=== PATIENT | female | born 1930 | race Caucasian/White ===

== ENCOUNTER → 2016-11-25 | Outpatient (CLI) | payer OTHER ==
[~2016-11-25] MED LIST: ACET325T96 PO; ASPEC325 PO; CALCTAB7 PO; CLB200 PO; CLC100 PO; CLX20 PO; MCRK20 PO; RQP25 PO; WARF1TAB PO; vancomycin IV.
--- NOTE | 2016-11-25 12:09 | DIAGNOSTIC IMAGING REPORT ---
PET/CT SKULL-THIGH CLINICAL HISTORY: LUNG CANCER COMPARISON STUDY: No previous studies for comparison. FINDINGS: The patient was injected with 16 mCi of F 18 labeled FDG. Following the standard induction phase, PET/CT scanning was performed from the skull base to the upper thigh region. Within the neck, there is an FDG avid multinodular right lobe thyroid goiter. Significant left lobe thyroid tissue is not visualized and correlation with a history of prior surgery is advocated. The thyroid gland has FDG maximum of 5.9. Adjacent to the right lobe of the thyroid isn't FDG avid 11 mm lymph node with SUV maximum of 9.3. Within the chest, there is an FDG avid 1 cm right paratracheal lymph node with SUV maximum of 7.9. Additional smaller nonpathologically enlarged right paratracheal lymph nodes are also FDG avid. There are FDG avid nonpathologically enlarged AP window lymph nodes. There is an FDG avid nonpathologically enlarged subcarinal lymph node. There is a left-sided chest tube present. There is a loculated moderate left pleural effusion. The left pleural surface is FDG avid. In the absence of pleural cysts, this may indicate pleural metastatic disease. There is an 18 mm spiculated nodule within the anterior aspect of the left upper lobe. This is FDG avid with SUV maximum of 5.7. There are left lower lobe atelectatic changes. Within the abdomen, there is mild thickening of the left adrenal gland which is FDG avid with an FDG maximum of 3.3. There is no pathologic hepatic activity. There is cholelithiasis. There are postsurgical changes present within the lumbar spine and left hip.. IMPRESSION: 1. 18 mm spiculated nodule within the anterior aspect of the left upper lobe. This is FDG avid with SUV maximum of 5.7. Malignancy is suspected. 2. FDG avid mediastinal lymph nodes. 3. FDG avid right supraclavicular lymph node 4. FDG avid multinodular right lobe thyroid goiter. 5. Moderate loculated left pleural effusion. Left pleural drain. FDG avid pleural surface on the left. In the absence of a pleurodesis, the findings are viewed as suspicious for pleural metastasis. Electronically signed by: Manjit Ogden M.D. 11/25/2016 12:07 PM Dictated Date/Time: 11/25/2016 11:53 AM
== END | disposition home or self-care (01) ==
LOC: C.PET 08:49
PROVIDERS: ATTEND Internal Medicine Hematology & Oncology
DX: C34.90 Malignant neoplasm of unspecified part of unspecified bronchus or lung (principal)

== ENCOUNTER 2016-12-02 13:02 | Inpatient (IN) | payer OTHER ==
[~2016-12-02] VITALS: Ht 160 cm; Wt 52.4 kg
[~2016-12-02 13:02] MED LIST changes: -ACET325T96 PO; -CALCTAB7 PO; -CLC100 PO; -CLX20 PO; -MCRK20 PO; -RQP25 PO; -WARF1TAB PO; -vancomycin IV.
[2016-12-02] MEDS ORDERED: ONDANSETRON INJ 2 MG/ML 2 ML VIAL IV PRN (13:15)
[2016-12-02] MEDS ORDERED: ENOXAPARIN 40 MG/0.4 ML SYR SQ SCH (13:15)
[2016-12-02] MEDS ORDERED: ACETAMINOPHEN 325 MG TAB PO PRN (13:15)
[2016-12-02] MEDS ORDERED: BISACODYL 10 MG SUPP PR PRN (13:15)
[2016-12-02] MEDS ORDERED: SOD PHOSPHATE/SOD BIPHOSPHATE ENEMA 132 ML BTL PR PRN (13:15)
[2016-12-02 13:45] VITALS: BP 94/65; PULSE 93; TEMP 36.4; O2SAT 92; BMI 18.8
[2016-12-02] MEDS ORDERED: DORNASE ALFA 2.5MG 5 ML in SYRINGE 25 ML IPL ONE (13:45)
[2016-12-02] MEDS ORDERED: DORNASE ALFA (2500U) 2.5MG/2.5ML IPL ONE (13:45)
[2016-12-02] MEDS ORDERED: ALTEPLASE, RECOMBINANT 1 MG/ML 2 ML VIAL IPL ONE (13:45)
[2016-12-02] MEDS ORDERED: PATIENT'S HEIGHT AND/OR WEIGHT NEEDED SCH (14:15)
--- NOTE | 2016-12-02 14:31 | Progress Note ---
Progress Note Date of Service December 02, 2016. Progress Note spoke with ct surgery regarding pt, send in from office after eval for previous placed chest tube. reportedly, pt with h/o MRSA empyema, chest tube placed at another facility, not draining, admitted from office today. Plan is undergo additional procedure today to increase drainage. then will be admitted and placed on abx. Outside records reportedly + for MRSA empyema. Formal consult to follow, pt for procedure today Would suggest sending fluid for culture, would also obtain blood cultures Will review records, would suggest starting Vanco IV pending additional culture results await results
[2016-12-02] MEDS: SODIUM CHLORIDE 0.9% 1000ML 1,000 ML IV SCH (14:40)
[2016-12-02 14:45] VITALS: BP 92/62; PULSE 100; TEMP 36.2; O2SAT 92
[2016-12-02 14:56] LABS: BASO % 0.1 %; BASO ABS # 0.02 K/uL (0-0.2); EOS % 0.1 %; HEMATOCRIT 42.1 % (37-47); IG% 1.5 %; LYMPH % 4.4 %; LYMPH ABS # 0.76 K/uL (1.2-3.4); MEAN CELL VOLUME 87.5 fL (80-100); MEAN CORPUSCULAR HEMOGLOBIN 29.3 pg (25-34); MEAN PLATELET VOLUME 9.6 fL (7.4-10.4); MONO % 3.2 %; NEUT % 90.7 %; PLATELET COUNT 415 K/uL (130-400); RED BLOOD COUNT 4.81 M/uL (4.2-5.4)
[2016-12-02 14:58] LABS: COMPLETE YES; MEAN CORPUSCULAR HGB CONC 33.5 g/dl (32-36)
[2016-12-02 15:09] LABS: INR 1.1 (0.9-1.1); PARTIAL THROMBOPLASTIN RATIO 1.1; PROTHROMBIN TIME (PATIENT) 11.4 SECONDS (9.0-12.0)
[2016-12-02] MEDS ORDERED: VANCOMYCIN TROUGH ONE (15:30)
[2016-12-02 15:43] LABS: ALB/GLOB RATIO 0.5 (0.9-2); BUN/CREATININE RATIO 17.7 (10-20); CALCIUM 8.8 mg/dl (8.5-10.1); MAGNESIUM 2.3 mg/dl (1.8-2.4)
--- NOTE | 2016-12-02 15:47 | DIAGNOSTIC IMAGING REPORT ---
CHEST ONE VIEW PORTABLE CLINICAL HISTORY: empyema COMPARISON STUDY: PET/CT scan dated 11/25/2016 FINDINGS: The heart is enlarged. There is been interval insertion of a left-sided chest tube. There is a persistent left pleural effusion with associated left basilar atelectasis/consolidation. No pneumothorax is visualized. The right lung is clear[ IMPRESSION: 1. Interval insertion of a left-sided chest tube 2. Persistent left pleural effusion with associated left lower lobe atelectasis/consolidation Electronically signed by: Manjit Ogden M.D. 12/02/2016 3:45 PM Dictated Date/Time: 12/02/2016 3:43 PM
[2016-12-02] MEDS ORDERED: LIDOCAINE HCL 1% 20 ML VIAL ONE (16:04)
[2016-12-02 16:32] VITALS: O2SAT 92
[2016-12-02] MEDS ORDERED: VANCOMYCIN CONSULT ACTIVE PRN (16:45)
[2016-12-02] MEDS ORDERED: VANCOMYCIN INJ 1,350 MG in SODIUM CHLORIDE 0.9% 250ML 250 ML IV ONE (17:00)
--- NOTE | 2016-12-02 17:15 | HISTORY & PHYSICAL EXAMINATION ---
DATE OF ADMISSION: 12/02/2016 HISTORY OF PRESENT ILLNESS: Ms. Sanchez is an 86-year-old female who was found to have a large left pleural effusion and underwent insertion of a PleurX catheter down at [facility] at least 2-3 weeks ago. She underwent a PET scan on 11/25/2016 which showed hypermetabolic activity which was consistent with the adenocarcinoma which was seen on cytology of the pleural fluid. This PleurX catheter was directed towards the apex. There is not really any fluid. I was asked to see her today to help manage this catheter. We drained a few mL of pus and I am told by her machine learning intern that they have cultured methicillin-resistant Staph aureus. For this reason, we asked for her to be admitted, although she does not appear to be febrile, she was quite cachectic in appearance and was not as responsive as I would have liked. I had a long talk with the patient and her younger sister. We brought her into the hospital and I attempted to do MIST-2 protocol and then instilled tissue plasminogen activator into this tube, but we got very little and it simply would not go in. We got very little out. We then tried Pulmozyme and the same thing happened. I was concerned about her and after reviewing her CT which was done with her PET scan on 11/25/2016, I elected to insert another PleurX catheter. This was done at the patient's bedside and we drained about 1600 mL of clear yellow fluid with a pH of 7.41. It is unlikely that we are simply dealing with a loculated pleural effusion and she does not have an empyema. We are going to check a CT scan now. For specifics of my history and physical, please see the office note dated today.
[2016-12-02 17:52] LABS: PLEURAL FLUID TOTAL PROTEIN 4.5 g/dl
[2016-12-02 18:23] LABS: PLEURAL FLUID APPEARANCE CLEAR; PLEURAL FLUID COLOR YELLOW; PLEURAL FLUID MONONUC RELAT 87.3 %; PLEURAL FLUID POLYNUC 12.7 %; PLEURAL FLUID SOURCE LEFT LUNG; PLEURAL FLUID WBC (A) 334 /uL
[2016-12-02] MEDS: BUDESONIDE 0.5 MG/2 ML VIAL (PULMICORT) INH SCH (19:17)
[2016-12-02 19:24] VITALS: PULSE 92; O2SAT 93
[2016-12-02 20:21] VITALS: BP 99/66; PULSE 91; TEMP 36.6; O2SAT 95
--- NOTE | 2016-12-02 20:43 | Pharmacy Progress Note ---
Pharmacy Antibiotic Consult Date of Service: December 02, 2016. Pharmacy Dosing Scope Pharmacy is consulted to initiate Vancomycin IV dosing therapy, order appropriate labs and adjust drug dose/frequency. Subjective The patient is a 86 year old female admitted on December 02, 2016 at 13:31. Objective Height (Feet): 5 Height (Inches): 6.00 Weight (Kilograms): 52.900 Lab Results (24hrs): Laboratory Tests Test 12/02/16 14:35 BUN/Creatinine Ratio 17.7 Blood Urea Nitrogen 18 mg/dl Creatinine 1.00 mg/dl White Blood Count 17.40 K/uL Red Blood Count 4.81 M/uL Hemoglobin 14.1 g/dL Hematocrit 42.1 % Mean Corpuscular Volume 87.5 fL Mean Corpuscular Hemoglobin 29.3 pg Mean Corpuscular Hemoglobin Concent 33.5 g/dl Platelet Count 415 K/uL Mean Platelet Volume 9.6 fL Neutrophils (%) (Auto) 90.7 % Lymphocytes (%) (Auto) 4.4 % Monocytes (%) (Auto) 3.2 % Eosinophils (%) (Auto) 0.1 % Basophils (%) (Auto) 0.1 % Neutrophils # (Auto) 15.78 K/uL Lymphocytes # (Auto) 0.76 K/uL Monocytes # (Auto) 0.56 K/uL Eosinophils # (Auto) 0.02 K/uL Basophils # (Auto) 0.02 K/uL Micro Results: Item Value Date Time Blood Culture Received 12/02/16 1435 Blood Pending Blood Culture Received 12/02/16 1446 Blood Pending Gram Stain - Final Resulted 12/02/16 1630 Pleural Fluid (Thoracentesis) Left Acid Fast Stain Received 12/02/16 1630 Pleural Fluid (Thoracentesis) Left Pending Fungal Smear Received 12/02/16 1630 Pleural Fluid (Thoracentesis) Left Pending MRSA DNA Surveillance Screen - Final Complete 12/02/16 1800 Nasal Specimen Positive for MRSA by DNA Probe Assessment & Plan Assessment 86 yr old female admitted with MRSA empyema s/p PleurX catheter placement. Plan Vancomycin IV for treatment of MRSA empyema * Loading dose: 1350 mg IV X 1 * Maintenance dose: 800 mg IV every 24 hours * Goal trough level estimate for empyema: between 15 - 20 mcg/mL. * Trough level has been ordered for: . Pharmacy will continue to follow and will adjust dose/frequency as necessary. Thank you
[2016-12-02] MEDS: DOCUSATE SODIUM 100 MG CAP PO SCH (20:44)
[2016-12-02] MEDS: HEPARIN SOD 5000 UNIT/0.5 ML CARP SQ SCH (20:45)
--- NOTE | 2016-12-02 22:18 | DIAGNOSTIC IMAGING REPORT ---
CT SCAN OF THE CHEST WITHOUT IV CONTRAST CLINICAL HISTORY: Pleural effusion. History of lung cancer. COMPARISON STUDY: PET/CT dated 11/25/2016. Chest x-ray dated 12/02/2016. TECHNIQUE: CT scan of the thorax was performed from the thoracic inlet to the upper abdomen. Images are reviewed in the axial, sagittal, and coronal planes. IV contrast was not administered for this examination as per the referring clinician. Note that the examination was performed in suboptimal fashion without IV contrast. CT DOSE: 346.21 mGy.cm FINDINGS: Thyroid: The right lobe of the thyroid gland is markedly enlarged and heterogeneous. Numerous nodules are identified measuring up to at least 2 cm. The left lobe is diminutive versus surgically absent. Thoracic aorta: There is mild atherosclerotic calcification of the thoracic aorta, which is normal in caliber and demonstrates standard 3-vessel arch anatomy. Heart: The heart is normal in size and there is a small pericardial effusion. Lungs and pleural spaces: A chest tube terminates at the left apex, entering laterally between the seventh and eighth ribs. There is trace left-sided pneumothorax, largest at the left lung base as seen on image #192. There are moderate left and small right pleural effusions with associated atelectasis. Mild emphysema is noted. Patchy airspace opacities at the left lung base likely represent atelectasis. A 2.1 cm spiculated lesion in the anterior left upper lobe seen on image #163 is unchanged. Mediastinum: There are mildly enlarged mediastinal lymph nodes. A precarinal node on image #114 and measures 11 mm short axis. A mildly enlarged subcarinal node on image #144 measures 12 mm short axis. These are similar to the 11/25/2016 and PET examination. Inés: Not well assessed without IV contrast. Axillae: There is no axillary lymphadenopathy. Upper abdomen: There is a punctate nonobstructing calculus in the upper pole of the right kidney. A small hiatal hernia is identified. An indeterminant attenuation lesion in the right hepatic lobe on image #239 is unchanged and measures 2.7 cm. Calcified gallstones are identified. Skeletal structures: The skeletal structures are osteopenic. No lytic or blastic bony lesions are seen. Fusion hardware is partially imaged at the thoracal lumbar junction. There is a severe compression deformity of L2, only partially imaged. IMPRESSION: 1. A left-sided chest tube is in place. The tip terminates at the left apex. 2. There is a trace left pneumothorax. 3. There are moderate left and small right pleural effusions. 4. A spiculated lesion in the left upper lobe as well as mildly enlarged mediastinal lymph nodes are not significantly changed from the 11/25/2016 examination. 5. Patchy airspace opacities at the left lung base likely represent atelectasis. Correlated clinically for evidence of superimposed pneumonia/aspiration pneumonitis. 6. Cholelithiasis and right-sided nephrolithiasis. 7. Additional findings as above. Electronically signed by: Vincent Pitts M.D. 12/02/2016 10:17 PM Dictated Date/Time: 12/02/2016 10:09 PM
[2016-12-02 22:22] LABS: URINE APPEARANCE CLEAR (CLEAR); URINE BILIRUBIN NEG (NEG); URINE COLOR DK YELLOW; URINE NITRITE NEG (NEG); URINE PH 5.5 (4.5-7.5); URINE SPECIFIC GRAVITY 1.033 (1.000-1.030); UROBILINOGEN NEG (NEG)
[2016-12-02 22:26] LABS: MANUAL MICROSCOPIC REQUIRED? NO; REVIEW REQ? NO
[2016-12-03] VITALS (10 sets, daily range): BP systolic 96–114; BP diastolic 56–70; PULSE 83–96; TEMP 36.5–36.8; O2SAT 93–100; BMI 16.9
[2016-12-03] MEDS: SODIUM CHLORIDE 0.9% 1000ML 1,000 ML IV SCH ×2 (02:30→15:37)
--- NOTE | 2016-12-03 03:28 | OPERATIVE REPORT ---
DATE OF OPERATION: 12/02/2016 PREOPERATIVE DIAGNOSES: 1. Possible methicillin-resistant Staphylococcus aureus empyema left pleural cavity. 2. Left malignant pleural effusion. 3. Probable lung cancer. POSTOPERATIVE DIAGNOSES: Same. PROCEDURE: Insertion of a left PleurX catheter. SURGEON: Huang Coates MD AUTOMATION ANALYST: MARY Casanova ANESTHESIA: Local. SPECIFICS OF PROCEDURE: Under ultrasound guidance, an area was selected anterior and a bit posterior to the mid axillary line. After prepping and draping in usual sterile technique and calling appropriate timeout, a skin wheal was raised 25-gauge needle, 1% Xylocaine. A large bore needle was used to anesthetize the skin and subcutaneous tissues until we had free flowing clear fluid back. Guidewire was inserted through the needle and needle removed. This insertion site was enlarged to 1 cm at the site the guidewire was exiting. Approximately 10 cm anterior and inferior, no skin wheal was raised 25-gauge needle, 1% Xylocaine. A 1 cm incision was made. A long needle with 1% Xylocaine was used to anesthetize subcutaneous tissues between the 2 incision sites. A tunneler was attached to the PleurX catheter and dragged from the anterior to posterior site. A tunneler was removed. Then an introducer sheath was slid over the guidewire into the pleural cavity and the inner cannula and guidewire removed and then the PleurX catheter was inserted through the peel away sheath which was removed. Two separate 3-0 silk sutures were used to close the posterior incision and 3-0 silk suture was used to anchor the PleurX to the patient's skin anteriorly. 1600 mL of clear yellow fluid was drained. The pH was 7.41. We are going to send the patient down for a CT scan without contrast. I attest to the content of the Intraoperative Record and any orders documented therein. Any exceptio ns are noted below.
[2016-12-03 05:56] LABS: BASO % 0.4 %; BASO ABS # 0.04 K/uL (0-0.2); COMPLETE YES; EOS % 1.1 %; HEMATOCRIT 36.8 % (37-47); IG% 1.8 %; LYMPH % 9.6 %; LYMPH ABS # 1.09 K/uL (1.2-3.4); MEAN CELL VOLUME 87.4 fL (80-100); MEAN CORPUSCULAR HEMOGLOBIN 28.7 pg (25-34); MEAN CORPUSCULAR HGB CONC 32.9 g/dl (32-36); MEAN PLATELET VOLUME 9.2 fL (7.4-10.4); MONO % 7.3 %; NEUT % 79.8 %; PLATELET COUNT 342 K/uL (130-400); RED BLOOD COUNT 4.21 M/uL (4.2-5.4); WHITE BLOOD COUNT 11.31 K/uL (4.8-10.8)
[2016-12-03] MEDS ORDERED: DORNASE ALFA (2500U) 2.5MG/2.5ML INH ONE (06:30)
[2016-12-03] MEDS ORDERED: ALTEPLASE, RECOMBINANT 1 MG/ML 2 ML VIAL IPL ONE ×4 (06:30→15:00)
[2016-12-03] MEDS ORDERED: DORNASE ALFA (2500U) 2.5MG/2.5ML IPL ONE ×2 (06:30→15:00)
[2016-12-03] MEDS ORDERED: DORNASE ALFA 2.5MG 5 ML in SYRINGE 25 ML IPL ONE ×2 (06:30→15:00)
[2016-12-03] MEDS ORDERED: ALTEPLASE, RECOMBINANT 1 MG/ML 2 ML VIAL IV ONE (06:30)
[2016-12-03] MEDS: BUDESONIDE 0.5 MG/2 ML VIAL (PULMICORT) INH SCH ×2 (07:14→19:08)
--- NOTE | 2016-12-03 07:25 | DIAGNOSTIC IMAGING REPORT ---
CHEST ONE VIEW PORTABLE CLINICAL HISTORY: Empyema. COMPARISON STUDY: Chest CT December 02, 2016. FINDINGS: Lumbar spine fusion hardware is partially imaged. There is a trace left pneumothorax. A small residual left pleural effusion has significantly decreased in size since chest radiograph December 02, 2016. There is no evidence of pulmonary edema. Cardiac size is normal. Mediastinal contours are normal. Two left pleural drains remain in place. IMPRESSION: Two left pleural catheters in place. Trace left pneumothorax with small residual pleural effusion. Electronically signed by: Rito Hart M.D. 12/03/2016 7:24 AM Dictated Date/Time: 12/03/2016 7:21 AM
[2016-12-03] MEDS: HEPARIN SOD 5000 UNIT/0.5 ML CARP SQ SCH ×2 (07:33→20:33)
[2016-12-03] MEDS: CITALOPRAM 20 MG TAB PO SCH (07:34)
[2016-12-03] MEDS: DOCUSATE SODIUM 100 MG CAP PO SCH ×2 (07:35→20:28)
--- NOTE | 2016-12-03 08:28 | SURGERY PROGRESS NOTE ---
DATE: 12/03/2016 DATE: 12/03/2016. Ms. Sanchez was seen today and quite frankly looks quite good. Her pulse oximetry is 97% on room air and she had a comfortable night. I was actually in the hospital about 11:00 last night and she was soundly sleeping. Her x-ray today looks much improved. Her CT scan shows she does have some loculations. Her old PleurX catheter is going to be removed today. We are also going to institute the MIST-2 protocol through our new PleurX catheter. She was drained for about 650 mL today. She looks much better. She also feels better and is more awake and alert.
--- NOTE | 2016-12-03 11:36 | Progress Note ---
Progress Note Date of Service December 03, 2016. Progress Note ID Consult Dictated #[id number] A/P: 1. PATRICK empyema, newly diagnosed adeno ca 2. + blood culture 3. Leukocytosis - improving -continue vanco, follow cultures -repeat blood cultures -suggest echo -follow fluid culture, no growth to date -will follow, thank you
--- NOTE | 2016-12-03 12:08 | INFECT. DISEASE CONSULTATION ---
DATE OF CONSULTATION: 12/03/2016 REQUESTING PHYSICIAN: Dr. Coates. HISTORY OF PRESENT ILLNESS: This is an 86-year-old female who was admitted yesterday from CT surgery office after she was evaluated there for a left pleural effusion and a chest tube insertion. This was initially done at [facility] 2-3 weeks prior to admission. She did have a PET scan at the end of October on an outpatient basis which did show adenocarcinoma. This was also noted on cytology from pleural fluid per the H\T\P. Per the H\T\P, she does have a history of MRSA growing from the pleural fluid as well. She was subsequently admitted for treatment of this as well as a repeat procedure as she was not having a significant amount of drainage from the catheter. She did have a catheter exchange yesterday and 1.6 liters of clear yellow fluid was returned. She tolerated the procedure well. She denies any fevers or chills. She denies any shortness of breath. She was placed empirically on vancomycin and she is tolerating this well. All remaining review of systems is reviewed and is unremarkable. PAST MEDICAL HISTORY: She denies any other significant past medical history other than recently diagnosed adenocarcinoma. PAST SURGICAL HISTORY: Include back surgery as well as chest tube placement. ALLERGIES: She has no known drug allergies. FAMILY HISTORY: Noncontributory. CURRENT MEDICATIONS: Include vancomycin, Celexa, subQ heparin, Pulmicort, Colace, Tylenol, Zofran, Dulcolax, and Percocet. PHYSICAL EXAMINATION: VITAL SIGNS: She is afebrile, pulse 96, respiratory rate 20, blood pressure 100/56, oxygen saturation is 94-97% on room air. GENERAL: She is awake, alert and oriented x3. She is in no acute distress. HEENT: Mucous membranes are moist. She is overall cachectic appearing. HEART: Regular. LUNGS: Clear with decreased breath sounds bilaterally. A chest tube is in place on the left. ABDOMEN: Soft and nontender. There is no edema bilaterally. SKIN: Without rash. LABORATORY STUDIES: CBC today reveals a white blood cell count of 11.3 down from 17.4 yesterday, hemoglobin 12.1 and platelets are 342. Chemistry panel yesterday reveals a sodium of 138, potassium 4.0, chloride 103, bicarbonate 26, BUN 18, creatinine 1.0, glucose is 135. AST is 36, ALT is 56. Left lung fluid reveals a yellow clear fluid with 334 WBC's, the majority being neutrophils. A urine culture, fungal, AFB and routine cultures so far from the pleural fluid are negative. She did have blood cultures done yesterday upon admission and they are growing gram positive cocci in 1 of 2 sets. IMAGING DATA: Chest CT was performed yesterday which shows a chest tube in the left lung with trace pneumothorax. There is moderate left effusion with associated atelectasis, a spiculated lesion in the left upper lobe is unchanged from studies on November 25. Chest x-ray was obtained this morning which shows a trace pneumothorax. ASSESSMENT AND PLAN: 1. Positive blood cultures with gram positive cocci. 2. Reported empyema with history. At this time, blood cultures will be repeated and echocardiogram should be obtained. I will await cultures of both blood and pleural fluid. We will follow along with you. Thank you for this consultation.
--- NOTE | 2016-12-03 15:04 | Progress Note ---
Progress Note Date of Service December 03, 2016. Progress Note Through new pleurex catheter that was placed yesterday, 10 mg alteplase instilled (0800). Catheter drained 1 hour later for minimal drainage. 5 mg dornse subsequently instilled (0930) Old pleurex catheter was removed without difficulty. 10 mg alteplase placed in pleurex at 1530. Drained 1 hour later for 250 cc. 5 mg dornase placed at 1630. RN to drain in 2 hours
[2016-12-03] MEDS ORDERED: VANCOMYCIN INJ 800 MG in SODIUM CHLORIDE 0.9% 250ML 250 ML IV SCH (16:00)
[2016-12-04] VITALS (8 sets, daily range): BP systolic 92–102; BP diastolic 60–65; PULSE 80–93; TEMP 36.5–36.9; O2SAT 94–96; BMI 18.3
[2016-12-04] MEDS: SODIUM CHLORIDE 0.9% 1000ML 1,000 ML IV SCH ×2 (04:55→18:28)
[2016-12-04] MEDS ORDERED: ALTEPLASE, RECOMBINANT 1 MG/ML 2 ML VIAL IPL ONE ×3 (06:30→14:30)
[2016-12-04] MEDS ORDERED: DORNASE ALFA (2500U) 2.5MG/2.5ML INH ONE (06:30)
[2016-12-04] MEDS ORDERED: DORNASE ALFA (2500U) 2.5MG/2.5ML IPL ONE ×2 (06:30→14:30)
[2016-12-04] MEDS ORDERED: ALTEPLASE, RECOMBINANT 1 MG/ML 2 ML VIAL IV ONE ×2 (06:30→14:30)
[2016-12-04] MEDS ORDERED: DORNASE ALFA 2.5MG 5 ML in SYRINGE 25 ML IPL ONE (06:30)
[2016-12-04] MEDS: HEPARIN SOD 5000 UNIT/0.5 ML CARP SQ SCH ×2 (07:31→19:40)
[2016-12-04] MEDS: DOCUSATE SODIUM 100 MG CAP PO SCH ×2 (07:32→19:37)
[2016-12-04] MEDS: CITALOPRAM 20 MG TAB PO SCH (07:33)
--- NOTE | 2016-12-04 07:38 | DIAGNOSTIC IMAGING REPORT ---
CHEST ONE VIEW PORTABLE CLINICAL HISTORY: Effusion. History of lung cancer. COMPARISON STUDY: Chest radiograph December 03, 2016. FINDINGS: Lumbar spine hardware is partially imaged. One left pleural catheter remains in place. There is a trace left pneumothorax. There is a trace left pleural effusion. Bibasilar opacities favor atelectasis. Emphysema is noted. Cardiac size is normal. Mediastinal contours are normal. IMPRESSION: Left pleural catheter remains in place. Trace left hydropneumothorax. Electronically signed by: Rito Hart M.D. 12/04/2016 7:37 AM Dictated Date/Time: 12/04/2016 7:35 AM
[2016-12-04] MEDS: BUDESONIDE 0.5 MG/2 ML VIAL (PULMICORT) INH SCH ×2 (07:41→19:07)
--- NOTE | 2016-12-04 09:33 | SURGERY PROGRESS NOTE ---
DATE: 12/04/2016 DATE: 12/04/2016. Ms. Sanchez was seen today on 12/04/2016. We removed her superior left PleurX catheter, which appeared to be infected yesterday. We have been using the MIST protocol and have actually drained quite a bit of fluid from her. Initially, we did not drain much; however yesterday we drained a total of 1200 mL and this morning drained 275. We have been instilling the tissue plasminogen activator as well as Pulmozyme. I thought her x-ray looked quite good. She has a tiny area of hydropneumothorax but this is probably a result of injecting the TPA in this morning. At this point, she does have multiple blood cultures positive for staph aureus. It is important to note that her white count dropped from 17,400 on admission to 11,310. She is on room air 95% sat. She looks much better. She is much more lucid. She is sitting up eating breakfast. She feels much improved but really does not remember being in my office the other day. ASSESSMENT AND PLAN: Questionable right empyema/this could have been infection of the PleurX catheter itself. We see no growth in the pleural fluid we sent off. I thought her x-ray looked quite good today. We are going to continue the MIST-2 protocol through the weekend and repeat a CT scan on Wednesday.
--- NOTE | 2016-12-04 11:29 | Pharmacy Progress Note ---
Pharmacy Antibiotic Prog Note Date of Service December 04, 2016. Subjective The patient is currently receiving vancomycin 800 mg IV every 24 hours. The patient is currently on day # 3 of vancomycin IV therapy. Objective Height (Feet): 5 Height (Inches): 6.00 Weight (Kilograms): 51.500 Assessment & Plan Assessment * 86 yo F with empyema/possible PleurX catheter infection s/p removal today (12/04 ) now with confirmed 2/2 S. aureus in 12/02/16 blood cultures. 12/03/16 blood cultures pending. WBC trending down, but still elevated. Afebrile. * Goal vancomycin level 15-20 mcg/mL * Level was scheduled for tomorrow. However, due to confirmed bacteremia will move up level to today. Of note, this will be prior to steady state (and thus may be falsely low) but will allow for estimation of steady state level to help determine if a change in dose is necessary * Level was significantly subtherapeutic at 4.5 mcg/mL * Sent up one time 20 mg/kg re-load * Will shorten interval from q24h to q12h * SCr not drawn since admission. Will order for today, with trough level. * Still pending at this time. Not likely to be significantly elevated as the vancomycin level is very low. Will follow-up this evening to be sure. Plan * Increase vancomycin 1000 mg IV x1 now then 800 mg IV q12h * Vancomycin trough 12/06 @ 0330 * Follow-up SCr today to ensure not significantly elevated above baseline Pharmacy will continue to follow and will adjust dose/frequency as necessary. Thank you
--- NOTE | 2016-12-04 14:16 | Progress Note ---
Subjective Date of Service: December 04, 2016. Subjective pt initial blood cultures with S.aureus, final pending. No fevers overnight. pleural fluid cultures so far negative, reported MRSA from [facility] cultures. Repeat blood cultures pending,tolerating abx. wbc imrproving today. Objective Vital Signs Date Time Temp Pulse Resp B/P Pulse Ox O2 Delivery O2 Flow Rate FiO2 12/04/16 11:30 36.5 93 16 100/64 95 Room Air 12/04/16 08:00 Room Air 12/04/16 07:47 36.6 83 16 92/60 95 Room Air 12/04/16 07:10 85 16 94 Room Air 12/04/16 04:00 36.6 88 20 102/65 94 12/04/16 00:00 Room Air 12/03/16 23:44 36.7 83 19 99/62 95 Room Air 12/03/16 20:00 Room Air 12/03/16 19:13 36.8 88 20 105/69 100 Room Air 12/03/16 19:08 91 14 94 Room Air 12/03/16 16:17 36.7 83 14 110/70 94 Room Air 12/03/16 16:00 Room Air Laboratory Results Item Value Date Time Blood Culture - Preliminary Resulted 12/02/16 1435 Blood Staphylococcus Aureus Blood Culture - Preliminary Resulted 12/02/16 1446 Blood Staphylococcus Aureus Gram Stain - Final Resulted 12/02/16 1630 Pleural Fluid (Thoracentesis) Left Assessment and Plan (1) Staphylococcus aureus septicemia Assessment & Plan: follow repeat blood cultures, pending. continue vanco for now. reported h/o MRSA. Await final sensitivity. follow pleural cultures, negative to date. (2) Empyema lung (3) Leukocytosis
[2016-12-04] MEDS: DORNASE ALFA 2.5MG 5 ML in SYRINGE 25 ML IPL ONE (16:00)
[2016-12-04] MEDS ORDERED: VANCOMYCIN INJ 1,000 MG in SODIUM CHLORIDE 0.9% 250ML 250 ML IV STA (16:15)
--- NOTE | 2016-12-04 16:16 | Progress Note ---
Progress Note Date of Service December 04, 2016. Progress Note 10 mg alteplase placed in pleurex (0800) Was drainaed for 75 cc 1 hour later, then 5 mg dornase placed (0900) and drained 2 hours later for 75 cc. 10 mg TPA placed (1500) and drained 1 hour later for 150 cc. 5 mg dornase placed (1615)-- RN to drain in approx 2 hours.
[2016-12-04 16:34] LABS: CREATININE 0.58 mg/dl (0.60-1.20)
[2016-12-04] MEDS: OXYCODONE/ACETAMINOPHEN 5-325 TAB PO PRN (19:37)
[2016-12-05] VITALS (10 sets, daily range): BP systolic 101–116; BP diastolic 65–74; PULSE 84–91; TEMP 36.6–36.8; O2SAT 94–96; BMI 19.9
[2016-12-05] MEDS: VANCOMYCIN INJ 800 MG in SODIUM CHLORIDE 0.9% 250ML 250 ML IV SCH ×2 (04:02→16:43)
[2016-12-05 05:51] LABS: HEMATOCRIT 36.3 % (37-47); MEAN CELL VOLUME 88.8 fL (80-100); MEAN CORPUSCULAR HEMOGLOBIN 27.1 pg (25-34); MEAN CORPUSCULAR HGB CONC 30.6 g/dl (32-36); MEAN PLATELET VOLUME 9.2 fL (7.4-10.4); PLATELET COUNT 323 K/uL (130-400); RED BLOOD COUNT 4.09 M/uL (4.2-5.4); WHITE BLOOD COUNT 6.61 K/uL (4.8-10.8)
[2016-12-05 06:19] LABS: CREATININE 0.52 mg/dl (0.60-1.20)
[2016-12-05] MEDS ORDERED: ALTEPLASE, RECOMBINANT 1 MG/ML 2 ML VIAL IV ONE (06:30)
[2016-12-05] MEDS ORDERED: DORNASE ALFA (2500U) 2.5MG/2.5ML IPL ONE (06:30)
[2016-12-05] MEDS ORDERED: ALTEPLASE, RECOMBINANT 1 MG/ML 2 ML VIAL IPL ONE ×2 (06:30)
[2016-12-05] MEDS ORDERED: DORNASE ALFA (2500U) 2.5MG/2.5ML INH ONE (06:30)
[2016-12-05] MEDS ORDERED: DORNASE ALFA 2.5MG 5 ML in SYRINGE 25 ML IPL ONE (06:30)
--- NOTE | 2016-12-05 07:10 | DIAGNOSTIC IMAGING REPORT ---
CHEST ONE VIEW PORTABLE CLINICAL HISTORY: pleural effusion dyspnea COMPARISON STUDY: 12/04/2016 FINDINGS: Left basilar drainage tube unchanged in location. Mild left and to lesser extent right basilar atelectatic change. Minimal left apical pneumothorax unchanged. IMPRESSION: Unchanged evaluation of the chest. Stable appearance to left basilar drainage catheter. Very small left apical pneumothorax unchanged Electronically signed by: Macario Sterling M.D. 12/05/2016 7:09 AM Dictated Date/Time: 12/05/2016 7:08 AM
[2016-12-05] MEDS: BUDESONIDE 0.5 MG/2 ML VIAL (PULMICORT) INH SCH ×2 (07:43→19:13)
[2016-12-05] MEDS: DOCUSATE SODIUM 100 MG CAP PO SCH ×2 (08:44→20:24)
[2016-12-05] MEDS: CITALOPRAM 20 MG TAB PO SCH (08:44)
[2016-12-05] MEDS: SODIUM CHLORIDE 0.9% 1000ML 1,000 ML IV SCH ×2 (08:45→21:42)
[2016-12-05] MEDS: HEPARIN SOD 5000 UNIT/0.5 ML CARP SQ SCH ×2 (08:45→20:27)
--- NOTE | 2016-12-05 08:54 | SURGERY PROGRESS NOTE ---
DATE: 12/05/2016 DATE: 12/05/2016. SUBJECTIVE: Ms. Sanchez was seen today. She looks great. She is much more awake and oriented. She is 95% saturation on room air and she is not tachypneic. Her lungs sound great. She has no rhonchi, rales or decreased breath sounds. Her PleurX site is clean. Her white count is down to 6610. She did grow out a staph aureus from 2 blood cultures however her last 2 blood cultures are negative. Her x-ray looks quite good today. ASSESSMENT AND PLAN: 1. Loculated malignant right pleural effusion. 2. Questionable staph aureus sepsis. 3. Probable infection of initial superiorly oriented left PleurX catheter which has been removed. PLAN: We are going to continue the MIST protocol today through this afternoon. I am then going to check a CT scan tomorrow on 12/06/[address] scan of the chest will help me determine whether we go ahead and sclerose her with talc while she is here. It is also important to note that the fluid which we have drained through this PleurX catheter has not been infected.
--- NOTE | 2016-12-05 09:08 | OPERATIVE REPORT ---
DATE OF OPERATION: 12/05/2016 DATE OF PROCEDURE: 12/05/2016. PROCEDURE: Installation of thrombolytics via left PleurX catheter. SURGEON: Dr. Coates. SPECIFICS OF PROCEDURE: 10 mg of tissue plasminogen activator was mixed with 50 mL of normal of sterile water and injected sterilely through the tip of the PleurX catheter with a syringe and a sterile Angiocath. She tolerated this well. We will drain her again in the next 1-2 hours and then instill the dornase. I attest to the content of the Intraoperative Record and any orders documented therein. Any exceptio ns are noted below.
--- NOTE | 2016-12-05 11:50 | OPERATIVE REPORT ---
DATE OF OPERATION: 12/05/2016 PROCEDURE: Instillation of DNase via left PleurX catheter. SURGEON: Dr. Coates. SPECIFICS OF PROCEDURE: At the patient's bedside, her left PleurX catheter was sterilely prepped on the tip and 5 mg of Pulmozyme in 30 mL of normal saline was injected sterilely using IV catheter. She tolerated this very well. I re-capped it and we will drain her again in 2 hours. I attest to the content of the Intraoperative Record and any orders documented therein. Any exceptio ns are noted below.
[2016-12-05] MEDS ORDERED: VANCOMYCIN TROUGH ONE (15:30)
[2016-12-06] VITALS (9 sets, daily range): BP systolic 84–131; BP diastolic 54–79; PULSE 81–95; TEMP 36.2–36.8; O2SAT 95–100; BMI 19.3
[2016-12-06] MEDS ORDERED: VANCOMYCIN TROUGH ONE (03:30)
[2016-12-06] MEDS: VANCOMYCIN INJ 800 MG in SODIUM CHLORIDE 0.9% 250ML 250 ML IV SCH (03:54)
--- NOTE | 2016-12-06 07:36 | SURGERY PROGRESS NOTE ---
DATE: 12/06/2016 SUBJECTIVE: Ms. Sanchez was seen today, on 12/06/2016. She is afebrile. Her saturations are 96% on room air. Her PleurX catheter was drained for about 400 mL this morning. She looks and feels good. We are going to check a CT scan on her this morning. WINTER
[2016-12-06] MEDS: BUDESONIDE 0.5 MG/2 ML VIAL (PULMICORT) INH SCH ×2 (07:48→19:28)
[2016-12-06] MEDS: DOCUSATE SODIUM 100 MG CAP PO SCH ×2 (09:10→20:45)
[2016-12-06] MEDS: CITALOPRAM 20 MG TAB PO SCH (09:10)
[2016-12-06] MEDS: HEPARIN SOD 5000 UNIT/0.5 ML CARP SQ SCH ×2 (09:11→20:45)
[2016-12-06 09:30] LABS: CREATININE 0.43 mg/dl (0.60-1.20)
--- NOTE | 2016-12-06 10:11 | DIAGNOSTIC IMAGING REPORT ---
CT OF THE CHEST WITHOUT IV CONTRAST CLINICAL HISTORY: pleural effusion LUNG CARCINOMA. LEFT-SIDED EMPYEMA. COMPARISON STUDY: 12/02/2016 CT DOSE: 245.32 mGy.cm TECHNIQUE: CT of the thorax was performed from the thoracic inlet to the lung bases. Images are reviewed in the axial, sagittal, and coronal planes. IV contrast was not administered for this examination. FINDINGS: Thyroid: There is a multinodular right lobe thyroid goiter. Thoracic aorta: The thoracic aorta is normal in course and caliber, noting standard 3 vessel arch anatomy. Heart: There is a trace pericardial effusion Lungs and pleural spaces: There is no change in the position of the left-sided anterior chest tube. There are bilateral pleural effusions right greater than left. There is lower lobe bronchial wall thickening. There are bibasal airspace opacities, atelectatic versus inflammatory. There is an irregular marginated 19 mm left upper lobe pulmonary mass. Mediastinum: There is a mildly enlarged precarinal lymph node measuring 12 mm in short axis. Inés: Hilar structures are difficult to assess given the lack of intravenous contrast. Borderline enlarged left hilar lymph nodes are suspected Axilla: Clear. Upper abdomen: There is a stable right lobe hepatic hypodensity. There is cholelithiasis. There is mild fullness of the right renal collecting system. Two small upper pole right renal calculi are visualized. Skeletal structures: There are postsurgical changes of a spinal fusion. IMPRESSION: 1. No change in the orientation of the left-sided chest tube 2. Increasing right pleural effusion, and decreasing left pleural effusion 3. Bibasal or dependent airspace opacities, atelectatic versus inflammatory 4. 19 mm spiculated left upper lobe pulmonary mass 5. Mildly enlarged mediastinal lymph nodes 6. Cholelithiasis 7. Right-sided nephrolithiasis. Mild fullness the right renal collecting system 8. Stable nonspecific right lobe hepatic hypodensity Electronically signed by: Manjit Ogden M.D. 12/06/2016 10:09 AM Dictated Date/Time: 12/06/2016 10:02 AM
--- NOTE | 2016-12-06 10:33 | Pharmacy Progress Note ---
Pharmacy Antibiotic Prog Note Date of Service December 06, 2016. Subjective The patient is currently receiving Vanco 800 mg IV every 12 hours. Objective Height (Feet): 5 Height (Inches): 5.00 Weight (Kilograms): 52.500 Levels: Item Value Date Time Vancomycin Level Trough 11.7 mcg/ml 12/06/16 0330 Vancomycin Level Trough 4.5 mcg/ml 12/04/16 1535 Lab Results (24hrs): Test 12/06/16 03:30 12/06/16 08:58 Vancomycin Level Trough 11.7 mcg/ml (SEE COMMENT) Creatinine 0.43 mg/dl (0.60-1.20) Est Creatinine Clear Calc Drug Dose 77.8 ml/min Estimated GFR () 106.7 Estimated GFR (Non- 92.1 Micro Results: RUN DATE: 12/06/16 [facility] PAGE 1 RUN TIME: 951 Specimen Inquiry PATIENT: LAVELL WEEMS LOC: Diamond U # : [id number] AGE/SX: 86/F ROOM: E403 REG : 12/02/[address]: Huang Coates MD : 1930 BED: 1 DIS : STATUS: ADM IN TLOC: SPEC #: [id number] XU: 12/02/16 STATUS: COMP REQ #: [id number] RECD: 12/02/16 [facility] DR: Corey Lisa PA SOURCE: BLOOD ENTR: 12/02/16-[address] [facility] [address]: Kiko Perez M.D. [facility] Jennifer. Naranjo D.O. Whitlark, Huang Chavis MD ORDERED: BLOOD CULTURE Procedure Result Verified Site BLD CULT Final 12/06/16-0952 Organism 1 STAPHYLOCOCCUS AUREUS SENS SENSITIVITY TO FOLLOW SENSITIVITY RESULT INDICATES A METHICILLIN RESISTANT STAPH. AUREUS. PHONED TO [facility] (EBONY TAYLOR) ON 12/06/16 AT 0808 BY Ayad Cruz. Results were verbalized back to NANY. RESULTS WERE ALSO CALLED TO [facility] CONTROL ANSWERING MACHINE ON 12/06/16 BY NANY. Positive Blood Culture Gram Stain Report to ELLIE KEARNEY on 12/03/16 At 0959 [facility] Results were verbalized back to RYAN. 1. STAPHYLOCOCCUS AUREUS Target Route Dose RX AB Cost M.I.C. IQ ------ ----- ------ -- ------ -------- - ------ TRIMET/SULFA S <=0.5/ 9.5 * OXACILLIN R * >2 VANCOMYCIN S 1 ERYTHROMYCIN R >4 TETRACYCLINE S <=4 CLINDAMYCIN S <=0.5 DAPTOMYCIN S <=0.5 RIFAMPIN S <=1 S = SENSITIVE I = INTERMEDIATE R = RESISTANT END OF REPORT RUN DATE: 12/02/16 [facility] PAGE 1 RUN TIME: 1951 Specimen Inquiry PATIENT: LAVELL WEEMS LOC: Diamond U # : [id number] AGE/SX: 86/F ROOM: E403 REG : 12/02/[address]: WhitHuang reddy MD : 1930 BED: 1 DIS : STATUS: ADM IN TLOC: SPEC #: [id number] XU: 12/02/16 STATUS: COMP REQ #: [id number] RECD: 12/02/[address]: Corey Lisa PA SOURCE: NASAL ENTR: 12/02/[address]: Kiko Perez M.D. [facility]: Jennifer. Naranjo D.O. Whitlark, Joseph D., MD ORDERED: MRSA DNA COMMENTS: Has Specimen Been Obtained/Collected? Y Procedure Result Verified Site MRSA DNA (NASAL SWAB) Final 12/02/16-1951 Specimen Positive for MRSA by DNA Probe RESULTS WERE ALSO CALLED TO [facility] CONTROL ANSWERING MACHINE ON 12/02/16 BY THOMAS. Assessment & Plan Pt is currently receiving Vancomycin 800mg (15.5mg/kg) q12. Achieved a trough of 11.7mcg/mL prior to the third maintenance dose. I feel true Css may be close to 15mcg/mL. Ms. Weems is growing MRSA in 09/03 's with an MILTON of 1. Further, she has a MRSA positive nasal swab. Her renal fxn has steadily improved. For these reasons I have opted to increase the Vanco to 900mg (17mg/kg) q12 set to start at 1600 on 12/06/16. Lastly, her BMI is not indicative of Vanco accumulation. I have ordered a trough for 12/08/16 @ 0330 prior to the 4th MD to ensure therapeutic levels are being achieved. Thank you for consulting the pharmacy kinetic team and including us in the care of Ms. Weems. Pharmacy will continue to follow and will adjust dose/frequency as necessary. Thank you
[2016-12-06] MEDS: SODIUM CHLORIDE 0.9% 1000ML 1,000 ML IV SCH ×2 (11:00→23:49)
[2016-12-06] MEDS: VANCOMYCIN INJ 900 MG in SODIUM CHLORIDE 0.9% 250ML 250 ML IV SCH (16:00)
[2016-12-07] VITALS (8 sets, daily range): BP systolic 109–130; BP diastolic 70–79; PULSE 74–89; TEMP 36.6–36.8; O2SAT 92–96
[2016-12-07] MEDS ORDERED: ZOLPIDEM TARTRATE 5 MG TAB PO PRN (03:00)
[2016-12-07] MEDS: VANCOMYCIN INJ 900 MG in SODIUM CHLORIDE 0.9% 250ML 250 ML IV SCH ×2 (03:31→15:43)
[2016-12-07] MEDS: BUDESONIDE 0.5 MG/2 ML VIAL (PULMICORT) INH SCH ×2 (07:09→19:10)
[2016-12-07] MEDS: DOCUSATE SODIUM 100 MG CAP PO SCH ×2 (09:06→21:12)
[2016-12-07] MEDS: CITALOPRAM 20 MG TAB PO SCH (09:06)
[2016-12-07] MEDS: HEPARIN SOD 5000 UNIT/0.5 ML CARP SQ SCH ×2 (09:07→21:13)
--- NOTE | 2016-12-07 10:06 | Progress Note ---
Subjective Date of Service: December 07, 2016. Subjective Pt evaluation today including: conversation w/ patient, conversation w/ family , physical exam, chart review, lab review pt oob to chair, eating well, tolerating abx. denies pain, no sob, no fevers. family at bedside, asking what stage cancer pt has and what plans for chemo will be. upset that I am unable to give her treatment options regarding lung ca. explained + blood cultures with MRSA, likely secondary to previous lung infection. repeat cultures negative, remains on vanco. all remaining ros reviewed and are negative. chest tube remains in place. ct chest 12/06 with effusions no empyema12/03 cultures ngtd Objective Vital Signs Date Time Temp Pulse Resp B/P Pulse Ox O2 Delivery O2 Flow Rate FiO2 12/07/16 07:48 36.6 86 20 125/77 95 12/07/16 07:10 77 14 95 Room Air 12/07/16 04:00 36.6 89 20 130/79 96 Room Air 12/07/16 00:00 Room Air 12/06/16 22:57 36.8 81 20 119/70 97 Room Air 12/06/16 19:28 84 16 95 Room Air 12/06/16 19:17 36.8 93 18 84/54 95 Room Air 12/06/16 16:00 Room Air 12/06/16 15:15 36.7 86 18 92/61 96 Room Air 12/06/16 11:21 36.2 95 20 93/59 100 Room Air Physical Exam General Appearance: WD/WN, no apparent distress Eyes: normal inspection, EOMI Neck: supple Respiratory/Chest: + decreased breath sounds Cardiovascular: regular rate, rhythm, no edema Abdomen: soft Extremities: no pedal edema Neurologic/Psychiatric: alert, oriented x 3 Skin: normal color Laboratory Results Item Value Date Time Blood Culture - Final Complete 12/02/16 1435 Blood Staphylococcus Aureus Blood Culture - Preliminary Resulted 12/02/16 1446 Blood Staphylococcus Aureus Gram Stain - Final Resulted 12/02/16 1630 Pleural Fluid (Thoracentesis) Left Blood Culture - Preliminary Resulted 12/03/16 1210 Blood NO GROWTH TO DATE. Blood Culture - Preliminary Resulted 12/03/16 1217 Blood NO GROWTH TO DATE. Assessment and Plan (1) Staphylococcus aureus septicemia Assessment & Plan: continue vanco, will need min 21 days. would suggest echo r/ o veg. maintain vanco trough 15-20. will need weekly labs - cbc, chem 12 and vanco trough while on therapy. family concerned with alf goals. (2) Empyema lung (3) Leukocytosis
[2016-12-07] MEDS ORDERED: PERFLUTREN LIPID MICROSPHERE (DEFINITY) IV ONE (11:41)
--- NOTE | 2016-12-07 13:39 | ECHOCARDIOGRAM REPORT ---
*NOTICE TO RECEIVING [employer] This information is strictly Confidential and protected under [place] law. [place] law prohibits you from making any further disclosure of this information unless further disclosure is expressly permitted by the written consent of the person to whom it pertains or is authorized by law. A general authorization for the release of medical or other information is not sufficient for this purpose. Hospital accepts no responsibility if the information is made available to any other person, INCLUDING THE PATIENT. Interpretation Summary * Name: LAVELL WEEMS Study Date: 12/07/2016 11:00 AM BP: 125/77 mmHg * Patient Location: .4E\S\E403\S\1 HR: 82 * : 1930 (M/d/yyyy) Gender: Female Height: 65 in * Age: 86 yrs Ethnicity: [place] Weight: 114 lb * Ordering Physician: Alice Naranjo. * Referring Physician: Huang Coates * Performed By: Yuli Bowens [facility] * * Reason For Study: Eval for Endocarditis * BSA: 1.6 m2 * -- Conclusions -- * Technically Difficult study despite use of Definity contrast. * 1. Grossly normal LV size and function. LVEF 55-60%. * Regional wall motion abnormalities cannot be excluded due to limited visualization. * 2. RV not well visualized. RV function grossly normal. * 3. No significant valvular stenotic or regurgitant lesions. * 4. Limited visualization, but no clear evidence of endocarditis. * 5. Grade I diastolic dysfunction. * 6. No prior studies for comparison. Procedure Details * A complete two-dimensional transthoracic echocardiogram was performed (2D, M-mode, Doppler and color flow Doppler). * A contrast injection of Definity was performed to improve assessment of LV function. * Contrast was injected into an intravenous site in the right arm. * One vial of Definity ultrasound contrast was diluted in normal saline to a total volume of 10 ml. A total of '2' ml of solution was administered during imaging. * Lot # [id number] of Definity utilized for procedure. * Expiration date 1APR18. * The attending nurse who injected the contrast agent was Genia Galvan RN. Left Ventricle * The left ventricle is grossly normal size. * There is normal left ventricular wall thickness. * The basal septum is thickened and angulated consistent with sigmoid septum. * The left ventricular ejection fraction is grossly normal. * Ejection Fraction = 55-60%. * Regional wall motion abnormalities cannot be excluded due to limited visualization. Right Ventricle * The right ventricle is not well visualized. * The right ventricular systolic function is normal as assessed by tricuspid annular plane systolic excursion (TAPSE) (normal >1.5 cm). Atria * The left atrial size is normal. * Right atrium not well visualized. * There is no evidence of atrial septal defect, but resolution does not allow assessment for a patent foramen ovale. Mitral Valve * The mitral valve is grossly normal. * Mitral stenosis is absent. * Significant mitral regurgitation is absent. Tricuspid Valve * The tricuspid valve is not well visualized, but is grossly normal. * There is no tricuspid stenosis. * Significant tricuspid regurgitation is absent. Aortic Valve * The aortic valve is normal in structure and function. * No hemodynamically significant valvular aortic stenosis. * There is no significant aortic regurgitation. Pulmonic Valve * The pulmonary valve is inadequately visualized, but the Doppler data is adequate for interpretation. * Pulmonic stenosis is absent. * There is no pulmonic valvular regurgitation. Great Vessels * The aortic root and proximal ascending aorta are normal sized. Pericardium/Pleural * There is no pericardial effusion. Left Ventricular Diastolic Function * Grade I diastolic dysfunction, (abnormal relaxation pattern). MMode 2D Measurements and Calculations IVSd 1.0 cm IVSs 1.2 cm LVIDd 3.9 cm LVIDs 2.8 cm LVPWd 1.0 cm LVPWs 1.2 cm IVS/LVPW 0.98 FS 29.1 % EDV(Teich) 67.2 ml ESV(Teich) 29.2 ml EF(Teich) 56.5 % EDV(cubed) 60.8 ml ESV(cubed) 21.7 ml EF(cubed) 64.4 % % IVS thick 23.4 % % LVPW thick 12.3 % LV mass(C)d 127.3 grams LV mass(C)dI 81.7 grams/m\S\2 LV mass(C)s 99.0 grams LV mass(C)sI 63.5 grams/m\S\2 CO(Teich) 3.1 l/min CI(Teich) 2.0 l/min/m\S\2 SV(Teich) 38.0 ml SI(Teich) 24.4 ml/m\S\2 CO(cubed) 3.2 l/min CI(cubed) 2.1 l/min/m\S\2 SV(cubed) 39.1 ml SI(cubed) 25.1 ml/m\S\2 Ao root diam 3.5 cm Ao root area 9.9 cm\S\2 ACS 2.0 cm LA dimension 2.8 cm LA/Ao 0.78 LVAd ap4 27.3 cm\S\2 LVLd ap4 6.7 cm EDV(MOD-sp4) 89.0 ml LVAs ap4 16.9 cm\S\2 LVLs ap4 6.0 cm ESV(MOD-sp4) 41.0 ml EF(MOD-sp4) 53.9 % LVAd ap2 26.2 cm\S\2 LVLd ap2 6.6 cm EDV(MOD-sp2) 85.0 ml LVAs ap2 15.4 cm\S\2 LVLs ap2 5.3 cm ESV(MOD-sp2) 38.0 ml EF(MOD-sp2) 55.3 % CO(MOD-sp4) 3.9 l/min CI(MOD-sp4) 2.5 l/min/m\S\2 SV(MOD-sp4) 48.0 ml SI(MOD-sp4) 30.8 ml/m\S\2 CO(MOD-sp2) 3.9 l/min CI(MOD-sp2) 2.5 l/min/m\S\2 SV(MOD-sp2) 47.0 ml SI(MOD-sp2) 30.2 ml/m\S\2 Doppler Measurements and Calculations MV E max ana 65.6 cm/sec MV A max ana 73.5 cm/sec MV E/A 0.89 MV P1/2t max ana 69.9 cm/sec MV P1/2t 80.9 msec MVA(P1/2t) 2.7 cm\S\2 MV dec slope 253.1 cm/sec\S\2 MV dec time 0.30 sec Ao V2 max 75.1 cm/sec Ao max PG 2.3 mmHg Ao max PG (full) 0.78 mmHg LV V1 max PG 1.5 mmHg LV V1 max 60.7 cm/sec PA V2 max 71.0 cm/sec PA max PG 2.0 mmHg
[2016-12-07] MEDS: SODIUM CHLORIDE 0.9% 1000ML 1,000 ML IV SCH (13:41)
--- NOTE | 2016-12-07 16:22 | SURGERY PROGRESS NOTE ---
DATE: 12/07/2016 Ms. Sanchez is seen today. She looks great. She is sitting up and eating breakfast. She states that she is "getting better every day". She has been afebrile with stable vital signs. Saturations are 95-97% on room air. She did grow out methicillin-resistant Staph aureus in her blood cultures from 5 days ago; however, her blood cultures from 4 days ago were negative for growth. Her white count 2 days ago was only 6610 and she has not spiked a fever. We did drain 400 mL yesterday and 250 mL today from her PleurX. I did do a CT scan yesterday while she does have a small amount of pleural fluid left in the base and some of this is also consolidation and it is very small. I do not think that her chest is the source of her bacteremia. We will leave the catheter in until the drainage decreases. Dr Coates DICTATION ENDS HERE. [place]
[2016-12-08] VITALS (10 sets, daily range): BP systolic 98–116; BP diastolic 62–73; PULSE 79–87; TEMP 36.2–36.9; O2SAT 94–96; BMI 22.9
[2016-12-08] MEDS: SODIUM CHLORIDE 0.9% 1000ML 1,000 ML IV SCH ×2 (02:12→16:37)
[2016-12-08] MEDS ORDERED: VANCOMYCIN TROUGH ONE (03:30)
[2016-12-08 03:47] LABS: HEMATOCRIT 35.6 % (37-47); MEAN CELL VOLUME 88.6 fL (80-100); MEAN CORPUSCULAR HEMOGLOBIN 28.4 pg (25-34); MEAN PLATELET VOLUME 8.9 fL (7.4-10.4); PLATELET COUNT 278 K/uL (130-400); RED BLOOD COUNT 4.02 M/uL (4.2-5.4); WHITE BLOOD COUNT 5.47 K/uL (4.8-10.8)
[2016-12-08 04:04] LABS: CREATININE 0.59 mg/dl (0.60-1.20)
[2016-12-08] MEDS: VANCOMYCIN INJ 900 MG in SODIUM CHLORIDE 0.9% 250ML 250 ML IV SCH (04:15)
[2016-12-08] MEDS: BUDESONIDE 0.5 MG/2 ML VIAL (PULMICORT) INH SCH ×2 (06:55→19:26)
[2016-12-08] MEDS: CITALOPRAM 20 MG TAB PO SCH (08:46)
[2016-12-08] MEDS: DOCUSATE SODIUM 100 MG CAP PO SCH ×2 (08:46→20:08)
[2016-12-08] MEDS: HEPARIN SOD 5000 UNIT/0.5 ML CARP SQ SCH ×2 (08:49→20:10)
--- NOTE | 2016-12-08 09:31 | Pharmacy Progress Note ---
Pharmacy Antibiotic Prog Note Date of Service December 08, 2016. Subjective The patient is currently receiving vancomycin 900 mg iv q 12 hrs for MRSA bacteremia infection The patient is currently on day # 7 of IV therapy. Objective Height (Feet): 5 Height (Inches): 0.00 Weight (Kilograms): 53.300 Lab Results (24hrs): Test 12/08/16 03:30 White Blood Count 5.47 K/uL (4.8-10.8) Red Blood Count 4.02 M/uL (4.2-5.4) Hemoglobin 11.4 g/dL (12.0-16.0) Hematocrit 35.6 % (37-47) Mean Corpuscular Volume 88.6 fL (80-100) Mean Corpuscular Hemoglobin 28.4 pg (25-34) Mean Corpuscular Hemoglobin Concent 32.0 g/dl (32-36) RDW Standard Deviation 45.4 fL (36.4-46.3) RDW Coefficient of Variation 14.0 % (11.5-14.5) Platelet Count 278 K/uL (130-400) Mean Platelet Volume 8.9 fL (7.4-10.4) Creatinine 0.59 mg/dl (0.60-1.20) Est Creatinine Clear Calc Drug Dose 5.4 ml/min Estimated GFR () 96.2 Estimated GFR (Non- 83.0 Vancomycin Level Trough 12.9 mcg/ml (SEE COMMENT) Assessment & Plan Patient is currently on vancomycin for MRSA bacteremia, likely secondary to previous lung infection. ID is following the patient. Vancomycin: * Trough level this am was slightly subtherapeutic at ~13 mcg/ml (goal 15-20 mcg /ml for MRSA infection) * Will lincrease the dose to 1200 mg iv q 12 hrs to ensure trough is within goal * Scr remains stable today at ~0.6 mg/dL * Will plan to recheck trough prior to the 0400 dose on 12/10 to ensure therapeutic * Per ID note, patient to receive minimum of 21 days of abx Pharmacy will continue to follow and will adjust dose/frequency as necessary. Thank you
--- NOTE | 2016-12-08 14:31 | Progress Note ---
Subjective Date of Service: December 08, 2016. Subjective Pt echo negative for veg but limited. afebrile overnight. tolerating vanco. repeat blood cultures from 12/03 negative to date. no overnight events. Objective Vital Signs Date Time Temp Pulse Resp B/P Pulse Ox O2 Delivery O2 Flow Rate FiO2 12/08/16 11:21 36.2 85 20 108/71 95 12/08/16 08:30 96 Room Air 12/08/16 07:29 36.5 81 20 112/72 96 12/08/16 06:55 84 16 96 Room Air 12/08/16 04:07 36.7 87 16 106/73 94 Room Air 12/08/16 00:14 94 Room Air 12/07/16 23:04 36.7 74 16 123/75 95 Room Air 12/07/16 20:05 36.6 85 16 119/72 92 Room Air 12/07/16 19:10 83 14 96 Room Air 12/07/16 16:00 94 Room Air 12/07/16 15:35 36.8 87 18 109/70 94 Room Air Laboratory Results Item Value Date Time Blood Culture - Final Complete 12/02/16 1435 Blood Staphylococcus Aureus Blood Culture - Final Complete 12/02/16 1446 Blood Staphylococcus Aureus Blood Culture - Preliminary Resulted 12/03/16 1210 Blood NO GROWTH TO DATE. Blood Culture - Preliminary Resulted 12/03/16 1217 Blood NO GROWTH TO DATE. Last 24 Hours Test 12/08/16 03:30 White Blood Count 5.47 K/uL Red Blood Count 4.02 M/uL Hemoglobin 11.4 g/dL Hematocrit 35.6 % Mean Corpuscular Volume 88.6 fL Mean Corpuscular Hemoglobin 28.4 pg Mean Corpuscular Hemoglobin Concent 32.0 g/dl RDW Standard Deviation 45.4 fL RDW Coefficient of Variation 14.0 % Platelet Count 278 K/uL Mean Platelet Volume 8.9 fL Creatinine 0.59 mg/dl Est Creatinine Clear Calc Drug Dose 5.4 ml/min Estimated GFR () 96.2 Estimated GFR (Non- 83.0 Vancomycin Level Trough 12.9 mcg/ml Assessment and Plan (1) Staphylococcus aureus septicemia Assessment & Plan: continue vanco, will need min 21 days from first negative blood culture, tentative stop date 12/24. echo negative for veg. maintain vanco trough 15-20. will need weekly labs - cbc, chem 12 and vanco trough while on therapy. family concerned with long term care pharmacist goals.No new ID recs at this time, ok for d/c on IV vanco at current dose when otherwise stable for d/c. (2) Empyema lung (3) Leukocytosis
[2016-12-08] MEDS: VANCOMYCIN INJ 1,200 MG in SODIUM CHLORIDE 0.9% 250ML 250 ML IV SCH (16:37)
--- NOTE | 2016-12-08 21:38 | SURGERY PROGRESS NOTE ---
DATE: 12/08/2016 SUBJECTIVE: Ms. Sanchez was seen today on 12/08/2016. She looks great. Afebrile. She is on room air. She is draining between 215-400 mL of the serous fluid. This is not infected. We are going to have a PICC line inserted in Ms. Sanchez and give her antibiotics for her methicillin-resistant staph aureus bacteremia, per the recommendations of infectious disease. WINTER
[2016-12-09] VITALS (8 sets, daily range): BP systolic 97–148; BP diastolic 60–81; PULSE 72–88; TEMP 36.5–37.2; O2SAT 94–96; BMI 20.9
[2016-12-09] MEDS: OXYCODONE/ACETAMINOPHEN 5-325 TAB PO PRN (01:47)
[2016-12-09] MEDS: VANCOMYCIN INJ 1,200 MG in SODIUM CHLORIDE 0.9% 250ML 250 ML IV SCH ×2 (04:17→16:04)
[2016-12-09] MEDS: SODIUM CHLORIDE 0.9% 1000ML 1,000 ML IV SCH ×2 (04:47→18:03)
[2016-12-09] MEDS: BUDESONIDE 0.5 MG/2 ML VIAL (PULMICORT) INH SCH ×2 (07:14→19:55)
[2016-12-09] MEDS: CITALOPRAM 20 MG TAB PO SCH (07:54)
[2016-12-09] MEDS: HEPARIN SOD 5000 UNIT/0.5 ML CARP SQ SCH ×2 (07:58→20:54)
[2016-12-09] MEDS: DOCUSATE SODIUM 100 MG CAP PO SCH ×2 (08:35→20:45)
--- NOTE | 2016-12-09 16:47 | SURGERY PROGRESS NOTE ---
DATE: 12/09/2016 SUBJECTIVE: Ms. Sanchez looks quite good today. She is afebrile. Saturations are 96% on room air. Her PleurX catheter drained about 200 mL this morning. We are going to check a chest x-ray in the morning. She certainly sounds good. Her PleurX site is clean. ASSESSMENT AND PLAN: 1. Methicillin-resistant Staphylococcus aureus septicemia, probably from an infected PleurX catheter; however, I do not believe she had an empyema. 2. 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 PLAN: Continue to drain the PleurX catheter. Will have a PICC line placed for antibiotics. I think she should be able to be discharged on parenteral antibiotics when infectious disease feels that she is stable.
[2016-12-10] VITALS (8 sets, daily range): BP systolic 115–146; BP diastolic 68–83; PULSE 73–91; TEMP 36.7–36.9; O2SAT 92–95; BMI 20.9
[2016-12-10] MEDS ORDERED: VANCOMYCIN TROUGH ONE (03:30)
[2016-12-10] MEDS: VANCOMYCIN INJ 1,200 MG in SODIUM CHLORIDE 0.9% 250ML 250 ML IV SCH ×2 (04:24→15:58)
[2016-12-10] MEDS: BUDESONIDE 0.5 MG/2 ML VIAL (PULMICORT) INH SCH ×2 (07:23→19:12)
[2016-12-10] MEDS: SODIUM CHLORIDE 0.9% 1000ML 1,000 ML IV SCH ×2 (07:52→22:14)
[2016-12-10] MEDS: DOCUSATE SODIUM 100 MG CAP PO SCH ×2 (07:59→20:45)
[2016-12-10] MEDS: CITALOPRAM 20 MG TAB PO SCH (08:00)
[2016-12-10] MEDS: HEPARIN SOD 5000 UNIT/0.5 ML CARP SQ SCH ×2 (08:06→20:45)
--- NOTE | 2016-12-10 08:54 | DIAGNOSTIC IMAGING REPORT ---
CHEST 2 VIEWS ROUTINE CLINICAL HISTORY: pleural effusion COMPARISON STUDY: 12/05/2016, chest CT dated 12/06/2016 FINDINGS: There is been interval placement of a right-sided PICC catheter. The tip projects over the superior vena cava. The left sided chest tube remains unchanged in position. There are small bilateral pleural effusions. There are persistent left basilar airspace opacities. There is a vague left perihilar opacity, likely representing fluid within the fissure.[ IMPRESSION: 1. Interval insertion of a right-sided PICC catheter 2. Persistent small bilateral pleural effusions. 3. No change in the position of the left-sided chest tube. 4. Stable left basal airspace opacities Electronically signed by: Manjit Ogden M.D. 12/10/2016 8:52 AM Dictated Date/Time: 12/10/2016 8:50 AM
--- NOTE | 2016-12-10 10:52 | Pharmacy Progress Note ---
Pharmacy Abx Dose Progress Nt Date of Service December 10, 2016. Pharmacy Dosing Scope The patient is currently receiving the following antimicrobial agents per Pharmacy consult: Vancomycin 1200 mg IV every 12 hours Objective Height (Feet): 5 Height (Inches): 3.00 Weight (Kilograms): 53.500 Vital Signs (Past 12Hrs) Vital Signs Past 12 Hours Date Time Temp Pulse Resp B/P Pulse Ox O2 Delivery O2 Flow Rate FiO2 12/10/16 08:00 Room Air 12/10/16 07:24 78 16 93 Room Air 12/10/16 07:20 36.8 79 16 115/69 94 Room Air 12/10/16 03:23 36.7 91 18 146/83 92 Room Air 12/10/16 00:00 Room Air 12/09/16 23:19 36.9 88 20 148/74 94 Room Air Lab Results (24Hrs) Test 12/10/16 03:23 Vancomycin Level Trough 15.8 mcg/ml (SEE COMMENT) Micro Results Date/Time Source Procedure Growth Status 12/03/16 12:17 Blood Blood Culture - Final NO GROWTH Complete 12/03/16 12:10 Blood Blood Culture - Final NO GROWTH Complete 12/02/16 14:46 Blood Blood Culture - Final Staphylococcus Aureus Complete 12/02/16 14:35 Blood Blood Culture - Final Staphylococcus Aureus Complete 12/02/16 18:00 Nasal MRSA DNA Surveillance Screen - Final Specimen Positive for MRSA by DNA Probe Complete 12/04/16 03:15 Sputum Expectorated Sputum Gram Stain - Final Complete 12/04/16 03:15 Sputum Expectorated Sputum Sputum Culture - Final LIGHT NORMAL HERMANN. Complete 12/02/16 22:00 Urine , Clean Catch Urine Culture - Final NO GROWTH - LESS THAN 1,000 COLONIES/ML Complete 12/02/16 16:30 Pleural Fluid (Thoracentesis) Left Fungal Smear - Final Resulted 12/02/16 16:30 Pleural Fluid (Thoracentesis) Left Fungal Culture - Preliminary NO YEAST OR FUNGUS ISOLATED - REPORT ... Resulted 12/02/16 16:30 Pleural Fluid (Thoracentesis) Left Acid Fast Stain - Final Resulted 12/02/16 16:30 Pleural Fluid (Thoracentesis) Left Mycobacterial Culture - Preliminary NO ACID-FAST BACILLI ISOLATED - REPOR... Resulted 12/02/16 16:30 Pleural Fluid (Thoracentesis) Left Gram Stain - Final Complete 12/02/16 16:30 Pleural Fluid (Thoracentesis) Left Bacterial Culture - Final NO GROWTH Complete Assessment & Plan Assessment 86 year old female receiving vancomycin for treatment of MRSA empyema s/p PleurX catheter placement. Day # 9 of antimicrobial therapy - per ID, will need minimum of 21 days from 1st negative blood culture (on 12/03) Plan Vancomycin IV * Trough level of 15.8 mcg/mL is therapeutic * Continue dose of vancomycin 1200 mg IV every 12 hours * Goal trough level for MRSA empyema : 15 to 20 mcg/mL * Trough level ordered for: 12/13/16 prior to the 0400 dose to assess for any accumulation Pharmacy will continue to follow and will adjust dose/frequency as necessary. Thank you.
--- NOTE | 2016-12-10 14:10 | SURGERY PROGRESS NOTE ---
DATE: 12/10/2016 DATE: 12/10/2016. Ms. Sanchez now has her PICC line in the right upper extremity. She has been eating well. She has been ambulating. I was pretty happy with her x-ray today. Small bilateral effusions. Her PleurX catheter this morning was drained for about 150 mL and this has been coming down. ASSESSMENT AND PLAN: Malignant left pleural effusion. Her PleurX site is clean. I think she is stable for discharge from our standpoint. We are going to get her set up for transfer back to the extended care facility. I will see her back in a couple weeks to remove her PICC line in the office and to check an x-ray. We will also keep up with the drainage from her PleurX catheter.
[2016-12-11] MEDS: VANCOMYCIN INJ 1,200 MG in SODIUM CHLORIDE 0.9% 250ML 250 ML IV SCH (03:46)
[2016-12-11 04:17] VITALS: BP 131/77; PULSE 86; TEMP 36.8; O2SAT 96
[2016-12-11 06:18] LABS: HEMATOCRIT 36.2 % (37-47); MEAN CELL VOLUME 88.3 fL (80-100); MEAN CORPUSCULAR HEMOGLOBIN 27.3 pg (25-34); MEAN CORPUSCULAR HGB CONC 30.9 g/dl (32-36); MEAN PLATELET VOLUME 8.7 fL (7.4-10.4); PLATELET COUNT 256 K/uL (130-400); WHITE BLOOD COUNT 4.92 K/uL (4.8-10.8)
[2016-12-11 06:26] VITALS: Ht 160 cm; Wt 52.4 kg
[2016-12-11 07:04] LABS: CREATININE 0.31 mg/dl (0.60-1.20)
[2016-12-11 07:31] VITALS: BP 107/65; PULSE 77; PULSE 79; TEMP 36.9; O2SAT 94; O2SAT 95
[2016-12-11] MEDS: BUDESONIDE 0.5 MG/2 ML VIAL (PULMICORT) INH SCH (07:31)
[2016-12-11] MEDS ORDERED: CLC100 PO (07:35)
--- NOTE | 2016-12-11 07:38 | Discharge Instructions ---
Discharge Instructions Date of Service December 11, 2016. Admission Reason for Admission: Left Empyema, Lung Cancer Discharge Discharge Diagnosis / Problem: Left Empyema, Lung Cancer Discharge Goals Goal(s): Learn about illness Activity Recommendations Activity Level: Up Ad Chelsie, Assistance Required Therapies: Physical Therapy, Weight Bearing Status (as tolerated), Occupational Therapy Lifting Limitations: none . Additional Information Patient informed of condition: Yes Advance Directives: No DNR: No Level of Care: Skilled Communicable Disease: No Prognosis: Stable Oxygen at (LPM): N/A Simon Catheter: No Instructions / Follow-Up Instructions / Follow-Up 1. Appointment with Dr. Coates in 1-2 weeks. You will need a chest x-ray prior to appointment. Office will call with date and time of appointment. 2. Appointment with Dr. Alice Naranjo of [facility] infectious Disease--call office for appointment Current Hospital Diet Patient's current hospital diet: Regular Diet Discharge Diet Recommended Diet: Regular Diet Pending Studies Studies pending at discharge: no Physician Orders On Transfer Dressing Changes: Change dressing over Pleurex catheter joleen 3 days. Use materials in pleurex drainage kit to do so. IV Therapy: Flush PICC line daily and as needed. Additional Orders: 1. Please obtain the following labs each Wednesday: Vancomycin trough, CBC, CMP-- send results to Dr. Asif Coates and Alice Naranjo 2. Please drain pleurex catheter daily and record amounts. Call Dr. Coates' s office with drainage amounts every . Medical Emergencies . Who to Call and When: Medical Emergencies: If at any time you feel your situation is an emergency, please call 911 immediately. . Non-Emergent Contact Non-Emergency issues call your: Primary Care Provider, Surgeon Call Non-Emergent contact if: temperature is above 101.5, your pain is not controlled . . "Provider Documentation" section prepared by Corey Lisa. . Core Measure Problem Core Measures: None
[2016-12-11] MEDS ORDERED: vancomycin IV. (07:41)
[2016-12-11] MEDS: CITALOPRAM 20 MG TAB PO SCH (07:48)
[2016-12-11] MEDS: DOCUSATE SODIUM 100 MG CAP PO SCH (07:48)
[2016-12-11] MEDS ORDERED: ACET325T96 PO (08:03)
[2016-12-11] MEDS ORDERED: CLX20 PO (08:03)
[2016-12-11] MEDS: HEPARIN SOD 5000 UNIT/0.5 ML CARP SQ SCH (08:20)
[2016-12-11 08:30] VITALS: O2SAT 95
[2016-12-11 09:20] VITALS: BP 107/65; PULSE 77; TEMP 36.9; O2SAT 95
--- NOTE | 2016-12-11 23:49 | DISCHARGE SUMMARY ---
DISCHARGE DIAGNOSES: 1. Methicillin-resistant Staphylococcus aureus septicemia. 2. Infected left PleurX catheter. 3. Malignant left pleural effusion. 4. Metastatic lung carcinoma. HOSPITAL COURSE: This is a very nice 86-year-old that had a PleurX catheter placed for a malignant pleural effusion down at [facility]. The patient presented to me because there was purulence coming from this tube. I looked at it and I was actually quite concerned when I saw her in the office and I admitted her directly to the hospital. I am concerned enough about her that I would admit her and put her on IV antibiotics and we instituted the MIST-2 protocol; however, she did not respond well to this. Looking at her films, I was concerned about the amount of fluid in her chest, so I placed another PleurX catheter, removed the one that she had come in with, that we were concerned about. This drained her fluid nicely. She has a loculated effusion, and using the MIST-2 protocol, this broke up nicely. She grew out methicillin-resistant Staph aureus in 2 sets of blood cultures; however, she was afebrile with a normal white count, and through the course of her hospitalization, really looked quite good. She was quite concerning upon her first admission, she was quite confused and appeared to be very weak. She improved tremendously and was eating well, ambulating with assistance, and had no complaints and was awake and alert. Finally on 12/11/2016, on postoperative day #9, we transferred her back to her extended care facility. Infectious disease saw her and Dr. Alice Naranjo set her up to get vancomycin which she had been on for her methicillin-resistant Staph aureus septicemia. We did culture the pleural fluid from our new tube, it did not grow any organisms, and it did not appear to me that we were dealing with an empyema. At any rate, she looked quite good and was discharged to home. We will see her back in the office in 2 weeks with an x-ray. It should be noted that her chest tube is being drained on a daily basis by the home care nurses. She has an indwelling pleural catheter on the left and the site looks quite good. The site of her old PleurX catheter has healed up nicely.
[2016-12-13] MEDS ORDERED: VANCOMYCIN TROUGH ONE (03:30)
[2016-12-23] MEDS ORDERED: CALCTAB7 PO (12:07)
[2016-12-23] MEDS ORDERED: WARF1TAB PO (12:07)
[2016-12-23] MEDS ORDERED: RQP25 PO (12:07)
[2016-12-23] MEDS ORDERED: MCRK20 PO (12:07)
== END 2016-12-11 13:15 | DRG 919 ==
LOC: C.4E 13:31
PROVIDERS: ADMIT Surgery; ATTEND Surgery
PROC: 0W9B30Z Drainage of Left Pleural Cavity with Drainage Device, Percutaneous Approach (ICD-10-PCS; principal; 2016-12-02)
PROC: 3E0L3TZ Introduction of Destructive Agent into Pleural Cavity, Percutaneous Approach (ICD-10-PCS; 2016-12-04)
PROC: 0BPQX0Z Removal of Drainage Device from Pleura, External Approach (ICD-10-PCS; 2016-12-05)
PROC: 3E0L3GC Introduction of Other Therapeutic Substance into Pleural Cavity, Percutaneous Approach (ICD-10-PCS; 2016-12-05)
PROC: 3E0L3TZ Introduction of Destructive Agent into Pleural Cavity, Percutaneous Approach (ICD-10-PCS; 2016-12-05)
DX: T85.79XA Infection and inflammatory reaction due to other internal prosthetic devices, implants and grafts, initial encounter (principal); A41.01 Sepsis due to Methicillin susceptible Staphylococcus aureus; J91.0 Malignant pleural effusion; C34.90 Malignant neoplasm of unspecified part of unspecified bronchus or lung; Z79.899 Other long term (current) drug therapy; Y83.1 Surgical operation with implant of artificial internal device as the cause of abnormal reaction of the patient, or of later complication, without mention of misadventure at the time of the procedure

== ENCOUNTER 2016-12-16 15:06 | Inpatient (IN) | payer OTHER ==
[~2016-12-16] VITALS: Ht 167.6 cm; Wt 52.9 kg
[~2016-12-16 15:06] MED LIST changes: +ACET325T96 PO; +CLC100 PO; +CLX20 PO; +vancomycin IV.
[2016-12-16 15:53] LABS: BASO % 0.1 %; BASO ABS # 0.01 K/uL (0-0.2); COMPLETE YES; EOS % 6.3 %; HEMATOCRIT 30.9 % (37-47); IG% 0.6 %; LYMPH % 10.8 %; LYMPH ABS # 0.75 K/uL (1.2-3.4); MEAN CORPUSCULAR HEMOGLOBIN 28.7 pg (25-34); MEAN PLATELET VOLUME 9.3 fL (7.4-10.4); MONO % 11.1 %; NEUT % 71.1 %; PLATELET COUNT 183 K/uL (130-400); RED BLOOD COUNT 3.55 M/uL (4.2-5.4); WHITE BLOOD COUNT 6.96 K/uL (4.8-10.8)
[2016-12-16 16:04] LABS: URINE APPEARANCE CLOUDY (CLEAR); URINE BILIRUBIN NEG (NEG); URINE COLOR YELLOW; URINE EPITHELIAL CELL AUTO >30 /lpf (0-5); URINE NITRITE NEG (NEG); URINE PH 5.5 (4.5-7.5); URINE SPECIFIC GRAVITY 1.024 (1.000-1.030); UROBILINOGEN NEG (NEG); ZZUR CULT IF INDIC CLEAN CATCH YES
[2016-12-16 16:12] LABS: ALT/SGPT 20 U/L (12-78); AST/SGOT 18 U/L (15-37); BLOOD UREA NITROGEN 32 mg/dl (7-18); BUN/CREATININE RATIO 14.6 (10-20); CALCIUM 7.7 mg/dl (8.5-10.1); CARBON DIOXIDE 24 mmol/L (21-32); CHLORIDE 111 mmol/L (98-107); GLUCOSE 95 mg/dl (70-99); POTASSIUM 3.3 mmol/L (3.5-5.1); SODIUM 142 mmol/L (136-145)
[2016-12-16 16:13] LABS: MANUAL MICROSCOPIC REQUIRED? NO; REVIEW REQ? YES
[2016-12-16 16:15] LABS: ALKALINE PHOSPHATASE 69 U/L (45-117)
[2016-12-16 16:32] LABS: URINE PATH CASTS 1-5 GRANULAR CASTS /lpf (0)
[2016-12-16] MEDS ORDERED: SODIUM CHLORIDE 0.9% 1000ML 1,000 ML IV STA (16:47)
[2016-12-16] MEDS ORDERED: SODIUM CHLORIDE 0.9% 500ML 500 ML IV STA (16:47)
--- NOTE | 2016-12-16 17:54 | DIAGNOSTIC IMAGING REPORT ---
CT SCAN OF THE ABDOMEN AND PELVIS WITHOUT IV CONTRAST CLINICAL HISTORY: Acute renal insufficiency. COMPARISON STUDY: Abdominal CT from [facility] dated 11/04/2016. TECHNIQUE: CT scan of the abdomen and pelvis is performed from the lung bases to the proximal femora. Images are reviewed in the axial, sagittal, and coronal planes. IV contrast was not administered for this examination. The Examination is suboptimal without IV contrast. The examination is significantly degraded by streak artifact from spinal rods. The Examination is also significantly degraded by motion artifact. Automated dose control exposure was utilized. CT DOSE: 261.94 mGy.cm FINDINGS: Lung bases: The heart is enlarged and there is trace pericardial effusion. A chest tube terminates at the anterior left lung base from a posterior approach. There are small pleural effusions, right larger than left with associated bibasilar consolidation. Loculated fluid is noted along the left major fissure. A spiculated lesion in the left upper lobe is partially imaged on image #1. This measures up to 2.3 cm. Liver: The unenhanced liver is normal in size, contour, and attenuation. A parenchymal defect is again seen in the posterior right lobe of liver in segment VII on image #55. There is no intrahepatic biliary ductal dilatation. Gallbladder: Contracted versus surgically absent. Spleen: Normal in size and attenuation. Pancreas: The unenhanced pancreas is moderately atrophic and grossly unremarkable. Adrenal glands: Unremarkable. Kidneys: The unenhanced kidneys demonstrate cortical atrophy and are without hydronephrosis. A punctate nonobstructing calculus is present in the right upper pole. Bilateral parapelvic cysts are observed. Exophytic cysts arising from the left kidney measure up to 2 cm. Abdominal vasculature: The abdominal aorta is normal in course and caliber noting mild to moderate atherosclerotic calcification. Bowel: The small bowel and colon are normal in course and caliber. The appendix is not clearly identified. Peritoneum: There is no intraperitoneal free air or abdominal ascites. Lymphadenopathy: None. Pelvic viscera: Evaluation of the pelvis is severely degraded by streak artifact from a left hip arthroplasty. The bladder is grossly unremarkable but not well visualized. Calcified uterine fibroids are suspected. There is no adnexal lesion clearly seen. A fat-containing inguinal hernia is seen on the right. Skeletal structures: The skeletal structures are osteopenic. Advanced spondylotic change is observed. Spinal rods transfix the thoracolumbar spine. There is a chronic compression deformity of L2 with near complete bony fusion of L1 and L2. No lytic or blastic lesions are seen. There has likely been resection of the left posterior 11th and 12th ribs. A left hip arthroplasty is in place. IMPRESSION: 1. Severely degraded examination due to motion artifact and streak artifact. The examination is also suboptimal without IV contrast. 2. No acute infectious or inflammatory findings are identified in the abdomen or pelvis. 3. Nonobstructing right renal calculus. 4. Small pleural effusions, right larger than left with associated bibasilar consolidation. 5. A pleural drain is seen at the left lung base. 6. There is a parenchymal defect in the right lobe of the liver, possibly on a postsurgical basis. Clinical correlation required. 7. Cardiomegaly. 8. A spiculated pulmonary lesion is partially imaged in the left upper lobe. Correlation with the patient's oncologic history will be required. 9. Additional findings as above. Electronically signed by: Vincent Pitts M.D. 12/16/2016 5:52 PM Dictated Date/Time: 12/16/2016 5:43 PM
[2016-12-16] MEDS ORDERED: POTASSIUM CHLORIDE 10 MEQ TABCR PO STA (18:24)
[2016-12-16] MEDS ORDERED: ACETAMINOPHEN 325 MG TAB PO PRN (18:30)
[2016-12-16] MEDS: SODIUM CHLORIDE 0.9% 1000ML 1,000 ML IV SCH (18:30)
[2016-12-16] MEDS ORDERED: ONDANSETRON INJ 2 MG/ML 2 ML VIAL IV PRN (18:30)
--- NOTE | 2016-12-16 19:29 | History and Physical ---
History & Physical Date & Time of Service: December 16, 2016 at 18:40 Chief Complaint: Abnormal Labs Primary Care Physician: Kiko Perez M.D. History of Present Illness Source: patient, family, clinic records, hospital records This is an 86 year old female with PMH listed below who was sent to the ED from [facility] for abnormal labs. History not obtainable from patient due to baseline Alzheimer's dementia. Patient was recently admitted to [facility] under Dr. Coates's service for MRSA bacteremia, infected left PleurX catheter which was replaced, malignant left pleural effusion. She was seen by ID, had echo negative for vegetation, and was discharged on vancomycin via PICC line on . On patient's creat increased from 0.7 to 2.1. She was seen at SNF by Claudine Mejia PA-C. Vancomycin was held and patient was given 1 liter of IVF' s per his note, however remained in renal failure today with creat of 2.2. Patient's vancomycin trough was elevated to approximately 40 on 12/14 and today. Patient was noted to have decreased PO intake at SNF. Patient is unable to recall any recent events. She is oriented to person and place but disoriented to date. Family states her mentation is at baseline. Pt's sister Jessica and nephew Dajuan state patient was previously healthy before dx of lung cancer after presenting to PCP in September 2016 with cough and SOB. She was seen by PCP Dr. Darshan Hudson in [place] and was placed on abx. She then presented to [facility] where she had thoracentesis and PleurX catheter placed on the left for malignant pleural effusion. She was placed in SNF, then directly admitted by Dr. Coates for infected PleurX catheter. Family saw patient yesterday and their impression was she was doing well yesterday, up in chair, eating. Patient admits to fatigue and occasional nonproductive cough. No reported fever at SNF. Patient denies chills, dizziness, MATTHEWS, SOB, chest pain, abdominal pain, N/V, diarrhea, dysuria, frequency, urgency. Past Medical/Surgical History Medical Problems: (1) Adenocarcinoma of left lung Status: Chronic (2) S/p pleural catheter placement Status: Chronic Surgical Problems: (1) History of lumbar surgery Status: Chronic (2) History of total hip replacement Status: Chronic (3) S/P thoracentesis Status: Chronic Family History Noncontributory due to age. Social History Smoking Status: Never Smoker Alcohol Use: none Housing status: fdc Multi-Drug Resistant Organisms History of MDRO: Yes Type of MDRO: MRSA Allergies Coded Allergies: No Known Allergies (Unverified , 10/25/14) Home Medications Scheduled Aspirin (Aspirin), 325 MG PO BID Celecoxib (Celebrex), 1 CAP PO BID Citalopram (Citalopram Hydrobromide), 10 MG PO QAM Docusate Sodium (Docusate Sodium), 100 MG PO BID [vancomycin], 1,200 MG IV. Q12 Scheduled PRN Acetaminophen Tab (Tylenol), 650 MG PO Q6H PRN for Pain or Fever Review of Systems Constitutional: + fatigue, No chills, No fever, No weight loss (no weight loss as per family) Eyes: No worsening of vision ENT: No nasal symptoms, No sore throat Respiratory: + cough, No shortness of breath, No sputum Cardiovascular: No chest pain Abdomen: No diarrhea, No nausea, No pain, No vomiting Musculoskeletal: No joint pain, No muscle pain Genitourinary - Female: No dysuria, No urinary frequency, No urinary urgency Neurologic: + memory loss (chronic), No numbness/tingling, No problem reported (no dizziness), No weakness Integumentary: No new/changing skin lesions Physical Exam Vital Signs Date Time Temp Pulse Resp B/P Pulse Ox O2 Delivery O2 Flow Rate FiO2 12/16/16 15:15 82 12/16/16 15:10 36.5 80 20 125/63 97 Room Air General Appearance: no apparent distress, + thin, + pertinent finding ( pleasantly demented elderly female) Head: normocephalic, atraumatic Eyes: normal inspection, PERRL, EOMI ENT: pharynx normal, + pertinent finding (right ear hearing aid. slightly dry oral mucosa. ) Neck: supple, trachea midline Respiratory/Chest: lungs clear, no respiratory distress, + crackles ( crackles left base. pleural catheter in place draining clear fluid) Cardiovascular: regular rate, rhythm, no murmur Abdomen/GI: normal bowel sounds, non tender, soft Back: no CVA tenderness Extremities/Musculoskelatal: no calf tenderness, + pertinent finding (1+ pedal edema bilaterally. PICC line RUE. ) Neurologic/Psych: alert, normal mood/affect, + disoriented (oriented to person and place only. disoriented to year. ), + pertinent finding (moves all extremities strength 5/5) Skin: normal color, warm/dry, + pertinent finding (mild skin tenting) Diagnostics Laboratory Results Results Past 24 Hours Test 12/16/16 15:33 12/16/16 15:40 12/16/16 18:37 Range/Units White Blood Count 6.96 4.8-10.8 K/uL Red Blood Count 3.55 4.2-5.4 M/uL Hemoglobin 10.2 12.0-16.0 g/dL Hematocrit 30.9 37-47 % Mean Corpuscular Volume 87.0 80-100 fL Mean Corpuscular Hemoglobin 28.7 25-34 pg Mean Corpuscular Hemoglobin Concent 33.0 32-36 g/dl Platelet Count 183 130-400 K/uL Mean Platelet Volume 9.3 7.4-10.4 fL Neutrophils (%) (Auto) 71.1 % Lymphocytes (%) (Auto) 10.8 % Monocytes (%) (Auto) 11.1 % Eosinophils (%) (Auto) 6.3 % Basophils (%) (Auto) 0.1 % Neutrophils # (Auto) 4.95 1.4-6.5 K/uL Lymphocytes # (Auto) 0.75 1.2-3.4 K/uL Monocytes # (Auto) 0.77 0.11-0.59 K/uL Eosinophils # (Auto) 0.44 0-0.5 K/uL Basophils # (Auto) 0.01 0-0.2 K/uL RDW Standard Deviation 48.6 36.4-46.3 fL RDW Coefficient of Variation 15.3 11.5-14.5 % Immature Granulocyte % (Auto) 0.6 % Immature Granulocyte # (Auto) 0.04 0.00-0.02 K/uL Sodium Level 142 136-145 mmol/L Potassium Level 3.3 3.5-5.1 mmol/L Chloride Level 111 98-107 mmol/L Carbon Dioxide Level 24 21-32 mmol/L Anion Gap 7.0 3-11 mmol/L Blood Urea Nitrogen 32 7-18 mg/dl Creatinine 2.20 0.60-1.20 mg/dl Estimated GFR () 22.8 Estimated GFR (Non- 19.6 BUN/Creatinine Ratio 14.6 10-20 Random Glucose 95 70-99 mg/dl Calcium Level 7.7 8.5-10.1 mg/dl Total Bilirubin 0.3 0.2-1 mg/dl Direct Bilirubin < 0.1 0-0.2 mg/dl Aspartate Amino Transf (AST/SGOT) 18 15-37 U/L Alanine Aminotransferase (ALT/SGPT) 20 12-78 U/L Alkaline Phosphatase 69 45-117 U/L Total Protein 5.2 6.4-8.2 gm/dl Albumin 1.9 3.4-5.0 gm/dl Lipase 165 73-393 U/L Urine Color YELLOW Urine Appearance CLOUDY CLEAR Urine pH 5.5 4.5-7.5 Urine Specific [place] 1.024 1.000-1.030 Urine Protein 1+ NEG Urine Glucose (UA) NEG NEG Urine Ketones NEG NEG Urine Occult Blood TRACE NEG Urine Nitrite NEG NEG Urine Bilirubin NEG NEG Urine Urobilinogen NEG NEG Urine Leukocyte Esterase SMALL NEG Urine WBC (Auto) 10-30 0-5 /hpf Urine RBC (Auto) 0-4 0-4 /hpf Urine Hyaline Casts (Auto) 5-10 0-5 /lpf Urine Epithelial Cells (Auto) >30 0-5 /lpf Urine Bacteria (Auto) NEG NEG Urine Renal Epithelial Cells 5-10 0-5 /lpf Urine Pathogenic Casts 1-5 GRANULAR CASTS 0 /lpf Urine Yeast (Auto) PRESENT NONE PRSENT Microbiology Results 12/16/16 Urine Culture, Received Pending Diagnostic Radiology CT SCAN OF THE ABDOMEN AND PELVIS WITHOUT IV CONTRAST CLINICAL HISTORY: Acute renal insufficiency. COMPARISON STUDY: Abdominal [facility] from [facility] dated 11/04/2016. TECHNIQUE: CT scan of the abdomen and pelvis is performed from the lung bases to the proximal femora. Images are reviewed in the axial, sagittal, and coronal planes. IV contrast was not administered for this examination. The Examination is suboptimal without IV contrast. The examination is significantly degraded by streak artifact from spinal rods. The Examination is also significantly degraded by motion artifact. Automated dose control exposure was utilized. CT DOSE: 261.94 mGy.cm FINDINGS: Lung bases: The heart is enlarged and there is trace pericardial effusion. A chest tube terminates at the anterior left lung base from a posterior approach. There are small pleural effusions, right larger than left with associated bibasilar consolidation. Loculated fluid is noted along the left major fissure. A spiculated lesion in the left upper lobe is partially imaged on image #1. This measures up to 2.3 cm. Liver: The unenhanced liver is normal in size, contour, and attenuation. A parenchymal defect is again seen in the posterior right lobe of liver in segment VII on image #55. There is no intrahepatic biliary ductal dilatation. Gallbladder: Contracted versus surgically absent. Spleen: Normal in size and attenuation. Pancreas: The unenhanced pancreas is moderately atrophic and grossly unremarkable. Adrenal glands: Unremarkable. Kidneys: The unenhanced kidneys demonstrate cortical atrophy and are without hydronephrosis. A punctate nonobstructing calculus is present in the right upper pole. Bilateral parapelvic cysts are observed. Exophytic cysts arising from the left kidney measure up to 2 cm. Abdominal vasculature: The abdominal aorta is normal in course and caliber noting mild to moderate atherosclerotic calcification. Bowel: The small bowel and colon are normal in course and caliber. The appendix is not clearly identified. Peritoneum: There is no intraperitoneal free air or abdominal ascites. Lymphadenopathy: None. Pelvic viscera: Evaluation of the pelvis is severely degraded by streak artifact from a left hip arthroplasty. The bladder is grossly unremarkable but not well visualized. Calcified uterine fibroids are suspected. There is no adnexal lesion clearly seen. A fat-containing inguinal hernia is seen on the right. Skeletal structures: The skeletal structures are osteopenic. Advanced spondylotic change is observed. Spinal rods transfix the thoracolumbar spine. There is a chronic compression deformity of L2 with near complete bony fusion of L1 and L2. No lytic or blastic lesions are seen. There has likely been resection of the left posterior 11th and 12th ribs. A left hip arthroplasty is in place. IMPRESSION: 1. Severely degraded examination due to motion artifact and streak artifact. The examination is also suboptimal without IV contrast. 2. No acute infectious or inflammatory findings are identified in the abdomen or pelvis. 3. Nonobstructing right renal calculus. 4. Small pleural effusions, right larger than left with associated bibasilar consolidation. 5. A pleural drain is seen at the left lung base. 6. There is a parenchymal defect in the right lobe of the liver, possibly on a postsurgical basis. Clinical correlation required. 7. Cardiomegaly. 8. A spiculated pulmonary lesion is partially imaged in the left upper lobe. Correlation with the patient's oncologic history will be required. 9. Additional findings as above. Impression Assessment and Plan ACUTE RENAL FAILURE Creat increased from 0.7 to 2.2 Possible etiologies include dehydration from poor PO intake, NSAID use (on Celebrex and full dose ASA), s/e of vancomycin No evidence of ureteral obstruction on CT a/p UA clean catch- dirty, check UA cath, urine culture cath Check urine random sodium, urine random creat Received 500 mL bolus then 125/hour maintenance in ER Continue IVF's at 80 mL/ hour Hold vancomycin (trough level 40.7 today 12/16) Avoid nephrotoxins including NSAIDs Recheck PRP in am HYPOKALEMIA Likely from poor PO intake Check magnesium PO replacement ordered Recheck PRP in am PLEURAL EFFUSIONS Has PleurX catheter for malignant pleural effusion on the left S/p recent infected left pleurX catheter which was replaced on last admission CT a/p- small pleural effusions R >L, bibasilar consolidation Reports of nonproductive cough Afebrile, no leukocytosis Check CXR [address] Coates RECENT MRSA BACTEREMIA Blood cultures x 2 positive for MRSA on 12/02/16; repeat cultures negative on Had echo negative for vegetation last admission Supposed to be on vancomycin through 12/24/16 per ID note Hold vancomycin for ARF Consult infectious disease Isolation/ contact precautions ADENOCARCINOMA LEFT LUNG Recently diagnosed after presenting in September 2016 with cough/ SOB Following with Dr. Pollack; family unaware of staging- had PET scan done and planned to see Dr. Pollack for results 12/17 PET scan 11/25/16- IMPRESSION: 1. 18 mm spiculated nodule within the anterior aspect of the left upper lobe. This is FDG avid with SUV maximum of 5.7. Malignancy is suspected. 2. FDG avid mediastinal lymph nodes. 3. FDG avid right supraclavicular lymph node 4. FDG avid multinodular right lobe thyroid goiter. 5. Moderate loculated left pleural effusion. Left pleural drain. FDG avid pleural surface on the left. In the absence of a pleurodesis, the findings are viewed as suspicious for pleural metastasis. Consider oncology consult during hospitalization ANEMIA Hg 10.2; trended down from 13-14 last month to 9-10 over past week Monitor CBC HYPOCALCEMIA Calcium level 7.7, corrected Ca for hypoalbuminemia is 8.9 DVT PROPHYLAXIS Heparin SQ CODE STATUS DNR per my discussion with the patient's sister Jessica who is POA. Her home phone number is [phone]. She requests to be updated at this number. Alternate contact is marian Graff [phone]. DISPOSITION Admission to med/ surg Followed with Dr. Darshan Hudson in [place] in the past, now under care of Dr. Perez at [facility] Patient seen in collaboration with Dr. Lehman. Please see his addendum. VTE Prophylaxis VTE Risk Assessment Done? Y/N: Yes Risk Level: High Given or contraindicated: Unfractionated heparin SQ Note ATTENDING ADDENDUM Record reviewed. Patient interviewed and examined in ED. Care coordinated with Alice Meyers PA-C. Please refer to her documentation for patient's history. Briefly, 86 yo female with history of adenocarcinoma of lung with metastatic pleural effusion. PleurX catheter placed in October. Purulent drainage was noted from the catheter and cultures reportedly grew MRSA. Admitted to [facility] on 12/02/16. Blood cultures grew MRSA. Transthoracic echo did not show any evidence of endocarditis. ID consulted. Course of IV vancomycin recommended. Transferred to [facility] on 12/11/16. Labs at [facility] demonstrated creatinine rising from 0.7 to 2.1. PO intake reportedly poor. EXAM: General- elderly female who appears to be chronically ill but in no acute distress VS- as noted Lungs- few bibasilar rales Heart- RRR, no murmur appreciated Thorax- left-sided chest tube Abdomen- + BS, soft, nontender Extremities- no pretibial edema or calf tenderness Neuro- alert, confused DATA: Hgb 10.2, WBC 6960, plts 183,000. BUN 32, creat 2.2, K 3.3, alb 1.9. Other lab studies as noted. CXR- PATRICK lesion, small bilat pleural effusions, left pleural drain. CT abdomen + pelvis- nonobstructing calculus right kidney, no hydronephrosis. ASSESSMENT AND PLAN: ACUTE KIDNEY INJURY Serum creatinine 3.2 compared to recent baseline of 0.7. No apparent urinary tract obstruction per CT. RAFAELA could be secondary to vancomycin, volume depletion, or combination of the two. Check FE Na. IV fluids. Hold vancomycin. Consult Nephrology. RECENT MRSA EMPYEMA + BACTEREMIA Hold vancomycin due to RAFAELA. Consult ID for further recommendations. ADENOCARCINOMA LUNG Management per Hematology / Oncology. VTE PROPHYLAXIS SQ heparin. Please refer to MARY Meyers's documentation for discussion of other issues. Dalton Lehman MD .
[2016-12-16 20:23] VITALS: BP 151/73; PULSE 90; TEMP 36.8; Ht 167.6 cm; Wt 52.9 kg
--- NOTE | 2016-12-16 20:24 | DIAGNOSTIC IMAGING REPORT ---
TWO VIEW CHEST CLINICAL HISTORY: Pleural effusion. FINDINGS: PA and lateral chest radiographs are compared to study dated 12/10/2016 correlation is made with chest CT dated 12/06/2016. The PA view is degraded by patient rotation. A right PICC line is unchanged in position. A pleural drain is present at the left lung base The heart is mildly enlarged and there is atherosclerotic calcification of the thoracic aorta. The pulmonary vasculature is noncongested. There are small pleural effusions, right larger left with bibasilar airspace opacities. Loculated fluid is present along the left major fissure at the left lung base. An irregular airspace opacity in the left upper lung is unchanged. There is no pneumothorax. The skeletal structures are osteopenic. Fusion hardware is seen in the upper lumbar spine. Degenerative change is noted in the thoracic spine. Metallic foreign bodies are again seen in the right neck. IMPRESSION: 1. Small pleural effusions, right larger than left with bibasilar airspace opacities. These were better characterized on today's abdominal CT. 2. A pleural drain is again noted at the left lung base. 3. A left upper lobe irregular opacity is unchanged. Correlation the patient's oncological history. Electronically signed by: Vincent Pitts M.D. 12/16/2016 8:22 PM Dictated Date/Time: 12/16/2016 8:19 PM
--- NOTE | 2016-12-16 20:45 | EMERGENCY ROOM VISIT NOTE ---
History Report prepared by Susanne: Daniel Hope Under the Supervision of: Dr. Dalton Medina M.D. First contact with patient: 15:10 Chief Complaint: ABNORMAL LABS Stated Complaint: ABNORMAL LABS History of Present Illness The patient is an 86 year old female who presents to the Emergency Room with abnormal labs found this morning. The states the she feels well currently and does not know why she is here. She notes that she currently lives at [facility]. The patient reports that she has a history of lung cancer. She states that she has a PICC line but does not know why. The nurses report says that she is here because of abnormal lab results. Pt denies LOC, headache, fevers, chills , diaphoresis, visual changes, neck pain, chest pain, breathing difficulties, nausea, vomiting, abdominal pain, back pain, melena, hematochezia, urinary symptoms, numbness, weakness, lymphadenopathy, rash, or other complaints. The patients out-patient Creatinine levels were 2.2 and this was the same as before. Source of History: patient Onset: prior to arrival Position: other (global) Quality: other (abnormal labs) Timing: constant Review of Systems See HPI for pertinent positives and negatives. A total of ten systems were reviewed and were otherwise negative. Past Medical & Surgical Medical Problems: (1) Acute renal failure (2) Adenocarcinoma of left lung (3) Empyema (4) Empyema lung (5) Leukocytosis (6) S/p pleural catheter placement (7) Staphylococcus aureus septicemia Surgical Problems: (1) History of lumbar surgery (2) History of total hip replacement (3) S/P thoracentesis Family History No pertinent family history stated. Social History Smoking Status: Never Smoker Marital Status: single Occupation Status: retired Current/Historical Medications Scheduled Aspirin (Aspirin), 325 MG PO BID Celecoxib (Celebrex), 1 CAP PO BID Citalopram (Citalopram Hydrobromide), 10 MG PO QAM Docusate Sodium (Docusate Sodium), 100 MG PO BID [vancomycin], 1,200 MG IV. Q12 Scheduled PRN Acetaminophen Tab (Tylenol), 650 MG PO Q6H PRN for Pain or Fever Allergies Coded Allergies: No Known Allergies (Unverified , 10/25/14) Physical Exam Vital Signs Date Time Temp Pulse Resp B/P Pulse Ox O2 Delivery O2 Flow Rate FiO2 12/16/16 17:06 78 22 12/16/16 17:01 116/61 12/16/16 16:36 79 12/16/16 16:31 128/66 12/16/16 16:06 79 23 12/16/16 16:00 120/62 12/16/16 15:15 82 12/16/16 15:10 125/63 95 12/16/16 15:10 36.5 80 20 125/63 97 Room Air Physical Exam GENERAL: Awake, alert, well-appearing, in no distress HENT: Normocephalic, atraumatic. Oropharynx unremarkable. EYES: Normal conjunctiva. Sclera non-icteric. NECK: Supple. No nuchal rigidity. FROM. No JVD. RESPIRATORY: Clear to auscultation. CARDIAC: Regular rate, normal rhythm. Extremities warm and well perfused. Pulses equal. ABDOMEN: Soft, non-distended. No tenderness to palpation. No rebound or guarding. No masses. RECTAL: Deferred. MUSCULOSKELETAL: Chest examination reveals no tenderness. The back is symmetrical on inspection without obvious abnormality. There is no CVA tenderness to palpation. No joint edema. Pleur-X catheter in the left chest, PICC line in right arm LOWER EXTREMITIES: Calves are equal size bilaterally and non-tender. 2+ pedal edema. No discoloration. NEURO: Normal sensorium. No sensory or motor deficits noted. SKIN: No rash or jaundice noted. Medical Decision & Procedures ER Provider Diagnostic Interpretation: Radiology results as stated below per my review and radiologist interpretation CT SCAN OF THE ABDOMEN AND PELVIS WITHOUT IV CONTRAST CLINICAL HISTORY: Acute renal insufficiency. COMPARISON STUDY: Abdominal CT from [facility] dated 11/04/2016. TECHNIQUE: CT scan of the abdomen and pelvis is performed from the lung bases to the proximal femora. Images are reviewed in the axial, sagittal, and coronal planes. IV contrast was not administered for this examination. The Examination is suboptimal without IV contrast. The examination is significantly degraded by streak artifact from spinal rods. The Examination is also significantly degraded by motion artifact. Automated dose control exposure was utilized. CT DOSE: 261.94 mGy.cm FINDINGS: Lung bases: The heart is enlarged and there is trace pericardial effusion. A chest tube terminates at the anterior left lung base from a posterior approach. There are small pleural effusions, right larger than left with associated bibasilar consolidation. Loculated fluid is noted along the left major fissure. A spiculated lesion in the left upper lobe is partially imaged on image #1. This measures up to 2.3 cm. Liver: The unenhanced liver is normal in size, contour, and attenuation. A parenchymal defect is again seen in the posterior right lobe of liver in segment VII on image #55. There is no intrahepatic biliary ductal dilatation. Gallbladder: Contracted versus surgically absent. Spleen: Normal in size and attenuation. Pancreas: The unenhanced pancreas is moderately atrophic and grossly unremarkable. Adrenal glands: Unremarkable. Kidneys: The unenhanced kidneys demonstrate cortical atrophy and are without hydronephrosis. A punctate nonobstructing calculus is present in the right upper pole. Bilateral parapelvic cysts are observed. Exophytic cysts arising from the left kidney measure up to 2 cm. Abdominal vasculature: The abdominal aorta is normal in course and caliber noting mild to moderate atherosclerotic calcification. Bowel: The small bowel and colon are normal in course and caliber. The appendix is not clearly identified. Peritoneum: There is no intraperitoneal free air or abdominal ascites. Lymphadenopathy: None. Pelvic viscera: Evaluation of the pelvis is severely degraded by streak artifact from a left hip arthroplasty. The bladder is grossly unremarkable but not well visualized. Calcified uterine fibroids are suspected. There is no adnexal lesion clearly seen. A fat-containing inguinal hernia is seen on the right. Skeletal structures: The skeletal structures are osteopenic. Advanced spondylotic change is observed. Spinal rods transfix the thoracolumbar spine. There is a chronic compression deformity of L2 with near complete bony fusion of L1 and L2. No lytic or blastic lesions are seen. There has likely been resection of the left posterior 11th and 12th ribs. A left hip arthroplasty is in place. IMPRESSION: 1. Severely degraded examination due to motion artifact and streak artifact. The examination is also suboptimal without IV contrast. 2. No acute infectious or inflammatory findings are identified in the abdomen or pelvis. 3. Nonobstructing right renal calculus. 4. Small pleural effusions, right larger than left with associated bibasilar consolidation. 5. A pleural drain is seen at the left lung base. 6. There is a parenchymal defect in the right lobe of the liver, possibly on a postsurgical basis. Clinical correlation required. 7. Cardiomegaly. 8. A spiculated pulmonary lesion is partially imaged in the left upper lobe. Correlation with the patient's oncologic history will be required. 9. Additional findings as above. Electronically signed by: Vincent Pitts M.D. 12/16/2016 5:52 PM Dictated Date/Time: 12/16/2016 5:43 PM Laboratory Results 12/16/16 15:33 Red Blood Count 3.55, Mean Corpuscular Volume 87.0, Mean Corpuscular Hemoglobin 28.7, Mean Corpuscular Hemoglobin Concent 33.0, Mean Platelet Volume 9.3, Neutrophils (%) (Auto) 71.1, Lymphocytes (%) (Auto) 10.8, Monocytes (%) (Auto) 11.1, Eosinophils (%) (Auto) 6.3, Basophils (%) (Auto) 0.1, Neutrophils # (Auto ) 4.95, Lymphocytes # (Auto) 0.75, Monocytes # (Auto) 0.77, Eosinophils # (Auto ) 0.44, Basophils # (Auto) 0.01 12/16/16 15:33 Test 12/16/16 15:33 12/16/16 15:40 White Blood Count 6.96 K/uL (4.8-10.8) Red Blood Count 3.55 M/uL (4.2-5.4) Hemoglobin 10.2 g/dL (12.0-16.0) Hematocrit 30.9 % (37-47) Mean Corpuscular Volume 87.0 fL (80-100) Mean Corpuscular Hemoglobin 28.7 pg (25-34) Mean Corpuscular Hemoglobin Concent 33.0 g/dl (32-36) Platelet Count 183 K/uL (130-400) Mean Platelet Volume 9.3 fL (7.4-10.4) Neutrophils (%) (Auto) 71.1 % Lymphocytes (%) (Auto) 10.8 % Monocytes (%) (Auto) 11.1 % Eosinophils (%) (Auto) 6.3 % Basophils (%) (Auto) 0.1 % Neutrophils # (Auto) 4.95 K/uL (1.4-6.5) Lymphocytes # (Auto) 0.75 K/uL (1.2-3.4) Monocytes # (Auto) 0.77 K/uL (0.11-0.59) Eosinophils # (Auto) 0.44 K/uL (0-0.5) Basophils # (Auto) 0.01 K/uL (0-0.2) RDW Standard Deviation 48.6 fL (36.4-46.3) RDW Coefficient of Variation 15.3 % (11.5-14.5) Immature Granulocyte % (Auto) 0.6 % Immature Granulocyte # (Auto) 0.04 K/uL (0.00-0.02) Anion Gap 7.0 mmol/L (3-11) Estimated GFR () 22.8 Estimated GFR (Non- 19.6 BUN/Creatinine Ratio 14.6 (10-20) Calcium Level 7.7 mg/dl (8.5-10.1) Magnesium Level 2.1 mg/dl (1.8-2.4) Total Bilirubin 0.3 mg/dl (0.2-1) Direct Bilirubin < 0.1 mg/dl (0-0.2) Aspartate Amino Transf (AST/SGOT) 18 U/L (15-37) Alanine Aminotransferase (ALT/SGPT) 20 U/L (12-78) Alkaline Phosphatase 69 U/L (45-117) Total Protein 5.2 gm/dl (6.4-8.2) Albumin 1.9 gm/dl (3.4-5.0) Lipase 165 U/L (73-393) Urine Color YELLOW Urine Appearance CLOUDY (CLEAR) Urine pH 5.5 (4.5-7.5) Urine Specific Hubbard 1.024 (1.000-1.030) Urine Protein 1+ (NEG) Urine Glucose (UA) NEG (NEG) Urine Ketones NEG (NEG) Urine Occult Blood TRACE (NEG) Urine Nitrite NEG (NEG) Urine Bilirubin NEG (NEG) Urine Urobilinogen NEG (NEG) Urine Leukocyte Esterase SMALL (NEG) Urine WBC (Auto) 10-30 /hpf (0-5) Urine RBC (Auto) 0-4 /hpf (0-4) Urine Hyaline Casts (Auto) 5-10 /lpf (0-5) Urine Epithelial Cells (Auto) >30 /lpf (0-5) Urine Bacteria (Auto) NEG (NEG) Urine Renal Epithelial Cells 5-10 /lpf (0-5) Urine Pathogenic Casts 1-5 GRANULAR CASTS /lpf (0) Urine Yeast (Auto) PRESENT (NONE PRSENT) Laboratory results reviewed by me Medications Administered Medications (Trade) Dose Ordered Sig/Yfn Route Start Time Stop Time Status Last Admin Dose Admin Sodium Chloride 500 ml @ 999 mls/hr Q31M STAT IV 12/16/16 16:47 12/16/16 17:17 DC 12/16/16 17:07 999 MLS/HR Sodium Chloride (Nss 1000ml) 1,000 ml @ 125 mls/hr Q8H STAT IV 12/16/16 16:47 12/16/16 19:22 DC 12/16/16 18:02 125 MLS/HR ED Course 1551: The patient was evaluated in room C7. A complete history and physical exam was performed. 1647: Ordered Sodium Chloride 1000 ml @ 125 mls/hr IV, Sodium Chloride 500 ml @ 999 mls/hr IV. 1701: I reevaluated the patient and discussed her treatment plan. She verbalized complete understanding. 1706: I discussed the patient's case with Peter Pressley Hospitalist. The patient will be further evaluated for treatment. Medical Decision Triage Nursing notes reviewed. The patient's presentation and history were concerning for possible renal failure. Etiologies such as obstructive, Metabolic, infection, hypo/hyperglycemia, electrolyte abnormalities, cardiac sources, intracerebral event, toxicologic, neurologic, as well as others were entertained. the patient was evaluated. Outpatient blood work revealed a creatinine of 2.2 which is significantly elevated from her normal baseline. Blood work was obtained as the patient had minimal symptoms. A CBC showed a mild anemia. Creatinine was 2.2 on chemical panel consistent with renal failure. LFTs, lipase, and urinalysis were unremarkable. CT scan as above. A consultation was made with internal medicine. Hydration was initiated. The patient was evaluated in the Emergency Room for further management. The chart was completed utilizing [employer] Speech voice recognition software. Grammatical errors, random word insertions, pronoun errors, and incomplete sentences are an occasional consequence of this system due to software limitations, ambient noise, and hardware issues. Any formal questions or concerns about the content, text, or information contained within the body of this dictation should be directly addressed to the physician for clarification. Consults Time Called: 1651 Consulting Physician: Peter Pressley Returned Call: 1706 I discussed the patient's case with Peter Pressley Hospitalist. The patient will be further evaluated for treatment. Impression Primary Impression: Acute renal failure Scribe Attestation The scribe's documentation has been prepared under my direction and personally reviewed by me in its entirety. I confirm that the note above accurately reflects all work, treatment, procedures, and medical decision making performed by me. Departure Information Dispostion Being Evaluated By Hospitalist Referrals Kiko Perez M.D. (PCP) Patient Instructions My [facility]
[2016-12-16] MEDS ORDERED: ASPIRIN 325 MG ECTAB PO SCH (21:00)
[2016-12-16] MEDS: DOCUSATE SODIUM 100 MG CAP PO SCH (21:00)
[2016-12-16] MEDS ORDERED: HEPARIN SOD 5000 UNIT/0.5 ML CARP SQ ONE (21:21)
[2016-12-16] MEDS ORDERED: HEPARIN SOD 5000 UNIT/0.5 ML CARP SQ SCH (22:00)
[2016-12-16 22:06] LABS: URINE APPEARANCE TURBID (CLEAR); URINE BILIRUBIN NEG (NEG); URINE COLOR YELLOW; URINE EPITHELIAL CELL AUTO >30 /lpf (0-5); URINE NITRITE NEG (NEG); URINE SPECIFIC GRAVITY 1.018 (1.000-1.030); UROBILINOGEN NEG (NEG)
[2016-12-16 22:07] LABS: MANUAL MICROSCOPIC REQUIRED? NO; REVIEW REQ? YES
[2016-12-16 22:23] LABS: URINE PATH CASTS 1-5 GRANULAR CASTS /lpf (0)
[2016-12-16 22:58] VITALS: BP 117/65; PULSE 86; TEMP 36.9; O2SAT 95
[2016-12-17] MEDS: SODIUM CHLORIDE 0.9% 1000ML 1,000 ML IV SCH ×2 (05:10→14:11)
[2016-12-17 05:40] LABS: HEMATOCRIT 32.8 % (37-47); MEAN CORPUSCULAR HEMOGLOBIN 27.3 pg (25-34); MEAN CORPUSCULAR HGB CONC 31.4 g/dl (32-36); MEAN PLATELET VOLUME 9.2 fL (7.4-10.4); PLATELET COUNT 192 K/uL (130-400); RED BLOOD COUNT 3.77 M/uL (4.2-5.4); WHITE BLOOD COUNT 5.01 K/uL (4.8-10.8)
[2016-12-17 06:16] LABS: BUN/CREATININE RATIO 13.5 (10-20); CALCIUM 7.4 mg/dl (8.5-10.1); MAGNESIUM 1.9 mg/dl (1.8-2.4); POTASSIUM 3.7 mmol/L (3.5-5.1)
[2016-12-17] MEDS: CITALOPRAM 20 MG TAB PO SCH (07:50)
[2016-12-17] MEDS: DOCUSATE SODIUM 100 MG CAP PO SCH ×2 (07:50→20:56)
[2016-12-17 07:55] VITALS: BP 149/77; PULSE 99; TEMP 37.1; O2SAT 96
[2016-12-17 08:00] VITALS: O2SAT 96
[2016-12-17] MEDS: HEPARIN SOD 5000 UNIT/0.5 ML CARP SQ SCH ×2 (08:28→20:56)
--- NOTE | 2016-12-17 09:26 | NEPHROLOGY CONSULTATION ---
DATE OF CONSULTATION: 12/17/2016 DATE OF CONSULTATION: 12/17/2016. ATTENDING OF RECORD: Dr. Masters. REASON FOR CONSULTATION: RAFAELA. HISTORY OF PRESENT ILLNESS: This is an 86-year-old female with underlying dementia who resides at [facility] who was diagnosed with lung cancer in September of this year presented with cough and shortness of breath. The patient had a thoracentesis with a PleurX catheter placed on the left for malignant pleural effusion. The patient's PleurX catheter became infected. The PleurX catheter was replaced. There were not any signs for endocarditis. The patient had a PICC line placed in the middle of November and was discharged on vancomycin. The patient's creatinine worsened from 0.7 to low 2's. Attempted to stop the vancomycin and give IV fluids; however, her kidney function was not improving and the patient was brought into the hospital for further evaluation. The patient is comfortable on normal saline at 100 mL an hour. With her underlying dementia difficult to get a good history from her. However, the patient denies any pain, ate her breakfast relatively well and is urinating well per the nurse. PAST MEDICAL HISTORY: Adenocarcinoma of the lung, PleurX catheter with recent infection requiring PleurX catheter replacement. PAST SURGICAL HISTORY: Back surgery and hip replacement. FAMILY HISTORY: No renal disease in family. SOCIAL HISTORY: No smoking, no alcohol, no drugs. Resides in a residential. MEDICATIONS: Home meds were significant for Celebrex 1 cap b.i.d. as well as p.o. b.i.d. as well as IV vancomycin. REVIEW OF SYSTEMS: Unable to obtain secondary to patient's underlying dementia. CURRENT MEDICATIONS: Celexa 10 mg a day, heparin 5000 units subQ q. 12, Colace 100 mg p.o. b.i.d., normal saline 100 mL an hour. PHYSICAL EXAMINATION: VITAL SIGNS: Temperature 37.1, pulse 99, respiratory rate is 20, blood pressure 149/77, satting 96% on room air. GENERAL: Awake, alert, oriented x2. EYES: No scleral icterus. EARS, NOSE, THROAT: Mucous membranes are dry. NECK: Supple. PULMONARY: Mild rales at the left base with left PleurX catheter. CARDIAC: Distant heart sounds. ABDOMEN: Bowel sounds positive, soft, nontender. EXTREMITIES: No clubbing, cyanosis or edema. NEUROLOGICALLY: Nonfocal with some underlying dementia. LABORATORIES: Sodium level as 145, potassium 3.7, chloride is 115, bicarbonate is 22, BUN is 27, creatinine is 2 down from 2.2, glucose is 79, calcium 7.4 with a mag of 1.9 and albumin of 1.9. White count is 5. H\T\H 10 and 32, platelet count 192. Urine random sodium was 64. UA shows a pH of 5, specific gravity 1.018, 1+ blood, 5-10 WBCs, 5-10 RBCs, greater than 30 epis. Urine culture is pending. Chest x-ray shows small pleural effusions, pleural drain in the left lung base. Left upper lobe irregular opacity suggestive of adenocarcinoma, abdominal pelvis CT shows unenhanced kidneys showing cortical atrophy without hydro with a nonobstructing kidney stone. ASSESSMENT AND PLAN: Acute kidney injury, nonoliguric in the setting of NSAIDs and vancomycin. Vancomycin has been stopped as well as NSAIDs, Giving IV fluids, does not appear to have hydronephrosis. No role for emergent dialysis at this time. I would continue the IV fluids and tolerating them well. Hopefully creatinine eventually improves back down to baseline. We will follow volume status and electrolytes closely. I feel this is ATN which will likely slowly recover hopefully back to baseline. Appreciate consultation. WINTER
--- NOTE | 2016-12-17 11:15 | Progress Note ---
Progress Note Date of Service December 17, 2016. Progress Note ID Consult Dictated #[id number] A/P: 1. MRSA sepsis -continue to hold vanco -check level in am -stop date 12/24 -will follow, thank you
--- NOTE | 2016-12-17 11:44 | INFECT. DISEASE CONSULTATION ---
DATE OF CONSULTATION: 12/17/2016 DATE OF CONSULTATION: 12/17/2016. REQUESTING PHYSICIAN: Dr. Masters. HISTORY OF PRESENT ILLNESS: This is an 86-year-old female who was recently discharged from the hospital after she was found to have MRSA bacteremia and pleural effusion. She reportedly had a chest tube placed at an outside facility and cultures from that grew MRSA as well. She did have a catheter change and repeat studies which did not appear consistent with infected fluid, however he blood cultures were positive for MRSA. Her repeat blood cultures were negative and her echocardiogram was unremarkable for endocarditis. She was discharged from the hospital on vancomycin with a tentative stop date of 12/24/2016. She had tolerated vancomycin during her last hospital stay. Her last vancomycin trough during that admission was on the 10 of December was was 15.8. Her creatinine on the was 0.4. She was subsequently transferred to her assisted living facility and continued with vancomycin therapy. I was informed yesterday that her trough returned elevated in the 40s and her creatinine had increased. For this reason, she was sent to hospital for further evaluation and nephrology consultation. Urinalysis was unremarkable. Urine cultures are pending. Her creatinine yesterday on admission was 2.2, which is improved to 2 today. She is afebrile overnight. She has no leukocytosis. Her vancomycin has been held. No vancomycin trough has been obtained during this hospital stay. On my examination, she is resting comfortably and offers no complaints, but she does have an underlying history of dementia. Chest tube remains in place. REVIEW OF SYSTEMS: Limited, but unremarkable. PAST MEDICAL HISTORY: Significant for: 1. Newly diagnosed lung cancer. 2. Alzheimer dementia. 3. Recent MRSA bacteremia. PAST SURGICAL HISTORY: Significant for chest tube placement, lumbar surgery, total hip replacement. FAMILY HISTORY: Noncontributory. SOCIAL HISTORY: Negative for tobacco use, alcohol use or drug use. She currently lives in a long-term. ALLERGIES: She has no known drug allergies. CURRENT MEDICATIONS: Include Celexa, subQ heparin, Colace, Tylenol and Zofran. PHYSICAL EXAMINATION: VITAL SIGNS: She is afebrile, pulse 99, respiratory rate 20, blood pressure 149/77, oxygen saturation is 96% on room air. GENERAL: She is awake and comfortable. She offers no complaints. HEAD, EYES, EARS, NOSE, AND THROAT: Mucous membranes are moist. Breath sounds are decreased. Chest tube remains in place. There is no edema. SKIN: Without rash. ABDOMEN: Nondistended. LABORATORY STUDIES: CBC today reveals a white blood cell count of 5.0. Hemoglobin 10.3 and platelets of 192. Chemistry panel reveals a sodium of 145, potassium 3.7, chloride 115, BUN is 27, creatinine 2.0, glucose is 79. Imaging of the abdomen was unremarkable for infectious process. Chest x-ray did show a chest tube in place and spiculated lesion as seen previously. ASSESSMENT AND PLAN: Methicillin-resistant staphylococcus aureus bacteremia on vancomycin until 12/24/2016. She was tolerating vancomycin well during her inpatient stay; however, she has had elevated troughs reportedly and no vancomycin is on hold. I will check a random level tomorrow and if it is under 15, she can be resumed on antibiotics and alternative agent certainly would be daptomycin if feasible at her long-term secondary to cost. Her stop date 12/24/2016 will remain unchanged. Thank you for this consultation.
--- NOTE | 2016-12-17 14:25 | SURGICAL CONSULTATION ---
DATE OF CONSULTATION: 12/17/2016 HISTORY OF PRESENT ILLNESS: Ms. Sanchez is an 86-year-old female with a malignant left pleural effusion who has lung cancer. The patient had a PleurX catheter inserted at [facility] that came and appeared to be infected. She had methicillin-resistant Staph aureus in her blood. This was a few weeks ago. The PleurX catheter was removed and another PleurX catheter was placed and did not appear that she had an empyema, but she was probably infected from this catheter. At any rate, she looked good upon discharge but was placed on parenteral vancomycin. Her levels have been high and her creatinine has risen and she was admitted to the hospital for stabilization. We were asked to see her for her PleurX catheter. The patient is on room air. She states her breathing has been "fine." She will need to be drained daily. Her site is clean. Her x-ray shows very little in the way of fluid. For specifics of this patient, please refer to my history and physical, which was done on her admission, a few weeks ago. She looks clinically stable to me. WINTER
[2016-12-17 15:45] VITALS: BP 156/79; PULSE 100; TEMP 37; O2SAT 95
[2016-12-17 15:50] VITALS: O2SAT 96
--- NOTE | 2016-12-17 22:28 | Progress Note ---
Internal Med Progress Note Date of Service: December 17, 2016. Provider Documentation: SUBJECTIVE: no complain of chest pain or SOB ' feels fine no fever or chills feels constipated , asking for stool softener OBJECTIVE: Vital Signs-as noted below Exam: General-no sign of distress Eyes-sclera non icteric Lungs-diminished Heart-regular S1/S2 Abdomen-soft, non tender Extremities-no rash or deformity Neuro-AAO x3, no focal deficit Lab data as noted below. 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 Coates -appreciate input stable form respiratory stand point RECENT MRSA BACTEREMIA Blood cultures x 2 positive for MRSA on 12/02/16; repeat cultures negative on Had echo negative for vegetation last admission Supposed to be on vancomycin through 12/24/16 per ID note Hold vancomycin for ARF ID consulted ADENOCARCINOMA LEFT LUNG Recently diagnosed after presenting in September 2016 with cough/ SOB Following with Dr. Pollack; family unaware of staging- had PET scan done and planned to see Dr. Pollack for results 12/17 PET scan 11/25/16- IMPRESSION: 1. 18 mm spiculated nodule within the anterior aspect of the left upper lobe. This is FDG avid with SUV maximum of 5.7. Malignancy is suspected. 2. FDG avid mediastinal lymph nodes. 3. FDG avid right supraclavicular lymph node 4. FDG avid multinodular right lobe thyroid goiter. 5. Moderate loculated left pleural effusion. Left pleural drain. FDG avid pleural surface on the left. In the absence of a pleurodesis, the findings are viewed as suspicious for pleural metastasis. oncology consult requested ANEMIA Hg 10.2; trended down from 13-14 last month to 9-10 over past week Monitor CBC HYPOCALCEMIA Calcium level 7.7, corrected Ca for hypoalbuminemia is 8.9 DVT PROPHYLAXIS Heparin SQ CODE STATUS DNR DISPOSITION Followed with Dr. Darshan Hudson in [place] in the past, now under care of Dr. Perez at [facility] PT/OT eval prior to discharge return to [facility] for continued rehab Vital Signs: Date Time Temp Pulse Resp B/P Pulse Ox O2 Delivery O2 Flow Rate FiO2 12/17/16 15:50 96 Room Air 12/17/16 15:45 37.0 100 18 156/79 95 Room Air 12/17/16 08:00 96 Room Air 12/17/16 07:55 37.1 99 20 149/77 96 Room Air 12/17/16 00:00 Room Air Lab Results: Results Past 24 Hours Test 12/17/16 05:30 Range/Units White Blood Count 5.01 4.8-10.8 K/uL Red Blood Count 3.77 4.2-5.4 M/uL Hemoglobin 10.3 12.0-16.0 g/dL Hematocrit 32.8 37-47 % Mean Corpuscular Volume 87.0 80-100 fL Mean Corpuscular Hemoglobin 27.3 25-34 pg Mean Corpuscular Hemoglobin Concent 31.4 32-36 g/dl RDW Standard Deviation 48.1 36.4-46.3 fL RDW Coefficient of Variation 15.4 11.5-14.5 % Platelet Count 192 130-400 K/uL Mean Platelet Volume 9.2 7.4-10.4 fL Sodium Level 145 136-145 mmol/L Potassium Level 3.7 3.5-5.1 mmol/L Chloride Level 115 98-107 mmol/L Carbon Dioxide Level 22 21-32 mmol/L Anion Gap 8.0 3-11 mmol/L Blood Urea Nitrogen 27 7-18 mg/dl Creatinine 2.00 0.60-1.20 mg/dl Est Creatinine Clear Calc Drug Dose 16.9 ml/min Estimated GFR () 25.6 Estimated GFR (Non- 22.0 BUN/Creatinine Ratio 13.5 10-20 Random Glucose 79 70-99 mg/dl Calcium Level 7.4 8.5-10.1 mg/dl Magnesium Level 1.9 1.8-2.4 mg/dl
[2016-12-17] MEDS ORDERED: BISACODYL 5 MG TABEC PO PRN (23:15)
[2016-12-18 00:20] VITALS: BP 150/69; PULSE 94; TEMP 37.2; O2SAT 95
[2016-12-18] MEDS: SODIUM CHLORIDE 0.9% 1000ML 1,000 ML IV SCH ×4 (00:24→21:17)
--- NOTE | 2016-12-18 07:37 | Nephrology Progress Note ---
Nephrology Progress Note Date of Service: December 18, 2016. Subjective 86 yo female seen for follow up of andrea in setting of vanco and nsaids. pt comfortable. has underlying dementia but knows her name, the location and the year. pt not hungry but otherwise doing well. no pain. Objective Date Time Temp Pulse Resp B/P Pulse Ox O2 Delivery O2 Flow Rate FiO2 12/18/16 00:20 37.2 94 18 150/69 95 Room Air 12/18/16 00:00 Room Air 12/17/16 15:50 96 Room Air 12/17/16 15:45 37.0 100 18 156/79 95 Room Air 12/17/16 08:00 96 Room Air 12/17/16 07:55 37.1 99 20 149/77 96 Room Air Physical Exam: General-aaox3 with underlying dementia Eyes-no scleral icterus ENT-mmm Neck-supple Lungs-cta Heart-rrr Abdomen-bs+ s/nt/nd Extremities-no c/c/e Neuro-nonfocal Current Inpatient Medications Medications (Trade) Dose Ordered Sig/Yfn Route Start Time Stop Time Status Last Admin Dose Admin Acetaminophen (Tylenol Tab) 650 mg Q4H PRN PO 12/16/16 18:30 01/15/17 18:29 Ondansetron HCl 4 mg 4 mg Q6H PRN IV 12/16/16 18:30 01/15/17 18:29 Sodium Chloride (Nss 1000ml) 1,000 ml @ 100 mls/hr Q10H IV 12/16/16 18:30 12/18/16 00:24 100 MLS/HR Citalopram Hydrobromide (celeXA TAB) 10 mg QAM PO 12/17/16 09:00 01/16/17 08:59 12/17/16 07:50 10 MG Docusate Sodium (coLACE CAP) 100 mg BID PO 12/16/16 21:00 01/15/17 20:59 12/17/16 20:56 100 MG Heparin Sodium (Porcine) (Heparin Sq 5000 Unit/0.5ml) 5,000 unit Q12 SQ 12/17/16 09:00 01/16/17 08:59 12/17/16 20:56 5,000 UNIT Heparin Sodium (Porcine) (Heparin 10 Unit/ ml 5 ml Flush) 5 ml PRN PRN FLUSH 12/17/16 02:00 01/16/17 01:59 Polyethylene (Miralax Powder Packet) 17 gm DAILY PO 12/18/16 09:00 01/17/17 08:59 Bisacodyl (Dulcolax Tab) 5 mg DAILY PRN PO 12/17/16 23:15 01/16/17 23:14 Senna (Senokot Tab) 17.2 mg HS PO 12/18/16 21:00 01/17/17 20:59 Last 24 Hours Test 12/18/16 07:10 Assessment & Plan [id number] in setting of nsaids and vanco. hopefully creatinine will improve back to baseline. tolerating the iv fluids. creatinine marginally improved from 2.2 to 2. labs pending for today. no obstruction/hydo on ct scan. hypokalemia-k improved from 3.3 to 3.7, follow k levels and replete prn.
[2016-12-18 07:41] VITALS: BP 147/77; PULSE 88; TEMP 36.9; O2SAT 96
[2016-12-18 07:51] LABS: BUN/CREATININE RATIO 9.8 (10-20); CALCIUM 7.1 mg/dl (8.5-10.1); POTASSIUM 3.4 mmol/L (3.5-5.1)
[2016-12-18 08:00] VITALS: O2SAT 96
[2016-12-18] MEDS: CITALOPRAM 20 MG TAB PO SCH (08:10)
[2016-12-18] MEDS: DOCUSATE SODIUM 100 MG CAP PO SCH ×2 (08:11→20:43)
[2016-12-18] MEDS: POLYETHYLENE (MIRALAX) 17 GM PACK PO SCH (08:11)
[2016-12-18] MEDS: HEPARIN SOD 5000 UNIT/0.5 ML CARP SQ SCH ×2 (08:16→20:47)
--- NOTE | 2016-12-18 08:29 | Surgery Progress Note ---
Subjective Date of Service: December 18, 2016. Pt. resting in bed. She denies SOB or other complains. Objective Vitals Date Time Temp Pulse Resp B/P Pulse Ox O2 Delivery O2 Flow Rate FiO2 12/18/16 07:41 36.9 88 20 147/77 96 12/18/16 00:20 37.2 94 18 150/69 95 Room Air 12/18/16 00:00 Room Air 12/17/16 15:50 96 Room Air 12/17/16 15:45 37.0 100 18 156/79 95 Room Air Physical Exam General: No distress Pulmonary: + pertinent finding (decreased at bases), No accessory muscle use, No respiratory distress Neurologic: + alert & oriented x 3 Drains / Tubes pleurex (drained for 30 cc of fluid this am) Assessment & Plan 86 year old female with lung CA -pt. previously admitted with non-functioning pleurx: -this was removed and new pleurx placed -continue daily drainage of pleurx catheter
--- NOTE | 2016-12-18 10:42 | Progress Note ---
Subjective Date of Service: December 18, 2016. Subjective vanco level 23 today, unclear when last dose was given at nursing facility, has been held since admission. no new cultures to review. remains afebrile. chest tube remains in place. creat remains at 2 today. no overnight events. Objective Vital Signs Date Time Temp Pulse Resp B/P Pulse Ox O2 Delivery O2 Flow Rate FiO2 12/18/16 07:41 36.9 88 20 147/77 96 12/18/16 00:20 37.2 94 18 150/69 95 Room Air 12/18/16 00:00 Room Air 12/17/16 15:50 96 Room Air 12/17/16 15:45 37.0 100 18 156/79 95 Room Air Laboratory Results Item Value Date Time Random Vancomycin Level 23.1 mcg/ml 12/18/16 0710 Last 24 Hours Test 12/18/16 07:10 Sodium Level 144 mmol/L Potassium Level 3.4 mmol/L Chloride Level 114 mmol/L Carbon Dioxide Level 23 mmol/L Anion Gap 7.0 mmol/L Blood Urea Nitrogen 20 mg/dl Creatinine 2.00 mg/dl Est Creatinine Clear Calc Drug Dose 16.9 ml/min Estimated GFR () 25.6 Estimated GFR (Non- 22.0 BUN/Creatinine Ratio 9.8 Random Glucose 74 mg/dl Calcium Level 7.1 mg/dl Random Vancomycin Level 23.1 mcg/ml Assessment and Plan (1) Staphylococcus aureus septicemia Assessment & Plan: pt to remain on vanco until 12/24. vanco level remains elevated at 23. continue to hold until <15. follow levels. would hold through weekend and allow creat to improve, would suggest random vanco level on Wednesday and restart if <15. This can be done as outpt if pt to be d/c prior to Wednesday. will follow levels. Alternative would be daily Dapto but unsure if nursing facility will accept pt on dapto due to cost. (2) Empyema lung
[2016-12-18 14:53] VITALS: BP 133/75; PULSE 80; TEMP 36.3; O2SAT 97
[2016-12-18] MEDS ORDERED: VANCOMYCIN CONSULT ACTIVE PRN (15:00)
--- NOTE | 2016-12-18 15:42 | Pharmacy Progress Note ---
Pharmacy Antibiotic Consult Date of Service: December 18, 2016. Pharmacy Dosing Scope Pharmacy is consulted to initiate vancomycin IV dosing therapy, order appropriate labs and adjust drug dose/frequency. Ms Sanchez was previously admitted in early November for a MRSA empyema and bacteremia. She was discharged to a skilled facility on vancomycin 1200 mg IV q12 hours. Last dose appears to be on 12/14 @ 1600. Subjective The patient is a 86 year old female admitted on December 16, 2016 at 17:24 with acute kidney injury secondary to NSAIDs and vancomycin. Objective Height (Feet): 5 Height (Inches): 6.00 Weight (Kilograms): 52.900 Lab Results (24hrs): Test 12/18/16 07:10 Sodium Level 144 mmol/L (136-145) Potassium Level 3.4 mmol/L (3.5-5.1) Chloride Level 114 mmol/L (98-107) Carbon Dioxide Level 23 mmol/L (21-32) Anion Gap 7.0 mmol/L (3-11) Blood Urea Nitrogen 20 mg/dl (7-18) Creatinine 2.00 mg/dl (0.60-1.20) Est Creatinine Clear Calc Drug Dose 16.9 ml/min Estimated GFR () 25.6 Estimated GFR (Non- 22.0 BUN/Creatinine Ratio 9.8 (10-20) Random Glucose 74 mg/dl (70-99) Calcium Level 7.1 mg/dl (8.5-10.1) Random Vancomycin Level 23.1 mcg/ml Assessment & Plan Recheck random on 12/19 with AM labs and dose according to levels. Pharmacy will continue to follow and will adjust dose/frequency as necessary. Thank you
[2016-12-18] MEDS ORDERED: NURSING VERBAL MED ORDER ONE (19:15)
--- NOTE | 2016-12-18 19:20 | Progress Note ---
Internal Med Progress Note Date of Service: December 18, 2016. Provider Documentation: SUBJECTIVE: sitting up on chair , feels much better today , no complain of chest pain or SOB sister and Nephew at bedside concerned about pt's legs and elbow being swollen OBJECTIVE: Vital Signs-as noted below Exam: General-no sign of distress Eyes-sclera non icteric Lungs-diminished Heart-regular S1/S2 Abdomen-soft, non tender Extremities-+ 1- 2 edema on bilat ankles and lower ext, edema on elbow and arms Neuro-AAO x3, no focal deficit Lab data as noted below. 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 Coates -appreciate input stable form respiratory stand point Cont daily plurex catheter drainage RECENT MRSA BACTEREMIA Blood cultures x 2 positive for MRSA on 12/02/16; repeat cultures negative on Had echo negative for vegetation last admission Supposed to be on vancomycin through 12/24/16 per ID note Hold vancomycin for ARF ID consulted -appreciate input random level ~23 ( goal < 15 ) ordered to repeat Random level on Wednesday continue to hold Vancomycin as level remains elevated ADENOCARCINOMA LEFT LUNG Recently diagnosed after presenting in September 2016 with cough/ SOB Following with Dr. Pollack; had PET scan done and planned to see Dr. Pollack for results 12/17 PET scan 11/25/16- IMPRESSION: 1. 18 mm spiculated nodule within the anterior aspect of the left upper lobe. This is FDG avid with SUV maximum of 5.7. Malignancy is suspected. 2. FDG avid mediastinal lymph nodes. 3. FDG avid right supraclavicular lymph node 4. FDG avid multinodular right lobe thyroid goiter. 5. Moderate loculated left pleural effusion. Left pleural drain. FDG avid pleural surface on the left. In the absence of a pleurodesis, the findings are viewed as suspicious for pleural metastasis. pt will continue to have out pt follow up with Oncology ANEMIA Hg 10.2; trended down from 13-14 last month to 9-10 over past week Monitor CBC HYPOCALCEMIA Calcium level 7.7, corrected Ca for hypoalbuminemia is 8.9 DVT PROPHYLAXIS Heparin SQ CODE STATUS DNR DISPOSITION Followed with Dr. Darshan Hudson in [place] in the past, now under care of [facility] PT/OT eval prior to discharge return to [facility] for continued rehab Update given to patient's sister Jessica who is POA. home phone number is [phone]. She requests to be updated at this number. Alternate contact is marian Graff . Vital Signs: Date Time Temp Pulse Resp B/P Pulse Ox O2 Delivery O2 Flow Rate FiO2 12/18/16 14:53 36.3 80 20 133/75 97 12/18/16 08:00 96 Room Air 12/18/16 07:41 36.9 88 20 147/77 96 12/18/16 00:20 37.2 94 18 150/69 95 Room Air 12/18/16 00:00 Room Air Lab Results: Results Past 24 Hours Test 12/18/16 07:10 Range/Units Sodium Level 144 136-145 mmol/L Potassium Level 3.4 3.5-5.1 mmol/L Chloride Level 114 98-107 mmol/L Carbon Dioxide Level 23 21-32 mmol/L Anion Gap 7.0 3-11 mmol/L Blood Urea Nitrogen 20 7-18 mg/dl Creatinine 2.00 0.60-1.20 mg/dl Est Creatinine Clear Calc Drug Dose 16.9 ml/min Estimated GFR () 25.6 Estimated GFR (Non- 22.0 BUN/Creatinine Ratio 9.8 10-20 Random Glucose 74 70-99 mg/dl Calcium Level 7.1 8.5-10.1 mg/dl Random Vancomycin Level 23.1 mcg/ml
[2016-12-18] MEDS: SENNA 8.6 MG TAB PO SCH (20:43)
[2016-12-18 23:59] VITALS: BP 151/74; PULSE 95; TEMP 36.5; O2SAT 95
[2016-12-19] VITALS (7 sets, daily range): BP systolic 134–144; BP diastolic 60–80; PULSE 84–89; TEMP 36.2–36.8; O2SAT 95–96
[2016-12-19 04:39] LABS: HEMATOCRIT 30.6 % (37-47); MEAN CELL VOLUME 86.2 fL (80-100); MEAN CORPUSCULAR HEMOGLOBIN 28.5 pg (25-34); MEAN PLATELET VOLUME 8.7 fL (7.4-10.4); PLATELET COUNT 213 K/uL (130-400); RED BLOOD COUNT 3.55 M/uL (4.2-5.4); WHITE BLOOD COUNT 4.55 K/uL (4.8-10.8)
[2016-12-19 04:55] LABS: BUN/CREATININE RATIO 9.2 (10-20); CALCIUM 7.2 mg/dl (8.5-10.1); CREATININE 1.8 mg/dl (0.60-1.20); POTASSIUM 3.2 mmol/L (3.5-5.1)
--- NOTE | 2016-12-19 07:33 | Surgery Progress Note ---
Subjective Date of Service: December 19, 2016. Pt. states she feels well thia and and is currently not SOB. Objective Vitals Date Time Temp Pulse Resp B/P Pulse Ox O2 Delivery O2 Flow Rate FiO2 12/19/16 00:00 96 Room Air 12/18/16 23:59 36.5 95 18 151/74 95 12/18/16 20:00 Room Air 12/18/16 14:53 36.3 80 20 133/75 97 12/18/16 08:00 96 Room Air 12/18/16 07:41 36.9 88 20 147/77 96 Physical Exam General: No distress CV: + RRR Pulmonary: + pertinent finding (decreased BS at bases), No accessory muscle use, No respiratory distress Drains / Tubes pleurex (left--drained for 50 cc this am of yellow fluid) Assessment & Plan 86 year old female with lung CA -pt. previously admitted with non-functioning pleurx: -this was removed and new pleurx placed -continue daily drainage of pleurx catheter -will check CXR tomorrow
[2016-12-19] MEDS: POLYETHYLENE (MIRALAX) 17 GM PACK PO SCH (09:08)
[2016-12-19] MEDS: DOCUSATE SODIUM 100 MG CAP PO SCH ×2 (09:10→20:30)
[2016-12-19] MEDS: CITALOPRAM 20 MG TAB PO SCH (09:11)
[2016-12-19] MEDS: HEPARIN SOD 5000 UNIT/0.5 ML CARP SQ SCH (09:14)
--- NOTE | 2016-12-19 11:25 | Pharmacy Progress Note ---
Pharmacy Antibiotic Prog Note Date of Service December 19, 2016. Subjective The patient was receiving IV Vancomycin prior to admission, treatment to continue through 12/24/16 for MRSA bacteremia from 12/02/16 BCx2. Treatment currently on hold due to ARF. Objective Height (Feet): 5 Height (Inches): 6.00 Weight (Kilograms): 52.900 Levels: Item Value Date Time Random Vancomycin Level 19.6 mcg/ml 12/19/16 0430 Random Vancomycin Level 23.1 mcg/ml 12/18/16 0710 Lab Results (24hrs): Test 12/19/16 04:30 White Blood Count 4.55 K/uL (4.8-10.8) Red Blood Count 3.55 M/uL (4.2-5.4) Hemoglobin 10.1 g/dL (12.0-16.0) Hematocrit 30.6 % (37-47) Mean Corpuscular Volume 86.2 fL (80-100) Mean Corpuscular Hemoglobin 28.5 pg (25-34) Mean Corpuscular Hemoglobin Concent 33.0 g/dl (32-36) RDW Standard Deviation 47.8 fL (36.4-46.3) RDW Coefficient of Variation 15.2 % (11.5-14.5) Platelet Count 213 K/uL (130-400) Mean Platelet Volume 8.7 fL (7.4-10.4) Sodium Level 145 mmol/L (136-145) Potassium Level 3.2 mmol/L (3.5-5.1) Chloride Level 112 mmol/L (98-107) Carbon Dioxide Level 23 mmol/L (21-32) Anion Gap 10.0 mmol/L (3-11) Blood Urea Nitrogen 17 mg/dl (7-18) Creatinine 1.80 mg/dl (0.60-1.20) Est Creatinine Clear Calc Drug Dose 18.7 ml/min Estimated GFR () 29.0 Estimated GFR (Non- 25.0 BUN/Creatinine Ratio 9.2 (10-20) Random Glucose 78 mg/dl (70-99) Calcium Level 7.2 mg/dl (8.5-10.1) Random Vancomycin Level 19.6 mcg/ml Micro Results: Item Value Date Time Blood Culture - Final Complete 12/02/16 1435 Blood Staphylococcus Aureus Blood Culture - Final Complete 12/02/16 1446 Blood Staphylococcus Aureus RUN DATE: 12/06/16 [facility] LAB PAGE 1 RUN TIME: 951 Specimen Inquiry PATIENT: LAVELL WEEMS LOC: [facility] U # : [id number] AGE/SX: 86/F ROOM: [facility] REG : 12/02/[address]: Huang Coates MD : [id number] BED: 1 DIS : STATUS: ADM IN TLOC: SPEC #: [id number] XU: 12/02/16-1435 STATUS: COMP REQ #: [id number] RECD: 12/02/16-[address]: Corey Lisa PA SOURCE: BLOOD ENTR: 12/02/16-1308 [facility] DR: Kiko Perez M.D. SPDESC: Jennifer. Naranjo D.O. Whitlark, Joseph D., MD ORDERED: BLOOD CULTURE Procedure Result Verified Site BLD CULT Final 12/06/16-0952 Organism 1 STAPHYLOCOCCUS AUREUS SENS SENSITIVITY TO FOLLOW SENSITIVITY RESULT INDICATES A METHICILLIN RESISTANT STAPH. AUREUS. PHONED TO [facility] ([facility]) ON 12/06/16 AT 0808 BY Ayad Cruz. Results were verbalized back to NANY. RESULTS WERE ALSO CALLED TO [facility] CONTROL ANSWERING MACHINE ON 12/06/16 BY NANY. Positive Blood Culture Gram Stain Report to ELLIE KEARNEY on 12/03/16 At 0959 By [facility]. Results were verbalized back to [facility]. 1. STAPHYLOCOCCUS AUREUS Target Route Dose RX AB Cost M.I.C. IQ ------ ----- ------ -- ------ -------- - ------ TRIMET/SULFA S <=0.5/ 9.5 * OXACILLIN R * >2 VANCOMYCIN S 1 ERYTHROMYCIN R >4 TETRACYCLINE S <=4 CLINDAMYCIN S <=0.5 DAPTOMYCIN S <=0.5 RIFAMPIN S <=1 S = SENSITIVE I = INTERMEDIATE R = RESISTANT Item Value Date Time Blood Culture Received 12/19/16 0430 Blood Pending Blood Culture Received 12/19/16 0520 Blood Pending Assessment & Plan Vancomycin * Vancomycin IV for MRSA bacteremia (12/02/16) on hold due to ARF * Goal trough level: 15-20mcg/mL * AM level still elevated at 19.5mcg/mL * Will continue to hold Vanco * Random level ordered for: 12/20/16 AM Labs Pharmacy will continue to follow and will adjust dose/frequency as necessary. Thank you
--- NOTE | 2016-12-19 16:47 | DIAGNOSTIC IMAGING REPORT ---
CHEST ONE VIEW PORTABLE CLINICAL HISTORY: PICC line placement COMPARISON STUDY: 12/16/2016 FINDINGS: PICC catheter place in superior vena cava. No evidence of pneumothorax. Progressive findings of congestive failure and left basilar infiltrative change. IMPRESSION: PICC catheter place in superior vena cava. No evidence pneumothorax. Electronically signed by: Macario Sterling M.D. 12/19/2016 4:46 PM Dictated Date/Time: 12/19/2016 4:45 PM
--- NOTE | 2016-12-19 17:26 | DIAGNOSTIC IMAGING REPORT ---
VENOUS DOPPLER RIGHT ARM UPPER EXTREMITY VENOUS DOPPLER HISTORY: Pain. Edema. To Rule out DVT Right COMPARISON STUDY: None. FINDINGS: Study is positive for deep venous thrombosis within the subclavian vein, components of the axillary vein, and basilic. May been a structures are intact. The catheter is noted. Components of the PICC catheter is surrounded by thrombus proximally. IMPRESSION: Findings consistent with acute deep venous thrombosis primarily involving the basilic, axillary, and proximal subclavian veins. Electronically signed by: Macario Sterling M.D. 12/19/2016 5:24 PM Dictated Date/Time: 12/19/2016 5:22 PM
--- NOTE | 2016-12-19 18:00 | Progress Note ---
Progress Note Date of Service December 19, 2016. Progress Note ATTENDING NOTE : pt has pain and swelling in rt upper arm has PICC Line USG of rt upper ext : IMPRESSION: Findings consistent with acute deep venous thrombosis primarily involving the basilic, axillary, and proximal subclavian veins. acute DVT due to PICC line ordered to DC PICC line started on IV heparin wt based protocol HB 10 , no contraindication for anticoagulation Cxray shows progressive pulmonary vascular congestion Cr improved to 1.8 IVF D/charbel updated Family regarding USG finding and acute Rt upper ext DVT
[2016-12-19] MEDS ORDERED: HEPARIN IV LOW DOSE NO BOLUS SCH (18:04)
[2016-12-19 19:30] LABS: HEMATOCRIT 31.8 % (37-47); MEAN CELL VOLUME 86.4 fL (80-100); MEAN CORPUSCULAR HEMOGLOBIN 28.5 pg (25-34); MEAN PLATELET VOLUME 8.6 fL (7.4-10.4); PLATELET COUNT 211 K/uL (130-400); RED BLOOD COUNT 3.68 M/uL (4.2-5.4); WHITE BLOOD COUNT 5.05 K/uL (4.8-10.8)
[2016-12-19] MEDS: HEPARIN 25,000 UNIT/500ML D5W 500 ML IV PRN (19:33)
[2016-12-19 19:40] LABS: INR 1.1 (0.9-1.1); PARTIAL THROMBOPLASTIN RATIO 1.1; PROTHROMBIN TIME (PATIENT) 11.4 SECONDS (9.0-12.0)
--- NOTE | 2016-12-19 19:54 | Progress Note ---
Internal Med Progress Note Date of Service: December 19, 2016. Provider Documentation: SUBJECTIVE: no complain of SOB or orthopnea complain of bilat leg discomfort /pain has + 1-2 swelling bilat lower ext PICC line removed from RT upper ext no pain or discomfort at PICC line removal site, still has significant swelling started on IV Heparin OBJECTIVE: Vital Signs-as noted below Exam: General-elderly female , no sign of distress Eyes-sclera non icteric Lungs-diminished Heart-regular S1/S2 Abdomen-soft, non tender Extremities-+ 1- 2 edema on bilat ankles and lower ext, swelling on rt upper ext -PICC line removed Neuro-AAO x3, no focal deficit Lab data as noted below. ASSESSMENT & PLAN: RT UPPER ARM DVT /PICC LINE REMOVED : pt complained of pain and swelling of rt upper arm /PICC Line site USG of rt upper ext : IMPRESSION: Findings consistent with acute deep venous thrombosis primarily involving the basilic, axillary, and proximal subclavian veins. acute DVT due to PICC line PICC Lined discontinued started on IV heparin wt based protocol HB 10 , no contraindication for anticoagulation updated Family -Sister Jessica -regarding USG finding and acute Rt upper ext DVT pt complains of pain and discomfort on bilateral leg Venous Doppler of bilat lower ext ordered already on full anticoagulation with IV heparin ACUTE CHF : Cxray shows progressive pulmonary vascular congestion Cr improved to 1.8 IVF D/charbel No Lasix ordered for ATN ACUTE RENAL FAILURE/ATN Possible etiologies include dehydration from poor PO intake, NSAID use (on Celebrex and full dose ASA), IV Vancomycin No evidence of ureteral obstruction on CT a/p Vancomycin been kept on hold since admission ( random level 23 ) cr improved to 1.8 today , IVF D/charbel for concern for vol overload appreciate Nephrology eval MALIGNANT PLEURAL EFFUSIONS Has PleurX catheter for 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 Coates -appreciate input stable form respiratory stand point Cont daily plurex catheter drainage repeat CXray in AM RECENT MRSA BACTEREMIA Blood cultures x 2 positive for MRSA on 12/02/16; repeat cultures negative on Had echo negative for vegetation last admission Supposed to be on vancomycin through 12/24/16 per ID note Hold vancomycin for ARF ID consulted -appreciate input random level ~23 -> 19 ( goal < 15 ) ordered to repeat Random level on Wednesday continue to hold Vancomycin as level remains elevated ADENOCARCINOMA LEFT LUNG Recently diagnosed after presenting in September 2016 with cough/ SOB Following with Dr. Pollack; had PET scan done and planned to see Dr. Pollack for results 12/17 PET scan 11/25/16- IMPRESSION: 1. 18 mm spiculated nodule within the anterior aspect of the left upper lobe. This is FDG avid with SUV maximum of 5.7. Malignancy is suspected. 2. FDG avid mediastinal lymph nodes. 3. FDG avid right supraclavicular lymph node 4. FDG avid multinodular right lobe thyroid goiter. 5. Moderate loculated left pleural effusion. Left pleural drain. FDG avid pleural surface on the left. In the absence of a pleurodesis, the findings are viewed as suspicious for pleural metastasis. pt will continue to have out pt follow up with Oncology ANEMIA Hg 10.2; trended down from 13-14 last month to 9-10 over past week Monitor CBC while on IV anticoagulation HYPOCALCEMIA Calcium level 7.7, corrected Ca for hypoalbuminemia is 8.9 DVT PROPHYLAXIS IV Heparin CODE STATUS DNR DISPOSITION Followed with Dr. Darshan Hudson in [place] in the past, now under care of Dr. Perez at [facility] PT/OT eval prior to discharge return to [facility] for continued rehab Update given to patient's sister Jessica who is POA. home phone number is . She requests to be updated at this number. Alternate contact is marian Graff . Vital Signs: Date Time Temp Pulse Resp B/P Pulse Ox O2 Delivery O2 Flow Rate FiO2 12/19/16 16:00 95 Room Air 12/19/16 15:24 36.2 84 16 144/80 95 Room Air 12/19/16 10:23 96 Room Air 12/19/16 09:39 96 Room Air 12/19/16 07:45 36.8 86 16 134/72 96 Room Air 12/19/16 00:00 96 Room Air 12/18/16 23:59 36.5 95 18 151/74 95 12/18/16 20:00 Room Air Lab Results: Results Past 24 Hours Test 12/19/16 04:30 12/19/16 19:23 Range/Units White Blood Count 4.55 5.05 4.8-10.8 K/uL Red Blood Count 3.55 3.68 4.2-5.4 M/uL Hemoglobin 10.1 10.5 12.0-16.0 g/dL Hematocrit 30.6 31.8 37-47 % Mean Corpuscular Volume 86.2 86.4 80-100 fL Mean Corpuscular Hemoglobin 28.5 28.5 25-34 pg Mean Corpuscular Hemoglobin Concent 33.0 33.0 32-36 g/dl RDW Standard Deviation 47.8 48.4 36.4-46.3 fL RDW Coefficient of Variation 15.2 15.3 11.5-14.5 % Platelet Count 213 211 130-400 K/uL Mean Platelet Volume 8.7 8.6 7.4-10.4 fL Sodium Level 145 136-145 mmol/L Potassium Level 3.2 3.5-5.1 mmol/L Chloride Level 112 98-107 mmol/L Carbon Dioxide Level 23 21-32 mmol/L Anion Gap 10.0 3-11 mmol/L Blood Urea Nitrogen 17 7-18 mg/dl Creatinine 1.80 0.60-1.20 mg/dl Est Creatinine Clear Calc Drug Dose 18.7 ml/min Estimated GFR () 29.0 Estimated GFR (Non- 25.0 BUN/Creatinine Ratio 9.2 10-20 Random Glucose 78 70-99 mg/dl Calcium Level 7.2 8.5-10.1 mg/dl Random Vancomycin Level 19.6 mcg/ml Prothrombin Time 11.4 9.0-12.0 SECONDS Prothromb Time International Ratio 1.1 0.9-1.1 Activated Partial Thromboplast Time 27.9 21.0-31.0 SECONDS Partial Thromboplastin Ratio 1.1 Microbiology Results 12/19/16 Blood Culture, Received Pending 12/19/16 Blood Culture, Received Pending
[2016-12-19] MEDS: SENNA 8.6 MG TAB PO SCH (20:30)
[2016-12-19] MEDS: ROPINIROLE HCL 0.25 MG TAB PO SCH (20:31)
[2016-12-20 01:51] LABS: PARTIAL THROMBOPLASTIN RATIO 1.5
[2016-12-20] MEDS ORDERED: HEPARIN IV BOLUS 4,000 UNIT in SYRINGE 0 ML IV STA (02:03)
--- NOTE | 2016-12-20 06:48 | DIAGNOSTIC IMAGING REPORT ---
BILATERAL LOWER EXTREMITY VENOUS DOPPLER HISTORY: pain and swelling bilat lower ext R/O DVT COMPARISON STUDY: None. FINDINGS: There is normal compressibility, flow, and augmentation within the bilateral lower extremity deep venous systems. IMPRESSION: No DVT within the right or left lower extremity. Electronically signed by: Lexa Collins M.D. 12/20/2016 6:47 AM Dictated Date/Time: 12/20/2016 6:46 AM
[2016-12-20 07:02] LABS: CALCIUM 7.9 mg/dl (8.5-10.1); CREATININE 1.9 mg/dl (0.60-1.20); POTASSIUM 2.8 mmol/L (3.5-5.1)
[2016-12-20] MEDS: CITALOPRAM 20 MG TAB PO SCH (07:33)
[2016-12-20] MEDS: DOCUSATE SODIUM 100 MG CAP PO SCH ×2 (07:33→21:30)
[2016-12-20] MEDS: POLYETHYLENE (MIRALAX) 17 GM PACK PO SCH (07:34)
--- NOTE | 2016-12-20 07:35 | Surgery Progress Note ---
Subjective Date of Service: December 20, 2016. Pt. state she feels good with no complaints today Objective Vitals Date Time Temp Pulse Resp B/P Pulse Ox O2 Delivery O2 Flow Rate FiO2 12/20/16 07:25 Room Air 12/19/16 23:59 Room Air 12/19/16 23:26 36.2 89 18 136/60 96 Room Air 12/19/16 16:00 95 Room Air 12/19/16 15:24 36.2 84 16 144/80 95 Room Air 12/19/16 10:23 96 Room Air 12/19/16 09:39 96 Room Air 12/19/16 07:45 36.8 86 16 134/72 96 Room Air Physical Exam General: No distress Radiology CXR shows only small bilateral pleural effusions Drains / Tubes pleurex (drained for 25 cc this am) Assessment & Plan 86 year old female with lung CA -pt. previously admitted with non-functioning pleurx: -this was removed and new pleurx placed -continue daily drainage of pleurx catheter
--- NOTE | 2016-12-20 07:40 | DIAGNOSTIC IMAGING REPORT ---
CHEST 2 VIEWS ROUTINE HISTORY: effusion COMPARISON: Chest 12/19/2016. FINDINGS: There is a left basilar pleural catheter. Spinal rods within the lumbar region. Small amount of gas and fluid persists at the left lung base. There is a trace right pleural effusion. The heart remains enlarged. Left perihilar hazy airspace opacity persists. Mild congestive change has improved. IMPRESSION: 1. No change in the small left basilar hydropneumothorax. The left basilar pleural catheter is unchanged in position. 2. Mild congestive change has improved. 3. Left perihilar hazy airspace opacity persists. This may represent the layering pleural fluid. Electronically signed by: Lexa Collins M.D. 12/20/2016 7:39 AM Dictated Date/Time: 12/20/2016 7:37 AM
[2016-12-20] MEDS ORDERED: POTASSIUM CHLORIDE 10 MEQ TABCR PO STA (08:04)
[2016-12-20 08:06] VITALS: BP 147/75; PULSE 84; TEMP 36.9; O2SAT 95
[2016-12-20 08:47] LABS: PARTIAL THROMBOPLASTIN RATIO 1.9
[2016-12-20] MEDS ORDERED: POTASSIUM CHLORIDE 20 MEQ TABCR PO SCH (09:00)
--- NOTE | 2016-12-20 11:08 | Nephrology Progress Note ---
Nephrology Progress Note Date of Service: December 20, 2016. Subjective 86 yo female seen for follow up of andrea in setting of vanco and nsaids. pt complaining of upset stomach this morning. pts memory not good. comfortable though and sitting in her chair. Objective Date Time Temp Pulse Resp B/P Pulse Ox O2 Delivery O2 Flow Rate FiO2 12/20/16 08:06 36.9 84 16 147/75 95 Room Air 12/20/16 07:25 Room Air 12/19/16 23:59 Room Air 12/19/16 23:26 36.2 89 18 136/60 96 Room Air 12/19/16 16:00 95 Room Air 12/19/16 15:24 36.2 84 16 144/80 95 Room Air Physical Exam: General-aaox3 with underlying dementia Eyes-no scleral icterus ENT-mmm Neck-supple Lungs-decreased breath sounds at left base with left pleurx catheter Heart-regular Abdomen-bs+ s/nt/nd Extremities-+1 edema Neuro-nonfocal with underlying dementia Current Inpatient Medications Medications (Trade) Dose Ordered Sig/Yfn Route Start Time Stop Time Status Last Admin Dose Admin Acetaminophen (Tylenol Tab) 650 mg Q4H PRN PO 12/16/16 18:30 01/15/17 18:29 12/19/16 16:47 650 MG Ondansetron HCl (Zofran Inj) 4 mg Q6H PRN IV 12/16/16 18:30 01/15/17 18:29 Citalopram Hydrobromide (celeXA TAB) 10 mg QAM PO 12/17/16 09:00 01/16/17 08:59 12/20/16 07:33 10 MG Docusate Sodium (coLACE CAP) 100 mg BID PO 12/16/16 21:00 01/15/17 20:59 12/20/16 07:33 100 MG Heparin Sodium (Porcine) (Heparin 10 Unit/ ml 5 ml Flush) 5 ml PRN PRN FLUSH 12/17/16 02:00 01/16/17 01:59 12/19/16 07:51 5 ML Polyethylene (Miralax Powder Packet) 17 gm DAILY PO 12/18/16 09:00 01/17/17 08:59 12/20/16 07:34 17 GM Bisacodyl (Dulcolax Tab) 5 mg DAILY PRN PO 12/17/16 23:15 01/16/17 23:14 Senna (Senokot Tab) 17.2 mg HS PO 12/18/16 21:00 01/17/17 20:59 12/19/16 20:30 17.2 MG Vancomycin HCl 1 ea 1 ea UD PRN N/A 12/18/16 15:00 01/17/17 14:59 Heparin Sodium/ Dextrose (Heparin 25,000 Unit/500ml D5W) 500 ml @ 15 mls/hr Q24H PRN IV 12/19/16 19:15 01/18/17 19:14 12/19/16 19:33 13 MLS/HR Ropinirole HCl (Requip Tab) 0.25 mg HS PO 12/19/16 21:00 01/18/17 20:59 12/19/16 20:31 0.25 MG Potassium Chloride (Klor-Con Tab) 20 meq QAM PO 12/21/16 09:00 01/20/17 08:59 Last 24 Hours Test 12/19/16 19:23 12/20/16 01:32 12/20/16 05:17 12/20/16 08:19 White Blood Count 5.05 K/uL Red Blood Count 3.68 M/uL Hemoglobin 10.5 g/dL Hematocrit 31.8 % Mean Corpuscular Volume 86.4 fL Mean Corpuscular Hemoglobin 28.5 pg Mean Corpuscular Hemoglobin Concent 33.0 g/dl RDW Standard Deviation 48.4 fL RDW Coefficient of Variation 15.3 % Platelet Count 211 K/uL Mean Platelet Volume 8.6 fL Prothrombin Time 11.4 SECONDS Prothromb Time International Ratio 1.1 Activated Partial Thromboplast Time 27.9 SECONDS 38.5 SECONDS 50.0 SECONDS Partial Thromboplastin Ratio 1.1 1.5 1.9 Sodium Level 145 mmol/L Potassium Level 2.8 mmol/L Chloride Level 109 mmol/L Carbon Dioxide Level 25 mmol/L Anion Gap 11.0 mmol/L Blood Urea Nitrogen 15 mg/dl Creatinine 1.90 mg/dl Est Creatinine Clear Calc Drug Dose 17.7 ml/min Estimated GFR () 27.2 Estimated GFR (Non- 23.5 BUN/Creatinine Ratio 8.0 Random Glucose 76 mg/dl Calcium Level 7.9 mg/dl Random Vancomycin Level 13.2 mcg/ml Assessment & Plan [id number] in setting of nsaids and vanco. creatinine has not significantly improved despite iv fluids. iv fluids were stopped secondary to signs of fluid overload. edema is improving now. vanco has been restarted-blood and urine cultures negative except for yeast in the urine. vanco levels are appropriate. kidneys are atrophic but no hydro. no dialysis indicated at this time. hold off on diuretics despite edema since appears improved compared to yesterday and pt comfortable. trying to aid in renal preservation. hypokalemia-k has been trending down. no significant diarrhea noted. pt is urinating well. perhaps losing potassium in the urine secondary to the atn. more common with post-atn diuresis and creatinine not improving significantly to feel this is post atn diuresis. will replete potassium and follow mag levels. given 40 po this morning and 20meq daily starting tomorrow. mag was good at 1.9 at last check. to recheck k and mag this afternoon along with phos to be thorough to follow electrolytes. will also check an ionized calcium to be thorough. calcium corrects to normal with albumin.
[2016-12-20 13:56] LABS: URINE APPEARANCE CLEAR (CLEAR); URINE BILIRUBIN NEG (NEG); URINE COLOR YELLOW; URINE EPITHELIAL CELL AUTO 20-30 /lpf (0-5); URINE NITRITE NEG (NEG); URINE PH 5.5 (4.5-7.5); URINE SPECIFIC GRAVITY 1.012 (1.000-1.030); UROBILINOGEN NEG (NEG)
[2016-12-20 14:03] LABS: MANUAL MICROSCOPIC REQUIRED? NO; REVIEW REQ? NO
[2016-12-20] MEDS ORDERED: VANCOMYCIN INJ 1,000 MG in SODIUM CHLORIDE 0.9% 250ML 250 ML IV SCH (14:30)
--- NOTE | 2016-12-20 14:34 | Pharmacy Progress Note ---
Pharmacy Antibiotic Prog Note Date of Service December 20, 2016. Subjective The patient was receiving IV Vancomycin prior to admission, treatment to continue through 12/24/16 for MRSA bacteremia from 12/02/16 BCx2. Treatment currently on hold due to ARF. Objective Height (Feet): 5 Height (Inches): 6.00 Weight (Kilograms): 52.900 Levels: Item Value Date Time Random Vancomycin Level 13.2 mcg/ml 12/20/16 0819 Random Vancomycin Level 19.6 mcg/ml 12/19/16 0430 Random Vancomycin Level 23.1 mcg/ml 12/18/16 0710 Lab Results (24hrs): Test 12/19/16 19:23 12/20/16 01:32 12/20/16 05:17 12/20/16 08:19 White Blood Count 5.05 K/uL (4.8-10.8) Red Blood Count 3.68 M/uL (4.2-5.4) Hemoglobin 10.5 g/dL (12.0-16.0) Hematocrit 31.8 % (37-47) Mean Corpuscular Volume 86.4 fL (80-100) Mean Corpuscular Hemoglobin 28.5 pg (25-34) Mean Corpuscular Hemoglobin Concent 33.0 g/dl (32-36) RDW Standard Deviation 48.4 fL (36.4-46.3) RDW Coefficient of Variation 15.3 % (11.5-14.5) Platelet Count 211 K/uL (130-400) Mean Platelet Volume 8.6 fL (7.4-10.4) Prothrombin Time 11.4 SECONDS (9.0-12.0) Prothromb Time International Ratio 1.1 (0.9-1.1) Activated Partial Thromboplast Time 38.5 SECONDS (21.0-31.0) 50.0 SECONDS (21.0-31.0) Partial Thromboplastin Ratio 1.5 1.9 Sodium Level 145 mmol/L (136-145) Potassium Level 2.8 mmol/L (3.5-5.1) Chloride Level 109 mmol/L (98-107) Carbon Dioxide Level 25 mmol/L (21-32) Anion Gap 11.0 mmol/L (3-11) Blood Urea Nitrogen 15 mg/dl (7-18) Creatinine 1.90 mg/dl (0.60-1.20) Est Creatinine Clear Calc Drug Dose 17.7 ml/min Estimated GFR () 27.2 Estimated GFR (Non- 23.5 BUN/Creatinine Ratio 8.0 (10-20) Random Glucose 76 mg/dl (70-99) Calcium Level 7.9 mg/dl (8.5-10.1) Random Vancomycin Level 13.2 mcg/ml Test 12/20/16 13:10 Urine Color YELLOW Urine Appearance CLEAR (CLEAR) Urine pH 5.5 (4.5-7.5) Urine Specific [place] 1.012 (1.000-1.030) Urine Protein NEG (NEG) Urine Glucose (UA) NEG (NEG) Urine Ketones TRACE (NEG) Urine Occult Blood 1+ (NEG) Urine Nitrite NEG (NEG) Urine Bilirubin NEG (NEG) Urine Urobilinogen NEG (NEG) Urine Leukocyte Esterase TRACE (NEG) Urine WBC (Auto) 5-10 /hpf (0-5) Urine RBC (Auto) 5-10 /hpf (0-4) Urine Hyaline Casts (Auto) 1-5 /lpf (0-5) Urine Epithelial Cells (Auto) 20-30 /lpf (0-5) Urine Bacteria (Auto) NEG (NEG) Micro Results: Item Value Date Time Urine Culture - Final Complete 12/16/16 1540 Urine , Clean Catch Diptheroids Urine Culture - Final Complete 12/16/16 2155 Urine,Catheterized NO GROWTH - LESS THAN 1,000 COLONIES/ML Blood Culture - Preliminary Resulted 12/19/16 0430 Blood NO GROWTH TO DATE. Blood Culture Received 12/19/16 0520 Blood Pending Item Value Date Time Blood Culture - Final Complete 12/02/16 1435 Blood Staphylococcus Aureus Blood Culture - Final Complete 12/02/16 1446 Blood Staphylococcus Aureus RUN DATE: 12/06/16 [facility] LAB PAGE 1 RUN TIME: 951 Specimen Inquiry PATIENT: LAVELL WEEMS LOC: Diamond # : [id number] AGE/SX: 86/F ROOM: [facility] REG : 12/02/[address]: Huang Coates MD : [id number] BED: 1 DIS : STATUS: ADM IN TLOC: SPEC #: [id number] XU: 12/02/16-143 STATUS: COMP REQ #: [id number] RECD: 12/02/16-[address]: Corey Lisa PA SOURCE: BLOOD ENTR: 12/02/16-13[address] [facility] DR: Kiko Perez M.D. SPDESC: Jennifer. Naranjo D.O. Whitlark, Joseph D., MD ORDERED: BLOOD CULTURE Procedure Result Verified Site BLD CULT Final 12/06/16-0952 Organism 1 STAPHYLOCOCCUS AUREUS SENS SENSITIVITY TO FOLLOW SENSITIVITY RESULT INDICATES A METHICILLIN RESISTANT STAPH. AUREUS. PHONED TO [facility] (EBONY TAYLOR) ON 12/06/16 AT 0808 BY Ayad Cruz. Results were verbalized back to NANY. RESULTS WERE ALSO CALLED TO [facility] INFECTION CONTROL ANSWERING MACHINE ON 12/06/16 BY NANY. Positive Blood Culture Gram Stain Report to ELLIE KEARNEY on 12/03/16 At 0959 By [facility]. Results were verbalized back to [facility]. 1. STAPHYLOCOCCUS AUREUS Target Route Dose RX AB Cost M.I.C. IQ ------ ----- ------ -- ------ -------- - ------ TRIMET/SULFA S <=0.5/ 9.5 * OXACILLIN R * >2 VANCOMYCIN S 1 ERYTHROMYCIN R >4 TETRACYCLINE S <=4 CLINDAMYCIN S <=0.5 DAPTOMYCIN S <=0.5 RIFAMPIN S <=1 S = SENSITIVE I = INTERMEDIATE R = RESISTANT Assessment & Plan Vancomycin * Vancomycin IV for MRSA bacteremia (from 12/02/16) on hold due to ARF * Goal trough level: 15-20mcg/mL * AM level: 13.2mcg/mL --> ok to re-dose * Continue with: Vancomycin 1gm IV x 1 dose today * Random level ordered for: 12/21/16 AM Labs Pharmacy will continue to follow and will adjust dose/frequency as necessary. Thank you
[2016-12-20 15:11] VITALS: BP 124/77; PULSE 94; TEMP 36.9; O2SAT 95
[2016-12-20 15:58] LABS: BUN/CREATININE RATIO 7.3 (10-20); CALCIUM 7.6 mg/dl (8.5-10.1); CREATININE 1.8 mg/dl (0.60-1.20); MAGNESIUM 1.7 mg/dl (1.8-2.4); PHOSPHORUS 3.1 mg/dl (2.5-4.9); POTASSIUM 3.1 mmol/L (3.5-5.1)
[2016-12-20 16:00] VITALS: O2SAT 95
[2016-12-20] MEDS ORDERED: MAGNESIUM SULFATE 1GM / D5W 1 GM in PREMIXED IN D5W 100 ML IV ONE ×2 (19:00→19:15)
[2016-12-20] MEDS ORDERED: WARFARIN SOD 5 MG TAB PO ONE (19:15)
[2016-12-20] MEDS ORDERED: POTASSIUM CHLORIDE 10 MEQ TABCR PO ONE (19:30)
--- NOTE | 2016-12-20 19:31 | Progress Note ---
Internal Med Progress Note Date of Service: December 20, 2016. Provider Documentation: SUBJECTIVE: feels much better today swelling and edema on upper arm improved no pain or discomfort on rt arm no fever or chills gradual improvement of bilat lower ext edema OBJECTIVE: Vital Signs-as noted below Exam: General-elderly female , no sign of distress Eyes-sclera non icteric Lungs-diminished Heart-regular S1/S2 Abdomen-soft, non tender Extremities-improved edema on bilat lower ext /no pain or swelling on rt upper arm Neuro-baseline dementia, very pleasant, oriented to person , no focal neurological deficit Lab data as noted below. ASSESSMENT & PLAN: RT UPPER ARM DVT /PICC LINE REMOVED : pt complained of pain and swelling of rt upper arm /PICC Line site USG of rt upper ext : IMPRESSION: Findings consistent with acute deep venous thrombosis primarily involving the basilic, axillary, and proximal subclavian veins. acute DVT due to PICC line PICC Lined discontinued started on IV heparin wt based protocol HB 10 , no contraindication for anticoagulation pt started on PO Coumadin will need 2-3 months of anticoagulation with INR 2-3 provoked DVT due to PICC line no complains of pain and discomfort on bilateral leg today Venous Doppler of bilat lower ext negative or DVT already on full anticoagulation with IV heparin started on Coumadin given upper ex DVT,may not need Bridge therapy anticoagulation on discharge high risk for bleed , low risk of propagation of upper ext DVT ACUTE CHF : appears to be compensated Cxray today shows improvement of pulmonary vascular congestion IVF D/charbel No Lasix ordered for ATN ACUTE RENAL FAILURE/ATN Possible etiologies include dehydration from poor PO intake, NSAID use (on Celebrex and full dose ASA), IV Vancomycin No evidence of ureteral obstruction on CT a/p Vancomycin been kept on hold since admission ( random level 23 ) cr remains stable in 1.8-1.9 appreciate Nephrology eval HYPOKALEMIA; replaced with oral K dur repeat Lab in afternoon shows K 3.1 with Low mg 1.7 ordered for oral K and IV mg supplement repeat mg /BMP in am MALIGNANT PLEURAL EFFUSIONS Has PleurX catheter for 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 Coates -appreciate input stable form respiratory stand point Cont daily plurex catheter drainage as per vacular surgery RECENT MRSA BACTEREMIA Blood cultures x 2 positive for MRSA on 12/02/16; repeat cultures negative on Had echo negative for vegetation last admission Supposed to be on vancomycin through 12/24/16 per ID note Hold vancomycin for ARF ID consulted -appreciate input random level ~23 -> 19 -> 13 ( goal < 15 ) ordered to repeat Random level on Wednesday resume Vancomycin as per ID ADENOCARCINOMA LEFT LUNG Recently diagnosed after presenting in September 2016 with cough/ SOB Following with Dr. Pollack; had PET scan done and planned to see Dr. Pollack for results 12/17 PET scan 11/25/16- IMPRESSION: 1. 18 mm spiculated nodule within the anterior aspect of the left upper lobe. This is FDG avid with SUV maximum of 5.7. Malignancy is suspected. 2. FDG avid mediastinal lymph nodes. 3. FDG avid right supraclavicular lymph node 4. FDG avid multinodular right lobe thyroid goiter. 5. Moderate loculated left pleural effusion. Left pleural drain. FDG avid pleural surface on the left. In the absence of a pleurodesis, the findings are viewed as suspicious for pleural metastasis. pt will continue to have out pt follow up with Oncology ANEMIA Hg 10.2; trended down from 13-14 last month to 9-10 over past week Monitor CBC while on IV anticoagulation HYPOCALCEMIA Calcium level 7.7, corrected Ca for hypoalbuminemia is 8.9 DVT PROPHYLAXIS IV Heparin /Coumadin CODE STATUS DNR DISPOSITION Followed with Dr. Darshan Hudson in [place] in the past, now under care of Dr. Perez at [facility] PT/OT eval prior to discharge return to [facility] for continued rehab Update given to patient's sister Jessica who is POA. Vital Signs: Date Time Temp Pulse Resp B/P Pulse Ox O2 Delivery O2 Flow Rate FiO2 12/20/16 16:00 95 Room Air 12/20/16 15:11 36.9 94 20 124/77 95 Room Air 12/20/16 08:06 36.9 84 16 147/75 95 Room Air 12/20/16 07:25 Room Air 12/19/16 23:59 Room Air 12/19/16 23:26 36.2 89 18 136/60 96 Room Air Lab Results: Results Past 24 Hours Test 12/20/16 01:32 12/20/16 05:17 12/20/16 08:19 12/20/16 13:10 Range/Units Activated Partial Thromboplast Time 38.5 50.0 21.0-31.0 SECONDS Partial Thromboplastin Ratio 1.5 1.9 Sodium Level 145 136-145 mmol/L Potassium Level 2.8 3.5-5.1 mmol/L Chloride Level 109 98-107 mmol/L Carbon Dioxide Level 25 21-32 mmol/L Anion Gap 11.0 3-11 mmol/L Blood Urea Nitrogen 15 7-18 mg/dl Creatinine 1.90 0.60-1.20 mg/dl Est Creatinine Clear Calc Drug Dose 17.7 ml/min Estimated GFR () 27.2 Estimated GFR (Non- 23.5 BUN/Creatinine Ratio 8.0 10-20 Random Glucose 76 70-99 mg/dl Calcium Level 7.9 8.5-10.1 mg/dl Random Vancomycin Level 13.2 mcg/ml Urine Color YELLOW Urine Appearance CLEAR CLEAR Urine pH 5.5 4.5-7.5 Urine Specific [place] 1.012 1.000-1.030 Urine Protein NEG NEG Urine Glucose (UA) NEG NEG Urine Ketones TRACE NEG Urine Occult Blood 1+ NEG Urine Nitrite NEG NEG Urine Bilirubin NEG NEG Urine Urobilinogen NEG NEG Urine Leukocyte Esterase TRACE NEG Urine WBC (Auto) 5-10 0-5 /hpf Urine RBC (Auto) 5-10 0-4 /hpf Urine Hyaline Casts (Auto) 1-5 0-5 /lpf Urine Epithelial Cells (Auto) 20-30 0-5 /lpf Urine Bacteria (Auto) NEG NEG Test 12/20/16 15:18 Range/Units Sodium Level 144 136-145 mmol/L Potassium Level 3.1 3.5-5.1 mmol/L Chloride Level 108 98-107 mmol/L Carbon Dioxide Level 26 21-32 mmol/L Anion Gap 10.0 3-11 mmol/L Blood Urea Nitrogen 13 7-18 mg/dl Creatinine 1.80 0.60-1.20 mg/dl Est Creatinine Clear Calc Drug Dose 18.7 ml/min Estimated GFR () 29.0 Estimated GFR (Non- 25.0 BUN/Creatinine Ratio 7.3 10-20 Random Glucose 81 70-99 mg/dl Calcium Level 7.6 8.5-10.1 mg/dl Ionized Calcium 1.05 1.12-1.32 mmol/l Phosphorus Level 3.1 2.5-4.9 mg/dl Magnesium Level 1.7 1.8-2.4 mg/dl
[2016-12-20] MEDS ORDERED: DAPTOMYCIN IV SCH (19:45)
[2016-12-20] MEDS ORDERED: SODIUM CHLORIDE 0.9% IV SCH (19:45)
[2016-12-20] MEDS ORDERED: CALCIUM GLUCONATE 10% 1,000 MG in SODIUM CHLORIDE 0.9% 50ML 50 ML IV ONE (20:00)
[2016-12-20 20:09] LABS: PROTHROMBIN TIME (PATIENT) 10.9 SECONDS (9.0-12.0)
[2016-12-20] MEDS: CALCIUM 600MG + VIT D 400 IU TAB PO SCH (21:30)
[2016-12-20] MEDS: ROPINIROLE HCL 0.25 MG TAB PO SCH (21:31)
[2016-12-20] MEDS: SENNA 8.6 MG TAB PO SCH (21:31)
[2016-12-21 00:04] VITALS: BP 149/71; PULSE 102; TEMP 37; O2SAT 92
[2016-12-21 00:24] VITALS: O2SAT 95
[2016-12-21 07:30] LABS: MEAN CORPUSCULAR HEMOGLOBIN 27.8 pg (25-34); MEAN CORPUSCULAR HGB CONC 32.7 g/dl (32-36); MEAN PLATELET VOLUME 8.3 fL (7.4-10.4); PLATELET COUNT 236 K/uL (130-400); RED BLOOD COUNT 3.53 M/uL (4.2-5.4); WHITE BLOOD COUNT 5.56 K/uL (4.8-10.8)
[2016-12-21 07:44] LABS: INR 1.2 (0.9-1.1); PARTIAL THROMBOPLASTIN RATIO 1.7; PROTHROMBIN TIME (PATIENT) 13.1 SECONDS (9.0-12.0)
[2016-12-21 07:51] VITALS: BP 119/65; PULSE 91; TEMP 37.2; O2SAT 92
[2016-12-21 08:00] VITALS: O2SAT 92
[2016-12-21 08:07] LABS: BUN/CREATININE RATIO 6.4 (10-20); CALCIUM 7.7 mg/dl (8.5-10.1); CREATININE 1.7 mg/dl (0.60-1.20); MAGNESIUM 1.8 mg/dl (1.8-2.4); POTASSIUM 3.3 mmol/L (3.5-5.1)
[2016-12-21] MEDS: DOCUSATE SODIUM 100 MG CAP PO SCH ×2 (08:22→20:57)
[2016-12-21] MEDS: POLYETHYLENE (MIRALAX) 17 GM PACK PO SCH (08:22)
[2016-12-21] MEDS: CITALOPRAM 20 MG TAB PO SCH (08:22)
[2016-12-21] MEDS: POTASSIUM CHLORIDE 20 MEQ TABCR PO SCH (08:22)
[2016-12-21] MEDS: CALCIUM 600MG + VIT D 400 IU TAB PO SCH ×2 (08:22→20:57)
[2016-12-21] MEDS ORDERED: HEPARIN IV BOLUS 2,000 UNIT in SYRINGE 0 ML IV ONE (08:45)
[2016-12-21] MEDS: HEPARIN 25,000 UNIT/500ML D5W 500 ML IV PRN (08:50)
--- NOTE | 2016-12-21 09:15 | Progress Note ---
Subjective Date of Service: December 21, 2016. Subjective pt remains with elevated vanco level, 19.2 today. held over weekend. afebrile. blood cultures negative. no leukocytosis. stop date plan for 12/24. no events. Objective Vital Signs Date Time Temp Pulse Resp B/P Pulse Ox O2 Delivery O2 Flow Rate FiO2 12/21/16 07:51 37.2 91 20 119/65 92 12/21/16 00:24 95 Room Air 12/21/16 00:04 37.0 102 18 149/71 92 Room Air 12/20/16 16:00 95 Room Air 12/20/16 15:11 36.9 94 20 124/77 95 Room Air Laboratory Results Item Value Date Time Blood Culture - Preliminary Resulted 12/19/16 0520 Blood NO GROWTH TO DATE. Blood Culture - Preliminary Resulted 12/19/16 0430 Blood NO GROWTH TO DATE. Last 24 Hours Test 12/20/16 13:10 12/20/16 15:18 12/21/16 07:20 Urine Color YELLOW Urine Appearance CLEAR Urine pH 5.5 Urine Specific [place] 1.012 Urine Protein NEG Urine Glucose (UA) NEG Urine Ketones TRACE Urine Occult Blood 1+ Urine Nitrite NEG Urine Bilirubin NEG Urine Urobilinogen NEG Urine Leukocyte Esterase TRACE Urine WBC (Auto) 5-10 /hpf Urine RBC (Auto) 5-10 /hpf Urine Hyaline Casts (Auto) 1-5 /lpf Urine Epithelial Cells (Auto) 20-30 /lpf Urine Bacteria (Auto) NEG Prothrombin Time 10.9 SECONDS 13.1 SECONDS Prothromb Time International Ratio 1.0 1.2 Sodium Level 144 mmol/L 143 mmol/L Potassium Level 3.1 mmol/L 3.3 mmol/L Chloride Level 108 mmol/L 109 mmol/L Carbon Dioxide Level 26 mmol/L 26 mmol/L Anion Gap 10.0 mmol/L 8.0 mmol/L Blood Urea Nitrogen 13 mg/dl 11 mg/dl Creatinine 1.80 mg/dl 1.70 mg/dl Est Creatinine Clear Calc Drug Dose 18.7 ml/min 19.8 ml/min Estimated GFR () 29.0 31.1 Estimated GFR (Non- 25.0 26.8 BUN/Creatinine Ratio 7.3 6.4 Random Glucose 81 mg/dl 89 mg/dl Calcium Level 7.6 mg/dl 7.7 mg/dl Ionized Calcium 1.05 mmol/l Phosphorus Level 3.1 mg/dl Magnesium Level 1.7 mg/dl 1.8 mg/dl White Blood Count 5.56 K/uL Red Blood Count 3.53 M/uL Hemoglobin 9.8 g/dL Hematocrit 30.0 % Mean Corpuscular Volume 85.0 fL Mean Corpuscular Hemoglobin 27.8 pg Mean Corpuscular Hemoglobin Concent 32.7 g/dl RDW Standard Deviation 47.8 fL RDW Coefficient of Variation 15.4 % Platelet Count 236 K/uL Mean Platelet Volume 8.3 fL Activated Partial Thromboplast Time 43.0 SECONDS Partial Thromboplastin Ratio 1.7 25-Hydroxy Vitamin D Total 6.5 ng/ml Random Vancomycin Level 19.2 mcg/ml Assessment and Plan (1) Staphylococcus aureus septicemia Assessment & Plan: will hold kaity mendoza improving. 1.7. check level tomorrow. If <15, redose x 1. (2) Empyema lung
[2016-12-21] MEDS ORDERED: POTASSIUM CHLORIDE 10 MEQ TABCR PO STA (09:33)
--- NOTE | 2016-12-21 09:43 | Pharmacy Progress Note ---
Pharmacy Antibiotic Prog Note Date of Service December 21, 2016. Subjective The patient was receiving IV Vancomycin prior to admission, treatment to continue through 12/24/16 for MRSA bacteremia from 12/02/16 BCx2. Vancomycin currently being dosed based upon levels due to unstable renal function. Objective Height (Feet): 5 Height (Inches): 6.00 Weight (Kilograms): 52.900 Levels: Item Value Date Time Random Vancomycin Level 19.2 mcg/ml 12/21/16 0720 Random Vancomycin Level 13.2 mcg/ml 12/20/16 0819 Random Vancomycin Level 19.6 mcg/ml 12/19/16 0430 Random Vancomycin Level 23.1 mcg/ml 12/18/16 0710 Lab Results (24hrs): Test 12/20/16 13:10 12/20/16 15:18 12/21/16 07:20 Urine Color YELLOW Urine Appearance CLEAR (CLEAR) Urine pH 5.5 (4.5-7.5) Urine Specific [place] 1.012 (1.000-1.030) Urine Protein NEG (NEG) Urine Glucose (UA) NEG (NEG) Urine Ketones TRACE (NEG) Urine Occult Blood 1+ (NEG) Urine Nitrite NEG (NEG) Urine Bilirubin NEG (NEG) Urine Urobilinogen NEG (NEG) Urine Leukocyte Esterase TRACE (NEG) Urine WBC (Auto) 5-10 /hpf (0-5) Urine RBC (Auto) 5-10 /hpf (0-4) Urine Hyaline Casts (Auto) 1-5 /lpf (0-5) Urine Epithelial Cells (Auto) 20-30 /lpf (0-5) Urine Bacteria (Auto) NEG (NEG) Prothrombin Time 10.9 SECONDS (9.0-12.0) 13.1 SECONDS (9.0-12.0) Prothromb Time International Ratio 1.0 (0.9-1.1) 1.2 (0.9-1.1) Sodium Level 144 mmol/L (136-145) 143 mmol/L (136-145) Potassium Level 3.1 mmol/L (3.5-5.1) 3.3 mmol/L (3.5-5.1) Chloride Level 108 mmol/L (98-107) 109 mmol/L (98-107) Carbon Dioxide Level 26 mmol/L (21-32) 26 mmol/L (21-32) Anion Gap 10.0 mmol/L (3-11) 8.0 mmol/L (3-11) Blood Urea Nitrogen 13 mg/dl (7-18) 11 mg/dl (7-18) Creatinine 1.80 mg/dl (0.60-1.20) 1.70 mg/dl (0.60-1.20) Est Creatinine Clear Calc Drug Dose 18.7 ml/min 19.8 ml/min Estimated GFR () 29.0 31.1 Estimated GFR (Non- 25.0 26.8 BUN/Creatinine Ratio 7.3 (10-20) 6.4 (10-20) Random Glucose 81 mg/dl (70-99) 89 mg/dl (70-99) Calcium Level 7.6 mg/dl (8.5-10.1) 7.7 mg/dl (8.5-10.1) Ionized Calcium 1.05 mmol/l (1.12-1.32) Phosphorus Level 3.1 mg/dl (2.5-4.9) Magnesium Level 1.7 mg/dl (1.8-2.4) 1.8 mg/dl (1.8-2.4) White Blood Count 5.56 K/uL (4.8-10.8) Red Blood Count 3.53 M/uL (4.2-5.4) Hemoglobin 9.8 g/dL (12.0-16.0) Hematocrit 30.0 % (37-47) Mean Corpuscular Volume 85.0 fL (80-100) Mean Corpuscular Hemoglobin 27.8 pg (25-34) Mean Corpuscular Hemoglobin Concent 32.7 g/dl (32-36) RDW Standard Deviation 47.8 fL (36.4-46.3) RDW Coefficient of Variation 15.4 % (11.5-14.5) Platelet Count 236 K/uL (130-400) Mean Platelet Volume 8.3 fL (7.4-10.4) Activated Partial Thromboplast Time 43.0 SECONDS (21.0-31.0) Partial Thromboplastin Ratio 1.7 25-Hydroxy Vitamin D Total 6.5 ng/ml (30-100) Random Vancomycin Level 19.2 mcg/ml Micro Results: Item Value Date Time Blood Culture - Preliminary Resulted 12/19/16 0520 Blood NO GROWTH TO DATE. Blood Culture - Preliminary Resulted 12/19/16 0430 Blood NO GROWTH TO DATE. Urine Culture - Final Complete 12/16/16 2155 Urine,Catheterized NO GROWTH - LESS THAN 1,000 COLONIES/ML Assessment & Plan The patient was receiving IV Vancomycin prior to admission, treatment to continue through 12/24/16 for MRSA bacteremia from 12/02/16 BCx2. ID is following the patient. Vancomycin: * Random level this am was therapeutic at ~19 mcg/ml (goal 15-20 mcg/ml) * Scr slight improvement today from 1.9 to 1.7 mg/dL (CrCl ~19 ml/min) * Based upon previous random levels, estimated ke~0.014 hr-1, t1/2~48 hrs * Will dose with vancomycin 750 mg (~14 mg/kg) iv q 48 hrs to achieve an estimated trough 15-20 mcg/ml * Will start MD of vancomycin when estimated trough level <15 mcg/ml * Patient to finish tx 12/24 per ID note ; no further levels needed unless renal function changes/duration of tx extended Pharmacy will continue to follow and will adjust dose/frequency as necessary. Thank you
[2016-12-21 15:52] VITALS: BP 118/61; PULSE 90; TEMP 36.8; O2SAT 92
[2016-12-21] MEDS ORDERED: WARFARIN SOD 5 MG TAB PO SCH (16:00)
--- NOTE | 2016-12-21 16:45 | SURGERY PROGRESS NOTE ---
DATE: 12/21/2016 Ms. Sanchez is seen today on 12/21/2016. She looks fine. Her saturations on room air were excellent. We are not draining very much from her PleurX catheter. We have been getting between 10 and 50 mL. She did get a chest x-ray yesterday and now is actually quite happy with it. At this point, I think Ms. Sanchez looks good. We are going to go ahead and pull her chest tube before her discharge. She was admitted with renal failure and her kidney function is still concerning and is down to 1.7. She was 2.2 back on December 16. It should be noted that her baseline creatinine is normal.
--- NOTE | 2016-12-21 19:11 | Nephrology Progress Note ---
Nephrology Progress Note Date of Service: December 21, 2016. Subjective seen on rounds 1800; started on heparin gtt for rue dvt from / in setting of PICC; surgery plans to pull chest tube/ pleurex. sitting up in chair and denies pain or dyspnea; notes mild ankle edema; no n/v Objective Date Time Temp Pulse Resp B/P Pulse Ox O2 Delivery O2 Flow Rate FiO2 12/21/16 15:52 36.8 90 20 118/61 92 Room Air 12/21/16 08:00 92 Room Air 12/21/16 07:51 37.2 91 20 119/65 92 12/21/16 00:24 95 Room Air 12/21/16 00:04 37.0 102 18 149/71 92 Room Air Physical Exam: General-alert, interactive, appropriate, on RA Eyes-no scleral icterus ENT-mmm Neck-supple Lungs-decreased breath sounds/crx at left base with left pleurex catheter Heart-regular Abdomen-bs+ s/nt/nd Extremities-+1 ankle edema Neuro-bean, fluent speech with underlying dementia Current Inpatient Medications Medications (Trade) Dose Ordered Sig/Yfn Route Start Time Stop Time Status Last Admin Dose Admin Acetaminophen (Tylenol Tab) 650 mg Q4H PRN PO 12/16/16 18:30 01/15/17 18:29 12/19/16 16:47 650 MG Ondansetron HCl (Zofran Inj) 4 mg Q6H PRN IV 12/16/16 18:30 01/15/17 18:29 12/20/16 20:31 4 MG Citalopram Hydrobromide (celeXA TAB) 10 mg QAM PO 12/17/16 09:00 01/16/17 08:59 12/21/16 08:22 10 MG Docusate Sodium (coLACE CAP) 100 mg BID PO 12/16/16 21:00 01/15/17 20:59 12/21/16 08:22 100 MG Heparin Sodium (Porcine) (Heparin 10 Unit/ ml 5 ml Flush) 5 ml PRN PRN FLUSH 12/17/16 02:00 01/16/17 01:59 12/19/16 07:51 5 ML Polyethylene (Miralax Powder Packet) 17 gm DAILY PO 12/18/16 09:00 01/17/17 08:59 12/21/16 08:22 17 GM Bisacodyl (Dulcolax Tab) 5 mg DAILY PRN PO 12/17/16 23:15 01/16/17 23:14 Senna (Senokot Tab) 17.2 mg HS PO 12/18/16 21:00 01/17/17 20:59 12/20/16 21:31 17.2 MG Vancomycin HCl 1 ea 1 ea UD PRN N/A 12/18/16 15:00 01/17/17 14:59 Heparin Sodium/ Dextrose (Heparin 25,000 Unit/500ml D5W) 500 ml @ 16 mls/hr Q24H PRN IV 12/19/16 19:15 01/18/17 19:14 12/21/16 08:50 16 MLS/HR Ropinirole HCl (Requip Tab) 0.25 mg HS PO 12/19/16 21:00 01/18/17 20:59 12/20/16 21:31 0.25 MG Potassium Chloride (Klor-Con Tab) 20 meq QAM PO 12/21/16 09:00 01/20/17 08:59 12/21/16 08:22 20 MEQ Warfarin Sodium (Coumadin Tab) 5 mg DAILY@16 PO 12/21/16 16:00 01/20/17 15:59 12/21/16 16:20 5 MG Calcium/Vitamin D 1 tab 1 tab BID PO 12/20/16 21:00 01/19/17 20:59 12/21/16 08:22 1 TAB Vancomycin HCl/ Sodium Chloride (Vancomycin Inj/ Nss 250ml) 265 ml @ 125 mls/hr Q48H IV 12/21/16 22:00 12/24/16 23:59 Last 24 Hours Test 12/21/16 07:20 12/21/16 15:00 White Blood Count 5.56 K/uL Red Blood Count 3.53 M/uL Hemoglobin 9.8 g/dL Hematocrit 30.0 % Mean Corpuscular Volume 85.0 fL Mean Corpuscular Hemoglobin 27.8 pg Mean Corpuscular Hemoglobin Concent 32.7 g/dl RDW Standard Deviation 47.8 fL RDW Coefficient of Variation 15.4 % Platelet Count 236 K/uL Mean Platelet Volume 8.3 fL Prothrombin Time 13.1 SECONDS Prothromb Time International Ratio 1.2 Activated Partial Thromboplast Time 43.0 SECONDS 52.5 SECONDS Partial Thromboplastin Ratio 1.7 2.0 Sodium Level 143 mmol/L Potassium Level 3.3 mmol/L Chloride Level 109 mmol/L Carbon Dioxide Level 26 mmol/L Anion Gap 8.0 mmol/L Blood Urea Nitrogen 11 mg/dl Creatinine 1.70 mg/dl Est Creatinine Clear Calc Drug Dose 19.8 ml/min Estimated GFR () 31.1 Estimated GFR (Non- 26.8 BUN/Creatinine Ratio 6.4 Random Glucose 89 mg/dl Calcium Level 7.7 mg/dl Magnesium Level 1.8 mg/dl 25-Hydroxy Vitamin D Total 6.5 ng/ml Random Vancomycin Level 19.2 mcg/ml Assessment & Plan 86 yo female seen for follow up of andrea in setting of elevatee vanco level and nsaids. ID following for S aureus septicemia . vanco held today d/t levels and stop date is 12/24. UPT-gmi-pespkpts in setting of nsaids and vanco. slowly recovering ATN. iv fluids were stopped recently secondary to signs of fluid overload; CXR showed improved vasc congestion 12/20 so no lasix. edema is improving now. vanco has been restarted-blood and urine cultures negative except for yeast in the urine. vanco levels are appropriate. kidneys are atrophic but no hydro. no dialysis indicated at this time and hopefully renal improvement will continue and there will be no need. peak creatinine was 2.2 on 12/16 admission -daily bmp -follow vanco levels -avoid further nsaids -no ivf needed; prn lasix/diuretics only hypokalemia-k has been trending down. no significant diarrhea noted. perhaps losing potassium in the urine secondary to post atn diuresis. mag acceptable today -started on 20 mEq daily this am; also had additional 30 mEq this am -cont daily bmp appreciate consult; will follow with you.
--- NOTE | 2016-12-21 19:44 | Progress Note ---
Internal Med Progress Note Date of Service: December 21, 2016. Provider Documentation: SUBJECTIVE: no complain of pain or discomfort no fever or chills OBJECTIVE: Vital Signs-as noted below Exam: General-elderly female , no sign of distress Eyes-sclera non icteric Lungs-diminished Heart-regular S1/S2 Abdomen-soft, non tender Extremities-improved edema on bilat lower ext /no pain or swelling on rt upper arm Neuro-baseline dementia, very pleasant, oriented to person , no focal neurological deficit Lab data as noted below. ASSESSMENT & PLAN: RT UPPER ARM DVT /PICC LINE REMOVED : pt complained of pain and swelling of rt upper arm /PICC Line site USG of rt upper ext : IMPRESSION: Findings consistent with acute deep venous thrombosis primarily involving the basilic, axillary, and proximal subclavian veins. acute DVT due to PICC line PICC Lined discontinued started on IV heparin wt based protocol HB 10 , no contraindication for anticoagulation pt started on PO Coumadin will need 2-3 months of anticoagulation with INR 2-3 provoked DVT due to PICC line no complains of pain and discomfort on bilateral leg today Venous Doppler of bilat lower ext negative or DVT already on full anticoagulation with IV heparin started on Coumadin given upper ex DVT,may not need Bridge therapy anticoagulation on discharge high risk for bleed , low risk of propagation of upper ext DVT ACUTE CHF : appears to be compensated Cxray 12/20/16 shows improvement of pulmonary vascular congestion No Lasix ordered for ATN IVF d/charbel ACUTE RENAL FAILURE/ATN Possible etiologies include dehydration from poor PO intake, NSAID use (on Celebrex and full dose ASA), IV Vancomycin No evidence of ureteral obstruction on CT a/p Vancomycin been kept on hold since admission ( random level 23 ) cr remains stable in 1.8-1.9 improved to 1.7 today appreciate Nephrology eval cont to monitor PRP avoid nephrotoxins renal dosing of ABx HYPOKALEMIA; possible due to post ATN diuresis replaced with oral K dur repeat Lab in AM Mg wnl MALIGNANT PLEURAL EFFUSIONS Has PleurX catheter for 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 Coates -appreciate input stable form respiratory stand point plan to remove Plurex catheter prior to discharge RECENT MRSA BACTEREMIA Blood cultures x 2 positive for MRSA on 12/02/16; repeat cultures negative on Had echo negative for vegetation last admission last day of vancomycin 12/24/16 per ID note Hold vancomycin for ARF ID consulted -appreciate input random level ~23 -> 19 -> 13 given 1 dose over weekend per ID Vancomycin level elevated > 19 continue to hold Vancomycin repeat lab in AM can be given X1 dose if Vancomycin level < 15 pharmacy consulted for dosing ADENOCARCINOMA LEFT LUNG Recently diagnosed after presenting in September 2016 with cough/ SOB Following with Dr. Pollack; had PET scan done and planned to see Dr. Pollack for results 12/17 PET scan 11/25/16- IMPRESSION: 1. 18 mm spiculated nodule within the anterior aspect of the left upper lobe. This is FDG avid with SUV maximum of 5.7. Malignancy is suspected. 2. FDG avid mediastinal lymph nodes. 3. FDG avid right supraclavicular lymph node 4. FDG avid multinodular right lobe thyroid goiter. 5. Moderate loculated left pleural effusion. Left pleural drain. FDG avid pleural surface on the left. In the absence of a pleurodesis, the findings are viewed as suspicious for pleural metastasis. pt will continue to have out pt follow up with Oncology ANEMIA Hg 10.2; trended down from 13-14 last month to 9-10 over past week Monitor CBC while on IV anticoagulation HYPOCALCEMIA Calcium level 7.7, corrected Ca for hypoalbuminemia is 8.9 DVT PROPHYLAXIS IV Heparin /Coumadin CODE STATUS DNR DISPOSITION Followed with Dr. Darshan Hudson in [place] in the past, now under care of Dr. Perez at [facility] PT/OT eval prior to discharge return to [facility] for continued rehab Vital Signs: Date Time Temp Pulse Resp B/P Pulse Ox O2 Delivery O2 Flow Rate FiO2 12/21/16 16:00 Room Air 12/21/16 15:52 36.8 90 20 118/61 92 Room Air 12/21/16 08:00 92 Room Air 12/21/16 07:51 37.2 91 20 119/65 92 12/21/16 00:24 95 Room Air 12/21/16 00:04 37.0 102 18 149/71 92 Room Air Lab Results: Results Past 24 Hours Test 12/21/16 07:20 12/21/16 15:00 Range/Units White Blood Count 5.56 4.8-10.8 K/uL Red Blood Count 3.53 4.2-5.4 M/uL Hemoglobin 9.8 12.0-16.0 g/dL Hematocrit 30.0 37-47 % Mean Corpuscular Volume 85.0 80-100 fL Mean Corpuscular Hemoglobin 27.8 25-34 pg Mean Corpuscular Hemoglobin Concent 32.7 32-36 g/dl RDW Standard Deviation 47.8 36.4-46.3 fL RDW Coefficient of Variation 15.4 11.5-14.5 % Platelet Count 236 130-400 K/uL Mean Platelet Volume 8.3 7.4-10.4 fL Prothrombin Time 13.1 9.0-12.0 SECONDS Prothromb Time International Ratio 1.2 0.9-1.1 Activated Partial Thromboplast Time 43.0 52.5 21.0-31.0 SECONDS Partial Thromboplastin Ratio 1.7 2.0 Sodium Level 143 136-145 mmol/L Potassium Level 3.3 3.5-5.1 mmol/L Chloride Level 109 98-107 mmol/L Carbon Dioxide Level 26 21-32 mmol/L Anion Gap 8.0 3-11 mmol/L Blood Urea Nitrogen 11 7-18 mg/dl Creatinine 1.70 0.60-1.20 mg/dl Est Creatinine Clear Calc Drug Dose 19.8 ml/min Estimated GFR () 31.1 Estimated GFR (Non- 26.8 BUN/Creatinine Ratio 6.4 10-20 Random Glucose 89 70-99 mg/dl Calcium Level 7.7 8.5-10.1 mg/dl Magnesium Level 1.8 1.8-2.4 mg/dl 25-Hydroxy Vitamin D Total 6.5 30-100 ng/ml Random Vancomycin Level 19.2 mcg/ml
[2016-12-21] MEDS: SENNA 8.6 MG TAB PO SCH (20:56)
[2016-12-21] MEDS: ROPINIROLE HCL 0.25 MG TAB PO SCH (20:57)
[2016-12-21] MEDS ORDERED: VANCOMYCIN INJ 750 MG in SODIUM CHLORIDE 0.9% 250ML 250 ML IV SCH (22:00)
[2016-12-22 01:12] VITALS: BP 146/75; PULSE 86; TEMP 36.6; O2SAT 94
[2016-12-22 05:53] LABS: HEMATOCRIT 31.3 % (37-47); MEAN CELL VOLUME 87.2 fL (80-100); MEAN CORPUSCULAR HEMOGLOBIN 28.1 pg (25-34); MEAN CORPUSCULAR HGB CONC 32.3 g/dl (32-36); MEAN PLATELET VOLUME 8.9 fL (7.4-10.4); PLATELET COUNT 254 K/uL (130-400); RED BLOOD COUNT 3.59 M/uL (4.2-5.4); WHITE BLOOD COUNT 5.01 K/uL (4.8-10.8)
[2016-12-22 06:12] LABS: INR 2.1 (0.9-1.1); PARTIAL THROMBOPLASTIN RATIO 2.2; PROTHROMBIN TIME (PATIENT) 23.5 SECONDS (9.0-12.0)
[2016-12-22 06:38] LABS: BUN/CREATININE RATIO 8.9 (10-20); CREATININE 1.9 mg/dl (0.60-1.20); MAGNESIUM 1.8 mg/dl (1.8-2.4); POTASSIUM 3.8 mmol/L (3.5-5.1)
[2016-12-22 07:37] VITALS: BP 133/76; PULSE 87; TEMP 36.5; O2SAT 94
[2016-12-22] MEDS: POTASSIUM CHLORIDE 20 MEQ TABCR PO SCH (07:50)
[2016-12-22] MEDS: CITALOPRAM 20 MG TAB PO SCH (07:50)
[2016-12-22] MEDS: CALCIUM 600MG + VIT D 400 IU TAB PO SCH ×2 (07:50→21:30)
[2016-12-22] MEDS: POLYETHYLENE (MIRALAX) 17 GM PACK PO SCH (07:51)
[2016-12-22] MEDS: DOCUSATE SODIUM 100 MG CAP PO SCH ×2 (07:51→21:29)
[2016-12-22 08:00] VITALS: O2SAT 94
--- NOTE | 2016-12-22 10:59 | DIAGNOSTIC IMAGING REPORT ---
SINGLE VIEW CHEST CLINICAL HISTORY: Acute renal insufficiency. FINDINGS: An AP, portable, upright chest radiograph is compared to study dated 12/20/2016 and correlated with chest CT dated 12/06/2016. The examination is degraded by portable technique and patient rotation. A pleural drain is again seen at the left lung base The heart is mildly enlarged and there is atherosclerotic calcification of the thoracic aorta. The pulmonary vasculature is noncongested. Emphysema is noted. There are small pleural effusions, left larger than right with bibasilar consolidation. An irregular airspace opacity in the left upper lung is unchanged. There is no pneumothorax. The skeletal structures are osteopenic. Fusion hardware is seen in the upper lumbar spine. Degenerative change is noted in the thoracic spine. IMPRESSION: 1. Small pleural effusions, left larger than right with bibasilar airspace consolidation. This is similar to previous. Correlated clinically for evidence of pneumonia. 2. A pleural drain is again noted at the left lung base. No definite pneumothorax is identified. 3. Cardiomegaly and emphysema. 4. A left upper lobe pulmonary lesion is partially visualized. This was better characterized on the recent chest CT. Correlation with the patient's oncological history will be required. Electronically signed by: Vincent Pitts M.D. 12/22/2016 10:58 AM Dictated Date/Time: 12/22/2016 10:53 AM
--- NOTE | 2016-12-22 11:09 | SURGERY PROGRESS NOTE ---
DATE: 12/22/2016 DATE: 12/22/2016. Ms. Sanchez is seen today on 12/22/2016. Ms. Sanchez looks very good from our standpoint. She is on room air. We are draining very little fluid. I think her x-ray looks good. We are going to remove his PleurX catheter today. She has a malignant pleural effusion but I believe we have achieved auto symphysis. We will see her back in the office after her discharge.
[2016-12-22] MEDS ORDERED: NURSING VERBAL MED ORDER ONE (12:00)
--- NOTE | 2016-12-22 12:28 | Progress Note ---
Subjective Date of Service: December 22, 2016. Subjective Pt evaluation today including: conversation w/ patient, physical exam, lab review, review of studies, review of inpatient medication list Saw/examined the patient in room 257 She is doing okay, no complaints at this time, denies shortness of breath or chest pain Review of Systems Respiratory: No cough, No dyspnea on exertion, No shortness of breath, No sputum Cardiac: No chest pain Medications Current Inpatient Medications Medications (Trade) Dose Ordered Sig/Yfn Route Start Time Stop Time Status Last Admin Dose Admin Acetaminophen (Tylenol Tab) 650 mg Q4H PRN PO 12/16/16 18:30 01/15/17 18:29 12/19/16 16:47 650 MG Ondansetron HCl (Zofran Inj) 4 mg Q6H PRN IV 12/16/16 18:30 01/15/17 18:29 12/20/16 20:31 4 MG Citalopram Hydrobromide (celeXA TAB) 10 mg QAM PO 12/17/16 09:00 01/16/17 08:59 12/22/16 07:50 10 MG Docusate Sodium (coLACE CAP) 100 mg BID PO 12/16/16 21:00 01/15/17 20:59 12/22/16 07:51 100 MG Heparin Sodium (Porcine) (Heparin 10 Unit/ ml 5 ml Flush) 5 ml PRN PRN FLUSH 12/17/16 02:00 01/16/17 01:59 12/19/16 07:51 5 ML Polyethylene (Miralax Powder Packet) 17 gm DAILY PO 12/18/16 09:00 01/17/17 08:59 12/22/16 07:51 17 GM Bisacodyl (Dulcolax Tab) 5 mg DAILY PRN PO 12/17/16 23:15 01/16/17 23:14 Senna (Senokot Tab) 17.2 mg HS PO 12/18/16 21:00 01/17/17 20:59 12/21/16 20:56 17.2 MG Vancomycin HCl 1 ea 1 ea UD PRN N/A 12/18/16 15:00 01/17/17 14:59 Heparin Sodium/ Dextrose (Heparin 25,000 Unit/500ml D5W) 500 ml @ 16 mls/hr Q24H PRN IV 12/19/16 19:15 01/18/17 19:14 12/21/16 08:50 16 MLS/HR Ropinirole HCl (Requip Tab) 0.25 mg HS PO 12/19/16 21:00 01/18/17 20:59 12/21/16 20:57 0.25 MG Potassium Chloride (Klor-Con Tab) 20 meq QAM PO 12/21/16 09:00 01/20/17 08:59 12/22/16 07:50 20 MEQ Warfarin Sodium (Coumadin Tab) 5 mg DAILY@16 PO 12/21/16 16:00 01/20/17 15:59 12/21/16 16:20 5 MG Calcium/Vitamin D 1 tab 1 tab BID PO 12/20/16 21:00 01/19/17 20:59 12/22/16 07:50 1 TAB Vancomycin HCl/ Sodium Chloride (Vancomycin Inj/ Nss 250ml) 265 ml @ 125 mls/hr Q48H IV 12/21/16 22:00 12/24/16 23:59 Future Hold Miscellaneous Information (Nursing Verbal Med Order) 1 ea ONE ONCE N/A 12/22/16 12:00 12/22/16 12:01 UNV Objective Vital Signs Date Time Temp Pulse Resp B/P Pulse Ox O2 Delivery O2 Flow Rate FiO2 12/22/16 08:00 94 Room Air 12/22/16 07:37 36.5 87 16 133/76 94 Room Air 12/22/16 01:12 36.6 86 20 146/75 94 Room Air 12/22/16 00:00 Room Air 12/21/16 16:00 Room Air 12/21/16 15:52 36.8 90 20 118/61 92 Room Air Physical Exam General Appearance: no apparent distress, + cachetic, + thin Respiratory/Chest: no respiratory distress, no accessory muscle use, + decreased breath sounds Cardiovascular: regular rate, rhythm, no edema, no murmur Extremities: normal inspection, no pedal edema Laboratory Results Last 24 Hours Test 12/21/16 15:00 12/22/16 05:25 Activated Partial Thromboplast Time 52.5 SECONDS 57.2 SECONDS Partial Thromboplastin Ratio 2.0 2.2 White Blood Count 5.01 K/uL Red Blood Count 3.59 M/uL Hemoglobin 10.1 g/dL Hematocrit 31.3 % Mean Corpuscular Volume 87.2 fL Mean Corpuscular Hemoglobin 28.1 pg Mean Corpuscular Hemoglobin Concent 32.3 g/dl RDW Standard Deviation 50.1 fL RDW Coefficient of Variation 15.5 % Platelet Count 254 K/uL Mean Platelet Volume 8.9 fL Prothrombin Time 23.5 SECONDS Prothromb Time International Ratio 2.1 Sodium Level 141 mmol/L Potassium Level 3.8 mmol/L Chloride Level 107 mmol/L Carbon Dioxide Level 27 mmol/L Anion Gap 7.0 mmol/L Blood Urea Nitrogen 17 mg/dl Creatinine 1.90 mg/dl Est Creatinine Clear Calc Drug Dose 17.7 ml/min Estimated GFR () 27.2 Estimated GFR (Non- 23.5 BUN/Creatinine Ratio 8.9 Random Glucose 86 mg/dl Calcium Level 8.0 mg/dl Magnesium Level 1.8 mg/dl Random Vancomycin Level 13.5 mcg/ml Assessment and Plan This is an 86 year old female with a PMH of 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, with recent MRSA bacteremia on Vancomycin sent to [facility] due to acute kidney injury Acute Kidney Injury likely secondary to vancomycin use; ATN possibly exacerbated by NSAID use creatinine from 2.2 on admission (12/16) was discharged on 12/12 with < 1 creatinine trending down, though slight uptick today to 1.9 appreciate nephrology input vancomycin has been restarted, with stop date on 12/24 no NSAIDs at this time, and avoid nephrotoxic agents when able good PO intake at this time, no IVFs needed for now R Upper Extremity DVT RUE U/S acute deep venous thrombosis primarily involving the basilic, axillary, and proximal subclavian veins IV heparin & Coumadin will stop IV heparin today (12/22); INR = 2.1; continue Coumadin at lower dose, 2.5mg tonight (2-3 months) Malignant Pleural Effusion secondary to adenocarcinoma of the lung s/p PleurX catheter on the L will obtain CT chest today to check effusion removal of PleurX as per cardiothoracic surgery, appreciate input MRSA Bacteremia was started on Vancomycin as per ID this was held initially due to ATN and her kidney injury appreciate ID input, last date for vancomycin is 12/24 random levels drawn, and vancomycin was held today (12/22), level is < 15, so will give one last dose of Vancomycin today PICC line removed; can stop Vancomycin after today's dose Adenocarcinoma of L Lung follows with oncology malignant pleural effusion managed by cardiothoracic surgery to have outpatient oncology f/u with Dr. Pollack Anemia of Chronic Disease stable; Hgb >10, monitor DVT ppx Coumadin (IV heparin d/c'd today; 12/22) DNR d/c to [facility] in 1-2 days
--- NOTE | 2016-12-22 12:37 | DIAGNOSTIC IMAGING REPORT ---
CT SCAN OF THE CHEST WITHOUT IV CONTRAST CLINICAL HISTORY: Pleural effusion. History of lung cancer. COMPARISON STUDY: Chest CT dated 12/06/2016. PET/CT dated 11/25/2016. Chest x-ray dated 12/02/2016. TECHNIQUE: CT scan of the thorax was performed from the thoracic inlet to the upper abdomen. Images are reviewed in the axial, sagittal, and coronal planes. IV contrast was not administered for this examination as per the referring clinician. Note that the examination was performed in suboptimal fashion without IV contrast. CT DOSE: 394.86 mGy.cm FINDINGS: Thyroid: The right lobe of the thyroid gland is markedly enlarged and heterogeneous. Numerous nodules are identified measuring up to at least 2 cm. The left lobe is diminutive versus surgically absent. Thoracic aorta: There is mild atherosclerotic calcification of the thoracic aorta, which is normal in caliber and demonstrates standard 3-vessel arch anatomy. Heart: The heart is normal in size and there is a small pericardial effusion. Lungs and pleural spaces: A left-sided chest tube is unchanged in position and terminates at the anterior left lung, entering laterally between the seventh and eighth ribs. There is only trace persistent left basilar pneumothorax. There are small to moderate right and small left pleural effusions with associated atelectasis. Mild emphysema is noted. A 2.1 cm spiculated lesion in the anterior left upper lobe seen on image #168 is unchanged. Consolidative change is present in the left lower lung. There is loculated fluid seen throughout the left major fissure and in the left upper lung. Mediastinum: There are mildly enlarged mediastinal lymph nodes. A precarinal node on image #122 and measures 14 mm in short axis. A mildly enlarged subcarinal node on image #151 measures 14 mm short axis. These are similar to recent prior studies. Inés: Not well assessed without IV contrast. Axillae: There is no axillary lymphadenopathy. Lower neck: Mildly enlarged supraclavicular lymph nodes measure up to 1.5 cm in short axis. Upper abdomen: There is a punctate nonobstructing calculus in the upper pole of the right kidney. A small hiatal hernia is identified. An indeterminant attenuation lesion/parenchymal defect in the right hepatic lobe on image #232 is unchanged and measures 2.7 cm. Skeletal structures: The skeletal structures are osteopenic. No lytic or blastic bony lesions are seen. Fusion hardware is partially imaged at the thoracal lumbar junction. Findings suggest previous left lower rib resection. IMPRESSION: 1. A left-sided chest tube unchanged in position. Only trace residual pneumothorax is seen at the left lung base. 2. There are small to moderate right and small left pleural effusions. These have slightly increased in size from 12/06/2016. 3. There is increasing loculated pleural fluid seen along the left major fissure and at the left apex. 4. A spiculated lesion in the left upper lobe as well as mildly enlarged mediastinal lymph nodes have not significantly changed from recent prior studies. 5. Patchy airspace opacities in the left lower lung are indeterminate may represent atelectasis, lymphangitic spread of tumor, and/or pneumonia. Clinical correlation will be required. 6. Cardiomegaly and small pericardial effusion. 7. Additional findings as above. Electronically signed by: Vincent Pitts M.D. 12/22/2016 12:36 PM Dictated Date/Time: 12/22/2016 12:21 PM
--- NOTE | 2016-12-22 13:05 | Clinical Documentation Query ---
CLINICAL DOCUMENTATION QUERY Dr. TERRAZAS, In your clinical opinion was this patient managed for: ( ) Acute diastolic CHF, treated and resolved ( X ) Other explanation of clinical findings (Please Explain) - malignant pleural effusion ( ) Unable to determine (Please Define) ( ) Need to Discuss ( ) Not Agree The medical record reflects the following clinical findings, treatment, and risk factors. Clinical Indicators: Progress notes on 12/19 indicates pt with acute CHF. Review of ECHO from 12/07/16 showed EF of 65-70% with grade 1 diastolic dysfunction. CXR on 12/19 showed Progressive findings of congestive failure and left basilar infiltrative change. Treatment: stop IV fluids, no lasix due to ATN, repeat CXR on 12/20 and 12/22 Risk Factors: Age, RAFAELA with ATN, IV fluids Please clarify and document your clinical opinion in the progress notes and discharge summary. Terms such as "probable", "suspected", "likely", "questionable", "possible", or "still to be ruled out" are acceptable. IF IN AGREEMENT, YOU MUST DOCUMENT ABOVE DIAGNOSTIC STATEMENT IN DAILY PROGRESS NOTES AND DISCHARGE SUMMARY. This document is not part of the patient's record. Thank You, Trudy Cesar, RN [phone]
--- NOTE | 2016-12-22 13:27 | Pharmacy Progress Note ---
Pharmacy Antibiotic Prog Note Date of Service December 22, 2016. Subjective The patient is currently receiving Vancomycin per pharmacy consult The patient is currently on day #8 of Vancomycin IV therapy. Objective Height (Feet): 5 Height (Inches): 6.00 Weight (Kilograms): 52.900 Levels: Item Value Date Time Random Vancomycin Level 13.5 mcg/ml 12/22/16 0525 Random Vancomycin Level 19.2 mcg/ml 12/21/16 0720 Lab Results (24hrs): Test 12/21/16 15:00 12/22/16 05:25 Activated Partial Thromboplast Time 52.5 SECONDS (21.0-31.0) 57.2 SECONDS (21.0-31.0) Partial Thromboplastin Ratio 2.0 2.2 White Blood Count 5.01 K/uL (4.8-10.8) Red Blood Count 3.59 M/uL (4.2-5.4) Hemoglobin 10.1 g/dL (12.0-16.0) Hematocrit 31.3 % (37-47) Mean Corpuscular Volume 87.2 fL (80-100) Mean Corpuscular Hemoglobin 28.1 pg (25-34) Mean Corpuscular Hemoglobin Concent 32.3 g/dl (32-36) RDW Standard Deviation 50.1 fL (36.4-46.3) RDW Coefficient of Variation 15.5 % (11.5-14.5) Platelet Count 254 K/uL (130-400) Mean Platelet Volume 8.9 fL (7.4-10.4) Prothrombin Time 23.5 SECONDS (9.0-12.0) Prothromb Time International Ratio 2.1 (0.9-1.1) Sodium Level 141 mmol/L (136-145) Potassium Level 3.8 mmol/L (3.5-5.1) Chloride Level 107 mmol/L (98-107) Carbon Dioxide Level 27 mmol/L (21-32) Anion Gap 7.0 mmol/L (3-11) Blood Urea Nitrogen 17 mg/dl (7-18) Creatinine 1.90 mg/dl (0.60-1.20) Est Creatinine Clear Calc Drug Dose 17.7 ml/min Estimated GFR () 27.2 Estimated GFR (Non- 23.5 BUN/Creatinine Ratio 8.9 (10-20) Random Glucose 86 mg/dl (70-99) Calcium Level 8.0 mg/dl (8.5-10.1) Magnesium Level 1.8 mg/dl (1.8-2.4) Random Vancomycin Level 13.5 mcg/ml Micro Results: Item Value Date Time Blood Culture - Preliminary Resulted 12/19/16 0520 Blood NO GROWTH TO DATE. Blood Culture - Preliminary Resulted 12/19/16 0430 Blood NO GROWTH TO DATE. Assessment & Plan This patient has had Vancomycin held since 1gm dose on 12/20. It was felt that she had RAFAELA and possibly it was a result of Vancomycin. Today Dr. White took Vancomycin off hold and given the random of 13.5 this morning I gave her a dose of Vancomycin 500mg x1. There is a random ordered for tomorrow morning and Dr. Acevedo note made mention of the therapy ending as of the as planned. Will dose tomorrow based on random with AM labs. Pharmacy will continue to follow and will adjust dose/frequency as necessary. Thank you
--- NOTE | 2016-12-22 13:46 | Nephrology Progress Note ---
Nephrology Progress Note Date of Service: December 22, 2016. Subjective remains on heparin gtt for rue dvt from / in setting of PICC; sitting up in bed and denies pain or dyspnea; no n/v; denies voiding difficulties; seen on rounds this am 0740 Objective Date Time Temp Pulse Resp B/P Pulse Ox O2 Delivery O2 Flow Rate FiO2 12/22/16 08:00 94 Room Air 12/22/16 07:37 36.5 87 16 133/76 94 Room Air 12/22/16 01:12 36.6 86 20 146/75 94 Room Air 12/22/16 00:00 Room Air 12/21/16 16:00 Room Air 12/21/16 15:52 36.8 90 20 118/61 92 Room Air Physical Exam: General-alert, interactive, appropriate, on RA Eyes-no scleral icterus ENT-mmm Neck-supple Lungs-decreased breath sounds/crx at left base with left pleurex catheter Heart-regular Abdomen-bs+ s/nt/nd Extremities-+1 ankle edema Neuro-bean, fluent speech with underlying dementia Current Inpatient Medications Medications (Trade) Dose Ordered Sig/Yfn Route Start Time Stop Time Status Last Admin Dose Admin Acetaminophen (Tylenol Tab) 650 mg Q4H PRN PO 12/16/16 18:30 01/15/17 18:29 12/19/16 16:47 650 MG Ondansetron HCl (Zofran Inj) 4 mg Q6H PRN IV 12/16/16 18:30 01/15/17 18:29 12/20/16 20:31 4 MG Citalopram Hydrobromide (celeXA TAB) 10 mg QAM PO 12/17/16 09:00 01/16/17 08:59 12/22/16 07:50 10 MG Docusate Sodium (coLACE CAP) 100 mg BID PO 12/16/16 21:00 01/15/17 20:59 12/22/16 07:51 100 MG Heparin Sodium (Porcine) (Heparin 10 Unit/ ml 5 ml Flush) 5 ml PRN PRN FLUSH 12/17/16 02:00 01/16/17 01:59 12/19/16 07:51 5 ML Polyethylene (Miralax Powder Packet) 17 gm DAILY PO 12/18/16 09:00 01/17/17 08:59 12/22/16 07:51 17 GM Bisacodyl (Dulcolax Tab) 5 mg DAILY PRN PO 12/17/16 23:15 01/16/17 23:14 Senna (Senokot Tab) 17.2 mg HS PO 12/18/16 21:00 01/17/17 20:59 12/21/16 20:56 17.2 MG Vancomycin HCl (Consult) 1 ea UD PRN N/A 12/18/16 15:00 01/17/17 14:59 Ropinirole HCl (Requip Tab) 0.25 mg HS PO 12/19/16 21:00 01/18/17 20:59 12/21/16 20:57 0.25 MG Potassium Chloride (Klor-Con Tab) 20 meq QAM PO 12/21/16 09:00 01/20/17 08:59 12/22/16 07:50 20 MEQ Calcium/Vitamin D (Caltrate Plus Tab) 1 tab BID PO 12/20/16 21:00 01/19/17 20:59 12/22/16 07:50 1 TAB Warfarin Sodium 2.5 mg 2.5 mg DAILY@16 PO 12/22/16 16:00 01/21/17 15:59 Vancomycin HCl/ Sodium Chloride (Vancomycin Inj/ Nss 250ml) 260 ml @ 125 mls/hr TODAY@1400 IV 12/22/16 14:00 12/22/16 16:05 Last 24 Hours Test 12/21/16 15:00 12/22/16 05:25 Activated Partial Thromboplast Time 52.5 SECONDS 57.2 SECONDS Partial Thromboplastin Ratio 2.0 2.2 White Blood Count 5.01 K/uL Red Blood Count 3.59 M/uL Hemoglobin 10.1 g/dL Hematocrit 31.3 % Mean Corpuscular Volume 87.2 fL Mean Corpuscular Hemoglobin 28.1 pg Mean Corpuscular Hemoglobin Concent 32.3 g/dl RDW Standard Deviation 50.1 fL RDW Coefficient of Variation 15.5 % Platelet Count 254 K/uL Mean Platelet Volume 8.9 fL Prothrombin Time 23.5 SECONDS Prothromb Time International Ratio 2.1 Sodium Level 141 mmol/L Potassium Level 3.8 mmol/L Chloride Level 107 mmol/L Carbon Dioxide Level 27 mmol/L Anion Gap 7.0 mmol/L Blood Urea Nitrogen 17 mg/dl Creatinine 1.90 mg/dl Est Creatinine Clear Calc Drug Dose 17.7 ml/min Estimated GFR () 27.2 Estimated GFR (Non- 23.5 BUN/Creatinine Ratio 8.9 Random Glucose 86 mg/dl Calcium Level 8.0 mg/dl Magnesium Level 1.8 mg/dl Random Vancomycin Level 13.5 mcg/ml Assessment & Plan 86 yo female seen for follow up of andrea in setting of elevated vanco level and nsaids. ID following for S aureus septicemia . vanco held today d/t levels and stop date is 12/24. [id number] in setting of nsaids and vanco. slowly recovering ATN. iv fluids were stopped recently secondary to signs of fluid overload; CXR showed improved vasc congestion 12/20 so no lasix. edema is improving now. vanco has been restarted-blood and urine cultures negative except for yeast in the urine. vanco levels are appropriate. kidneys are atrophic but no hydro. no dialysis indicated at this time and hopefully renal improvement will continue and there will be no need. peak creatinine was 2.2 on 12/16 admission. baseline creatinine 0.8-1.0, from past month. -daily bmp -follow vanco levels -avoid further nsaids -no ivf needed; prn lasix/diuretics only hypokalemia-stable/improved. no significant diarrhea noted. perhaps losing potassium in the urine secondary to post atn diuresis. mag acceptable today -cont daily standing 20 mEq; no further supplement needed today -cont daily bmp appreciate consult; will follow with you.
[2016-12-22] MEDS ORDERED: VANCOMYCIN INJ 500 MG in SODIUM CHLORIDE 0.9% 250ML 250 ML IV SCH (14:00)
[2016-12-22 15:13] VITALS: BP 125/59; PULSE 98; TEMP 37; O2SAT 95
[2016-12-22] MEDS ORDERED: WARFARIN SOD 5 MG TAB PO SCH (16:00)
[2016-12-22] MEDS ORDERED: WARFARIN SOD 2.5 MG TAB PO SCH (16:00)
[2016-12-22] MEDS: ROPINIROLE HCL 0.25 MG TAB PO SCH (21:30)
[2016-12-22] MEDS: SENNA 8.6 MG TAB PO SCH (21:30)
[2016-12-23 00:13] VITALS: BP 146/73; PULSE 97; TEMP 37.4; O2SAT 94
[2016-12-23 07:12] LABS: HEMATOCRIT 30.3 % (37-47); MEAN CELL VOLUME 86.1 fL (80-100); MEAN CORPUSCULAR HEMOGLOBIN 27.6 pg (25-34); MEAN PLATELET VOLUME 8.5 fL (7.4-10.4); PLATELET COUNT 223 K/uL (130-400); RED BLOOD COUNT 3.52 M/uL (4.2-5.4); WHITE BLOOD COUNT 5.59 K/uL (4.8-10.8)
[2016-12-23 07:29] VITALS: BP 111/69; PULSE 90; TEMP 37; O2SAT 94
[2016-12-23 07:36] LABS: INR 3.4 (0.9-1.1); PARTIAL THROMBOPLASTIN RATIO 1.4; PROTHROMBIN TIME (PATIENT) 38.4 SECONDS (9.0-12.0)
[2016-12-23 07:43] LABS: BUN/CREATININE RATIO 8.7 (10-20); CALCIUM 7.8 mg/dl (8.5-10.1); CREATININE 1.8 mg/dl (0.60-1.20); MAGNESIUM 1.7 mg/dl (1.8-2.4); POTASSIUM 3.5 mmol/L (3.5-5.1)
[2016-12-23] MEDS: POTASSIUM CHLORIDE 20 MEQ TABCR PO SCH (07:55)
[2016-12-23] MEDS: CALCIUM 600MG + VIT D 400 IU TAB PO SCH (07:55)
[2016-12-23] MEDS: POLYETHYLENE (MIRALAX) 17 GM PACK PO SCH (07:55)
[2016-12-23] MEDS: CITALOPRAM 20 MG TAB PO SCH (07:55)
[2016-12-23] MEDS: DOCUSATE SODIUM 100 MG CAP PO SCH (07:55)
[2016-12-23 08:00] VITALS: O2SAT 94
[2016-12-23] MEDS ORDERED: MAGNESIUM SULFATE 1GM / D5W 1 GM in PREMIXED IN D5W 100 ML IV ONE (09:30)
--- NOTE | 2016-12-23 10:19 | Nephrology Progress Note ---
Nephrology Progress Note Date of Service: December 23, 2016. Subjective completed heparin bridge/ on coumadin for rue dvt from / in setting of PICC; pleurex removed yesterday; nearing end of vanco course; no pain or N. ambulates in halls. not dypsneic. denies voiding difficulties Objective Date Time Temp Pulse Resp B/P Pulse Ox O2 Delivery O2 Flow Rate FiO2 12/23/16 07:29 37.0 90 18 111/69 94 Room Air 12/23/16 00:13 37.4 97 20 146/73 94 Room Air 12/23/16 00:10 Room Air 12/22/16 16:00 Room Air 12/22/16 15:13 37.0 98 16 125/59 95 Room Air Physical Exam: General-alert, interactive, appropriate, on RA, sitting up doing word find puzzles Eyes-no scleral icterus ENT-mmm Neck-supple Lungs-crx at left base with left pleurex catheter now removed Heart-regular Abdomen-bs+ s/nt/nd Extremities-+1-2+ ankle edema Neuro-bean, fluent speech with underlying dementia Current Inpatient Medications Medications (Trade) Dose Ordered Sig/Yfn Route Start Time Stop Time Status Last Admin Dose Admin Acetaminophen (Tylenol Tab) 650 mg Q4H PRN PO 12/16/16 18:30 01/15/17 18:29 12/19/16 16:47 650 MG Ondansetron HCl (Zofran Inj) 4 mg Q6H PRN IV 12/16/16 18:30 01/15/17 18:29 12/20/16 20:31 4 MG Citalopram Hydrobromide (celeXA TAB) 10 mg QAM PO 12/17/16 09:00 01/16/17 08:59 12/23/16 07:55 10 MG Docusate Sodium (coLACE CAP) 100 mg BID PO 12/16/16 21:00 01/15/17 20:59 12/23/16 07:55 100 MG Heparin Sodium (Porcine) (Heparin 10 Unit/ ml 5 ml Flush) 5 ml PRN PRN FLUSH 12/17/16 02:00 01/16/17 01:59 12/19/16 07:51 5 ML Polyethylene (Miralax Powder Packet) 17 gm DAILY PO 12/18/16 09:00 01/17/17 08:59 12/22/16 07:51 17 GM Bisacodyl (Dulcolax Tab) 5 mg DAILY PRN PO 12/17/16 23:15 01/16/17 23:14 Senna (Senokot Tab) 17.2 mg HS PO 12/18/16 21:00 01/17/17 20:59 12/22/16 21:30 17.2 MG Vancomycin HCl (Consult) 1 ea UD PRN N/A 12/18/16 15:00 01/17/17 14:59 Ropinirole HCl (Requip Tab) 0.25 mg HS PO 12/19/16 21:00 01/18/17 20:59 12/22/16 21:30 0.25 MG Potassium Chloride (Klor-Con Tab) 20 meq QAM PO 12/21/16 09:00 01/20/17 08:59 12/23/16 07:55 20 MEQ Calcium/Vitamin D (Caltrate Plus Tab) 1 tab BID PO 12/20/16 21:00 01/19/17 20:59 12/23/16 07:55 1 TAB Warfarin Sodium (Coumadin Tab) 2.5 mg DAILY@16 PO 12/22/16 16:00 01/21/17 15:59 12/22/16 16:27 2.5 MG Last 24 Hours Test 12/23/16 07:01 White Blood Count 5.59 K/uL Red Blood Count 3.52 M/uL Hemoglobin 9.7 g/dL Hematocrit 30.3 % Mean Corpuscular Volume 86.1 fL Mean Corpuscular Hemoglobin 27.6 pg Mean Corpuscular Hemoglobin Concent 32.0 g/dl RDW Standard Deviation 48.8 fL RDW Coefficient of Variation 15.6 % Platelet Count 223 K/uL Mean Platelet Volume 8.5 fL Prothrombin Time 38.4 SECONDS Prothromb Time International Ratio 3.4 Activated Partial Thromboplast Time 35.1 SECONDS Partial Thromboplastin Ratio 1.4 Sodium Level 142 mmol/L Potassium Level 3.5 mmol/L Chloride Level 107 mmol/L Carbon Dioxide Level 28 mmol/L Anion Gap 7.0 mmol/L Blood Urea Nitrogen 16 mg/dl Creatinine 1.80 mg/dl Est Creatinine Clear Calc Drug Dose 18.7 ml/min Estimated GFR () 29.0 Estimated GFR (Non- 25.0 BUN/Creatinine Ratio 8.7 Random Glucose 85 mg/dl Calcium Level 7.8 mg/dl Magnesium Level 1.7 mg/dl Random Vancomycin Level 13.8 mcg/ml Assessment & Plan 86 yo female w/ malignant pleural effusion/ lung adeno CA seen for follow up of rafaela in setting of elevated vanco level and nsaids. ID following for S aureus septicemia . vanco stop date is 12/24. on coumadin for RUE dvt RAFAELA from [id number] in setting of nsaids and vanco. minimal recovery past several days but at least creatinine stable. iv fluids were stopped recently secondary to signs of fluid overload; CXR showed improved vasc congestion 12/20 so no lasix. edema is improving now. vanco has been restarted- blood and urine cultures negative except for yeast in the urine. vanco levels are appropriate. kidneys are atrophic but no hydro. no dialysis indicated at this time and hopefully renal improvement will continue and there will be no need. peak creatinine was 2.2 on 12/16 admission. baseline creatinine 0.8-1.0, from past month. -daily bmp while in hospital -follow vanco levels while she remains on it -avoid further nsaids -no ivf needed; prn lasix/diuretics only -will recheck uacm, cx if needed, and prot/creat ratio given ongoing edema; doubt would pursue invasive w/u however if proteinuric, though could certainly consider further labs >>>at d/c recommend BMP to come to me q Mon and Thurs x 4 wks; check mag, hgb q Mon x 4 wks >>>recommend f/u in CKD clinic in [facility] in 2-4 wks w/ myself, Dr Barry, or MARY Braun -recommend CXR 2 view w/in a week <>may need to resume lasix but would recommend holding at hospital d/c hypokalemia-stable/improved. no significant diarrhea noted. perhaps losing potassium in the urine secondary to post atn diuresis. mag acceptable today -cont daily standing 20 mEq; no further supplement needed today -cont daily bmp appreciate consult; will follow with you.
--- NOTE | 2016-12-23 11:55 | Progress Note ---
Subjective Date of Service: December 23, 2016. Subjective Pt evaluation today including: conversation w/ patient, physical exam, lab review, review of studies, review of inpatient medication list Saw/examined the patient in room 257 She is laying comfortably in bed, denies any pain, denies shortness of breath/ chest pain Review of Systems Constitutional: No chills, No fever Respiratory: No cough, No dyspnea on exertion, No shortness of breath, No sputum, No wheezing Cardiac: No chest pain Medications Current Inpatient Medications Medications (Trade) Dose Ordered Sig/Yfn Route Start Time Stop Time Status Last Admin Dose Admin Acetaminophen (Tylenol Tab) 650 mg Q4H PRN PO 12/16/16 18:30 01/15/17 18:29 12/19/16 16:47 650 MG Ondansetron HCl (Zofran Inj) 4 mg Q6H PRN IV 12/16/16 18:30 01/15/17 18:29 12/20/16 20:31 4 MG Citalopram Hydrobromide (celeXA TAB) 10 mg QAM PO 12/17/16 09:00 01/16/17 08:59 12/23/16 07:55 10 MG Docusate Sodium (coLACE CAP) 100 mg BID PO 12/16/16 21:00 01/15/17 20:59 12/23/16 07:55 100 MG Heparin Sodium (Porcine) (Heparin 10 Unit/ ml 5 ml Flush) 5 ml PRN PRN FLUSH 12/17/16 02:00 01/16/17 01:59 12/19/16 07:51 5 ML Polyethylene (Miralax Powder Packet) 17 gm DAILY PO 12/18/16 09:00 01/17/17 08:59 12/22/16 07:51 17 GM Bisacodyl (Dulcolax Tab) 5 mg DAILY PRN PO 12/17/16 23:15 01/16/17 23:14 Senna (Senokot Tab) 17.2 mg HS PO 12/18/16 21:00 01/17/17 20:59 12/22/16 21:30 17.2 MG Vancomycin HCl (Consult) 1 ea UD PRN N/A 12/18/16 15:00 01/17/17 14:59 Ropinirole HCl (Requip Tab) 0.25 mg HS PO 12/19/16 21:00 01/18/17 20:59 12/22/16 21:30 0.25 MG Potassium Chloride (Klor-Con Tab) 20 meq QAM PO 12/21/16 09:00 01/20/17 08:59 12/23/16 07:55 20 MEQ Calcium/Vitamin D (Caltrate Plus Tab) 1 tab BID PO 12/20/16 21:00 01/19/17 20:59 12/23/16 07:55 1 TAB Warfarin Sodium (Coumadin Tab) 2.5 mg DAILY@16 PO 12/22/16 16:00 01/21/17 15:59 Future Hold 12/22/16 16:27 2.5 MG Objective Vital Signs Date Time Temp Pulse Resp B/P Pulse Ox O2 Delivery O2 Flow Rate FiO2 12/23/16 08:00 94 Room Air 12/23/16 07:29 37.0 90 18 111/69 94 Room Air 12/23/16 00:13 37.4 97 20 146/73 94 Room Air 12/23/16 00:10 Room Air 12/22/16 16:00 Room Air 12/22/16 15:13 37.0 98 16 125/59 95 Room Air Physical Exam General Appearance: no apparent distress Respiratory/Chest: lungs clear, normal breath sounds, no respiratory distress, no accessory muscle use Cardiovascular: regular rate, rhythm, no edema, no murmur Abdomen: normal bowel sounds, non tender, soft Extremities: + swelling, + pertinent finding (+1 pitting edema b/l LE) Neurologic/Psychiatric: no motor/sensory deficits, alert, normal mood/affect Laboratory Results Last 24 Hours Test 12/23/16 07:01 White Blood Count 5.59 K/uL Red Blood Count 3.52 M/uL Hemoglobin 9.7 g/dL Hematocrit 30.3 % Mean Corpuscular Volume 86.1 fL Mean Corpuscular Hemoglobin 27.6 pg Mean Corpuscular Hemoglobin Concent 32.0 g/dl RDW Standard Deviation 48.8 fL RDW Coefficient of Variation 15.6 % Platelet Count 223 K/uL Mean Platelet Volume 8.5 fL Prothrombin Time 38.4 SECONDS Prothromb Time International Ratio 3.4 Activated Partial Thromboplast Time 35.1 SECONDS Partial Thromboplastin Ratio 1.4 Sodium Level 142 mmol/L Potassium Level 3.5 mmol/L Chloride Level 107 mmol/L Carbon Dioxide Level 28 mmol/L Anion Gap 7.0 mmol/L Blood Urea Nitrogen 16 mg/dl Creatinine 1.80 mg/dl Est Creatinine Clear Calc Drug Dose 18.7 ml/min Estimated GFR () 29.0 Estimated GFR (Non- 25.0 BUN/Creatinine Ratio 8.7 Random Glucose 85 mg/dl Calcium Level 7.8 mg/dl Magnesium Level 1.7 mg/dl Random Vancomycin Level 13.8 mcg/ml Assessment and Plan This is an 86 year old female with a PMH of 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 creatinine trending down to 1.8 today will need a BMP every Wednesday and for four weeks to be sent to nephrology Mg and Hgb should be obtained every Wednesday for four weeks CKD clinic in 2-[address] Soto or Dr. Barry she will need a CXR in one week - PleurX catheter removed; if fluid builds back up, will need to restart Lasix, for now, no Lasix on discharge 12/22 likely secondary to vancomycin use; ATN possibly exacerbated by NSAID use creatinine from 2.2 on admission (12/16) was discharged on 12/12 with < 1 creatinine trending down, though slight uptick today to 1.9 appreciate nephrology input vancomycin has been restarted, with stop date on 12/24 no NSAIDs at this time, and avoid nephrotoxic agents when able good PO intake at this time, no IVFs needed for now R Upper Extremity DVT 12/23 hold Coumadin tonight with INR of 3.4 today will need to restart at lower dose of 2mg daily 12/22 RUE U/S acute deep venous thrombosis primarily involving the basilic, axillary, and proximal subclavian veins IV heparin & Coumadin will stop IV heparin today (12/22); INR = 2.1; continue Coumadin at lower dose, 2.5mg tonight (2-3 months) Malignant Pleural Effusion 12/23 PleurX catheter removed today, monitor for effusion/shortness of breath - holding Lasix on discharge 12/22 secondary to adenocarcinoma of the lung s/p PleurX catheter on the L will obtain CT chest today to check effusion removal of PleurX as per cardiothoracic surgery, appreciate input MRSA Bacteremia 12/23 received Vancomycin yesterday can stop on discharge, appreciate ID input 12/22 was started on Vancomycin as per ID this was held initially due to ATN and her kidney injury appreciate ID input, last date for vancomycin is 12/24 random levels drawn, and vancomycin was held today (12/22), level is < 15, so will give one last dose of Vancomycin today PICC line removed; can stop Vancomycin after today's dose Adenocarcinoma of L Lung follows with oncology malignant pleural effusion managed by cardiothoracic surgery to have outpatient oncology f/u with Dr. Pollack Anemia of Chronic Disease stable; Hgb >10, monitor DVT ppx Coumadin (IV heparin d/c'd today; 12/22) DNR d/c to [facility] today (12/23)
[2016-12-23] MEDS ORDERED: CALCTAB7 PO (12:07)
[2016-12-23] MEDS ORDERED: MCRK20 PO (12:07)
[2016-12-23] MEDS ORDERED: WARF1TAB PO (12:07)
[2016-12-23] MEDS ORDERED: RQP25 PO (12:07)
--- NOTE | 2016-12-23 12:14 | Discharge Instructions ---
Discharge Instructions Date of Service December 23, 2016. Admission Reason for Admission: Acute Renal Failure Discharge Discharge Diagnosis / Problem: Acute Kidney Injury, ATN, Malignant Pleural Effusion Discharge Goals Goal(s): Decrease discomfort, Improve function, Diagnostic testing, Therapeutic intervention Activity Recommendations Activity Level: Up Ad Chelsie Therapies: Physical Therapy, Occupational Therapy . Additional Information Patient informed of condition: Yes Advance Directives: Yes DNR: Yes Level of Care: Skilled Communicable Disease: No Prognosis: Stable Simon Catheter: No Instructions / Follow-Up Instructions / Follow-Up Patient will need a BMP drawn every Wednesday and for the next four weeks ; please send results to Dr. Soto, nephrology Patient will need a CBC and Mg drawn every Wednesday for the next four weeks; send these results to Dr. Soto, nephrology Patient should follow-up with nephrology in 2-4 weeks, in the CKD clinic Patient should have INR drawn every other day; restart Coumadin at 1mg on Wednesday , 12/25 - goal INR of 2-3; should be on Coumadin for 3-6 months Please check CXR in one week - if pleural effusion worsens or if shortness of breath develops, may need to restart Lasix - for now, it is held Current Hospital Diet Patient's current hospital diet: Regular Diet Discharge Diet Recommended Diet: Regular Diet Pending Studies Studies pending at discharge: yes List of pending studies: Urine studies, protein:creat ratio Medical Emergencies . Who to Call and When: Medical Emergencies: If at any time you feel your situation is an emergency, please call 911 immediately. . Non-Emergent Contact Non-Emergency issues call your: Primary Care Provider . . "Provider Documentation" section prepared by Farrah White. . Core Measure Problem Core Measures: None
--- NOTE | 2016-12-23 12:21 | Discharge Summary ---
Discharge Summary Date of Service December 23, 2016. Discharge Summary Admission Date: December 16, 2016 at 17:24 Discharge Date: December 23, 2016 Discharge Disposition: residential facility Principal Diagnosis: Acute Kidney Injury, ATN Malignant Pleural Effusion R upper extremity DVT Adenocarcinoma of Lung Medication Reconciliation New Medications: Warfarin Sodium (Coumadin) 1 Mg Tab 1 TAB PO DAILY for 10 Days, #10 TAB 0 Refills Calcium Carbonate-Vitamin D W/ (Caltrate 600 Plus) 1 Tab Tab 1 TAB PO BID for 30 Days, #60 TAB Potassium Chloride (Klor-Con M20) 20 Meq Tabcr 20 MEQ PO QAM for 30 Days, #30 TABS Ropinirole HCl (Ropinirole HCl) 0.25 Mg Tab 0.25 MG PO HS for 30 Days, #30 TAB Continued Medications: Acetaminophen Tab (Tylenol) 325 Mg Tab 650 MG PO Q6H PRN for Pain or Fever for 30 Days, #240 TAB 0 Refills Aspirin (Aspirin) 325 Mg Ectab 325 MG PO BID, #60 Citalopram (Citalopram Hydrobromide) 20 Mg Tab 10 MG PO QAM for 30 Days, TAB 1 Refill Docusate Sodium (Docusate Sodium) 100 Mg Cap 100 MG PO BID for 30 Days, CAP 0 Refills Discontinued Medications: Celecoxib (Celebrex) 200 Mg Cap 1 CAP PO BID, #60 [vancomycin] () 1200 MG IV. Q12 for 14 Days, 0 Refills Admission Information HPI (per Admitting provider): This is an 86 year old female with PMH listed below who was sent to the ED from [facility] for abnormal labs. History not obtainable from patient due to baseline Alzheimer's dementia. Patient was recently admitted to [facility] under Dr. Coates's service for MRSA bacteremia, infected left PleurX catheter which was replaced, malignant left pleural effusion. She was seen by ID, had echo negative for vegetation, and was discharged on vancomycin via PICC line on . On patient's creat increased from 0.7 to 2.1. She was seen at SNF by Claudine Mejia PA-C. Vancomycin was held and patient was given 1 liter of IVF' s per his note, however remained in renal failure today with creat of 2.2. Patient's vancomycin trough was elevated to approximately 40 on 12/14 and today. Patient was noted to have decreased PO intake at SNF. Patient is unable to recall any recent events. She is oriented to person and place but disoriented to date. Family states her mentation is at baseline. Pt's sister Jessica and nephew Dajuan state patient was previously healthy before dx of lung cancer after presenting to PCP in September 2016 with cough and SOB. She was seen by PCP Dr. Darshan Hudson in [place] and was placed on abx. She then presented to [facility] where she had thoracentesis and PleurX catheter placed on the left for malignant pleural effusion. She was placed in SNF, then directly admitted by Dr. Coates for infected PleurX catheter. Family saw patient yesterday and their impression was she was doing well yesterday, up in chair, eating. Patient admits to fatigue and occasional nonproductive cough. No reported fever at SNF. Patient denies chills, dizziness, MATTHEWS, SOB, chest pain, abdominal pain, N/V, diarrhea, dysuria, frequency, urgency. Physical Exam (per Admitting): General Appearance: no apparent distress, + thin, + pertinent finding ( pleasantly demented elderly female) Head: normocephalic, atraumatic Eyes: normal inspection, PERRL, EOMI ENT: pharynx normal, + pertinent finding (right ear hearing aid. slightly dry oral mucosa. ) Neck: supple, trachea midline Respiratory/Chest: lungs clear, no respiratory distress, + crackles ( crackles left base. pleural catheter in place draining clear fluid) Cardiovascular: regular rate, rhythm, no murmur Abdomen/GI: normal bowel sounds, non tender, soft Back: no CVA tenderness Extremities/Musculoskelatal: no calf tenderness, + pertinent finding (1+ pedal edema bilaterally. PICC line RUE. ) Neurologic/Psych: alert, normal mood/affect, + disoriented (oriented to person and place only. disoriented to year. 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 creatinine trending down to 1.8 today will need a BMP every Wednesday and for four weeks to be sent to nephrology Mg and Hgb should be obtained every Wednesday for four weeks CKD clinic in 2-[address] Soto or Dr. Barry she will need a CXR in one week - PleurX catheter removed; if fluid builds back up, will need to restart Lasix, for now, no Lasix on discharge 12/22 likely secondary to vancomycin use; ATN possibly exacerbated by NSAID use creatinine from 2.2 on admission (12/16) was discharged on 12/12 with < 1 creatinine trending down, though slight uptick today to 1.9 appreciate nephrology input vancomycin has been restarted, with stop date on 12/24 no NSAIDs at this time, and avoid nephrotoxic agents when able good PO intake at this time, no IVFs needed for now R Upper Extremity DVT 12/23 hold Coumadin tonight with INR of 3.4 today will need to restart at lower dose of 2mg daily 12/22 RUE U/S acute deep venous thrombosis primarily involving the basilic, axillary, and proximal subclavian veins IV heparin & Coumadin will stop IV heparin today (12/22); INR = 2.1; continue Coumadin at lower dose, 2.5mg tonight (2-3 months) Malignant Pleural Effusion 12/23 PleurX catheter removed today, monitor for effusion/shortness of breath - holding Lasix on discharge 12/22 secondary to adenocarcinoma of the lung s/p PleurX catheter on the L will obtain CT chest today to check effusion removal of PleurX as per cardiothoracic surgery, appreciate input MRSA Bacteremia 12/23 received Vancomycin yesterday can stop on discharge, appreciate ID input 12/22 was started on Vancomycin as per ID this was held initially due to ATN and her kidney injury appreciate ID input, last date for vancomycin is 12/24 random levels drawn, and vancomycin was held today (12/22), level is < 15, so will give one last dose of Vancomycin today PICC line removed; can stop Vancomycin after today's dose Adenocarcinoma of L Lung follows with oncology malignant pleural effusion managed by cardiothoracic surgery to have outpatient oncology f/u with Dr. Pollack Anemia of Chronic Disease stable; Hgb >10, monitor DVT ppx Coumadin (IV heparin d/c'd today; 12/22) DNR d/c to [facility] today (12/23) Total time spent on discharge = 50 minutes This includes examination of the patient, discharge planning, medication reconciliation, and communication with other providers. Discharge Instructions Patient will need a BMP drawn every Wednesday and for the next four weeks ; please send results to Dr. Soto, nephrology Patient will need a CBC and Mg drawn every Wednesday for the next four weeks; send these results to Dr. Soto, nephrology Patient should follow-up with nephrology in 2-4 weeks, in the CKD clinic Patient should have INR drawn every other day; restart Coumadin at 1mg on Wednesday , 12/25 - goal INR of 2-3; should be on Coumadin for 3-6 months Please check CXR in one week - if pleural effusion worsens or if shortness of breath develops, may need to restart Lasix - for now, it is held Additional Copies To Kg Pollack D.O. Andersen, Stacy L., MD
[2016-12-23 12:25] LABS: URINE APPEARANCE CLEAR (CLEAR); URINE BILIRUBIN NEG (NEG); URINE COLOR YELLOW; URINE NITRITE NEG (NEG); URINE SPECIFIC GRAVITY 1.013 (1.000-1.030); UROBILINOGEN NEG (NEG); ZZUR CULT IF INDIC CLEAN CATCH NO
[2016-12-23 12:36] LABS: MANUAL MICROSCOPIC REQUIRED? NO; REVIEW REQ? NO
[2016-12-23 12:58] LABS: URINE PROTIEN/CREAT RATIO 0.5 (0-0.2); URINE TOTAL PROTEIN 35.8 mg/dl (0-11.9)
--- NOTE | 2016-12-23 13:49 | SURGERY PROGRESS NOTE ---
DATE: 12/23/2016 DATE: 12/23/2016. Ms. Sanchez was seen today. She looks good. We are going to pull out her PleurX catheter as I do not think there is enough fluid being drained nor is there enough on her CT scan to warrant doing anything else.
[2016-12-23 15:05] VITALS: BP 105/64; PULSE 94; TEMP 36.9; O2SAT 94
--- NOTE | 2016-12-24 09:16 | Progress Note ---
Progress Note Date of Service December 23, 2016. Progress Note Pleurex catheter removed without difficulty.
== END 2016-12-23 15:25 | DRG 682 ==
LOC: ENRESERVTM → ENRESERVDT → EDBD 15:06 → C.EDC 15:07 → C.MS2W 17:24
PROVIDERS: ADMIT Hospitalist; ATTEND Family Medicine
DX: N17.0 Acute kidney failure with tubular necrosis (principal); R65.20 Severe sepsis without septic shock; C34.12 Malignant neoplasm of upper lobe, left bronchus or lung; I82.621 Acute embolism and thrombosis of deep veins of right upper extremity; T82.818A Embolism due to vascular prosthetic devices, implants and grafts, initial encounter; J91.0 Malignant pleural effusion; R78.81 Bacteremia; I50.9 Heart failure, unspecified; G30.9 Alzheimer's disease, unspecified; F02.80 Dementia in other diseases classified elsewhere, unspecified severity, without behavioral disturbance, psychotic disturbance, mood disturbance, and anxiety; E83.51 Hypocalcemia; M79.661 Pain in right lower leg; M79.662 Pain in left lower leg; D63.8 Anemia in other chronic diseases classified elsewhere; E87.6 Hypokalemia; B95.62 Methicillin resistant Staphylococcus aureus infection as the cause of diseases classified elsewhere; Z66 Do not resuscitate; Z79.82 Long term (current) use of aspirin; Z79.899 Other long term (current) drug therapy

== ENCOUNTER → 2017-01-07 | Outpatient (CLI) | payer OTHER ==
[~2017-01-07] MED LIST changes: +CALCTAB7 PO; -CLB200 PO; +MCRK20 PO; +RQP25 PO; +WARF1TAB PO; -vancomycin IV.
--- NOTE | 2017-01-07 12:02 | DIAGNOSTIC IMAGING REPORT ---
TWO VIEW CHEST CLINICAL HISTORY: Malignant pleural effusion. FINDINGS: PA and lateral chest radiographs are compared to chest x-ray and chest CT dated 12/22/2016. The PA view is degraded by patient rotation. The pleural drain at the left lung base has been removed from previous. The heart is mildly enlarged and there is atherosclerotic calcification of the thoracic aorta. The pulmonary vasculature is noncongested. Emphysema and chronic interstitial thickening are similar to previous. There are small pleural effusions with dense left basilar airspace consolidation. Fluid is again noted on the left major fissure. An irregular airspace opacity in the left upper lung is unchanged. There is no pneumothorax. The skeletal structures are osteopenic. Fusion hardware is seen in the upper lumbar spine. Degenerative change is noted in the thoracic spine. IMPRESSION: 1. A pleural drain at the left lung base has been removed from previous. Small pleural effusions persist and there is dense left basilar consolidation. Correlate clinically for evidence of superimposed pneumonia. 2. Cardiomegaly and emphysema. 3. A left upper lobe pulmonary lesion is partially visualized. This was better characterized on the recent chest CT. Correlation with the patient's oncological history will be required. Electronically signed by: Vincent Pitts M.D. 01/07/2017 12:01 PM Dictated Date/Time: 01/07/2017 11:59 AM
== END | disposition home or self-care (01) ==
LOC: C.RAD 11:28
PROVIDERS: ATTEND Surgery
DX: J91.0 Malignant pleural effusion (principal)